=== PATIENT | male | born 1960 | race Caucasian/White ===

== ENCOUNTER → 2016-10-13 | Outpatient (CLI) | payer OTHER ==
[2016-10-13 11:02] LABS: ALT 28 U/L (21-72); AST 25 U/L (17-59); Cholesterol 231 mg/dL (<200); HDL Cholesterol 34 mg/dL (40-60); Triglycerides 453 mg/dL (<150)
== END | disposition home or self-care (01) ==
LOC: LABWHC1 10:05
PROVIDERS: ATTEND Internal Medicine Cardiovascular Disease
DX: E78.2 Mixed hyperlipidemia (principal)
CPT/HCPCS: 36415; 80061; 84450; 84460

== ENCOUNTER 2018-06-07 09:17 | Emergency (ER) | payer BC, OTHER ==
[2018-06-07 09:24] VITALS: TEMP 98.3
--- NOTE | 2018-06-07 09:54 | ED ---
General Adult HPI - General Chief complaint: Shortness of Breath Stated complaint: Diff Breathing Time Seen by Provider: 06/07/18 09:26 Source: patient, RN notes reviewed Mode of arrival: ambulatory Limitations: no limitations - History of Present Illness Initial comments: Patient is a pleasant 58-year-old male presenting to the emergency department with dyspnea. Onset of symptoms was last night while lying down. Dyspnea was worse while lying down. Patient states dyspnea is also somewhat worse with exertion. No chest pain. Patient does have a history of similar symptoms previously when he first was diagnosed with atrial fibrillation. Patient does have a history of atrial fibrillation and is on Coumadin. No chest discomfort. No chest heaviness. No leg pain or leg swelling. - Related Data Home Medications Medication Instructions Recorded Confirmed glyBURIDE [Glyburide] 2.5 mg PO BID 10/26/15 06/07/18 Warfarin [Coumadin] 5 mg PO HS 05/03/16 06/07/18 Lisinopril [Zestril] 5 mg PO HS 06/07/18 06/07/18 Previous Rx's Medication Instructions Recorded Aspirin EC [Ecotrin Low Dose] 81 mg PO DAILY #30 tablet. 10/29/15 Atenolol [Tenormin] 50 mg PO BID #60 tab 10/29/15 Atorvastatin [Lipitor] 40 mg PO HS #30 tab 10/29/15 Furosemide [Lasix] 40 mg PO BID #4 tablet 06/07/18 Allergies Allergy/AdvReac Type Severity Reaction Status Date / Time No Known Allergies Allergy Verified 06/07/18 09:51 Review of Systems ROS Statement: Those systems with pertinent positive or pertinent negative responses have been documented in the HPI. ROS Other: All systems not noted in ROS Statement are negative. Constitutional: Denies: fever Eyes: Denies: eye pain ENT: Denies: ear pain Respiratory: Reports: dyspnea. Denies: cough Cardiovascular: Reports: dyspnea on exertion, orthopnea. Denies: chest pain Endocrine: Denies: fatigue Gastrointestinal: Denies: abdominal pain Genitourinary: Denies: dysuria Musculoskeletal: Denies: back pain Skin: Denies: rash Neurological: Denies: weakness Past Medical History Past Medical History: Atrial Fibrillation, Diabetes Mellitus, Hyperlipidemia, Hypertension History of Any Multi-Drug Resistant Organisms: None Reported Past Surgical History: Heart Catheterization With Stent Past Psychological History: No Psychological Hx Reported Smoking Status: Former smoker Past Alcohol Use History: None Reported Past Drug Use History: Marijuana General Exam Limitations: no limitations General appearance: alert, in no apparent distress Head exam: Present: atraumatic Eye exam: Present: normal appearance, PERRL ENT exam: Present: normal oropharynx Neck exam: Present: normal inspection Respiratory exam: Present: normal lung sounds bilaterally Cardiovascular Exam: Present: irregular rhythm Expanded Peripheral pulses: 2+: Radial (R), Radial (L), Posterior Tibialis (R), Posterior Tibialis (L), Dorsalis Pedis (R), Dorsalis Pedis (L) GI/Abdominal exam: Present: soft. Absent: tenderness Extremities exam: Present: normal inspection. Absent: pedal edema, calf tenderness Neurological exam: Present: alert Psychiatric exam: Present: normal affect, normal mood Skin exam: Present: normal color Course Vital Signs 06/07/18 06/07/18 06/07/18 09:21 10:24 10:56 Temperature 98.3 F Pulse Rate 77 59 L 70 Respiratory 19 16 16 Rate Blood Pressure 170/98 142/104 159/91 O2 Sat by Pulse 98 98 97 Oximetry EKG Findings - EKG Comments: EKG Findings:: A. fib with rate of 73. QRS 100. QT 402. QTC 442. Normal axis. Normal QRS. Inverted T waves inferior. Medical Decision Making - Medical Decision Making Patient reevaluated and resting comfortably in bed. Patient updated on results and plan for admission. Patient is advised for admission and further evaluation and treatment. This included cardiac evaluation and cardiology consult. Despite this patient refuses. Patient is aware that symptoms could worsen and become life-threatening. Patient states he had other stuff that he needs to do. Patient does demonstrate medical decision making and will leave AGAINST MEDICAL ADVICE. Patient is agreeable to close follow-up with his doctor this week. - Lab Data Result diagrams: 06/07/18 10:00 06/07/18 10:00 Lab Results 06/07/18 06/07/18 06/07/18 Range/Units 10:00 10:00 10:00 WBC 8.7 (3.8-10.6) k/uL RBC 5.12 (4.30-5.90) m/uL Hgb 14.8 (13.0-17.5) gm/dL Hct 45.3 (39.0-53.0) % MCV 88.4 (80.0-100.0) fL MCH 28.8 (25.0-35.0) pg MCHC 32.6 (31.0-37.0) g/dL RDW 14.2 (11.5-15.5) % Plt Count 293 (150-450) k/uL Neutrophils % 69 % Lymphocytes % 19 % Monocytes % 7 % Eosinophils % 3 % Basophils % 1 % Neutrophils # 6.0 (1.3-7.7) k/uL Lymphocytes # 1.7 (1.0-4.8) k/uL Monocytes # 0.6 (0-1.0) k/uL Eosinophils # 0.2 (0-0.7) k/uL Basophils # 0.1 (0-0.2) k/uL PT (9.0-12.0) sec INR (<1.2) APTT (22.0-30.0) sec Sodium 142 (137-145) mmol/L Potassium 4.0 (3.5-5.1) mmol/L Chloride 109 H (98-107) mmol/L Carbon Dioxide 25 (22-30) mmol/L Anion Gap 8 mmol/L BUN 11 (9-20) mg/dL Creatinine 0.65 L (0.66-1.25) mg/dL Est GFR (CKD-EPI)AfAm >90 (>60 ml/min/1.73 sqM) Est GFR (CKD-EPI)NonAf >90 (>60 ml/min/1.73 sqM) Glucose 124 H (74-99) mg/dL Calcium 8.7 (8.4-10.2) mg/dL Total Bilirubin 0.6 (0.2-1.3) mg/dL AST 24 (17-59) U/L ALT 18 L (21-72) U/L Alkaline Phosphatase 67 (38-126) U/L Total Creatine Kinase 257 H (55-170) U/L CK-MB (CK-2) 6.4 H (0.0-2.4) ng/mL CK-MB (CK-2) Rel Index 2.5 Troponin I 0.013 (0.000-0.034) ng/mL NT-Pro-B Natriuret Pep pg/mL Total Protein 6.8 (6.3-8.2) g/dL Albumin 3.7 (3.5-5.0) g/dL 06/07/18 06/07/18 Range/Units 10:00 10:00 WBC (3.8-10.6) k/uL RBC (4.30-5.90) m/uL Hgb (13.0-17.5) gm/dL Hct (39.0-53.0) % MCV (80.0-100.0) fL MCH (25.0-35.0) pg MCHC (31.0-37.0) g/dL RDW (11.5-15.5) % Plt Count (150-450) k/uL Neutrophils % % Lymphocytes % % Monocytes % % Eosinophils % % Basophils % % Neutrophils # (1.3-7.7) k/uL Lymphocytes # (1.0-4.8) k/uL Monocytes # (0-1.0) k/uL Eosinophils # (0-0.7) k/uL Basophils # (0-0.2) k/uL PT 34.3 H (9.0-12.0) sec INR 3.8 H (<1.2) APTT 33.8 H (22.0-30.0) sec Sodium (137-145) mmol/L Potassium (3.5-5.1) mmol/L Chloride (98-107) mmol/L Carbon Dioxide (22-30) mmol/L Anion Gap mmol/L BUN (9-20) mg/dL Creatinine (0.66-1.25) mg/dL Est GFR (CKD-EPI)AfAm (>60 ml/min/1.73 sqM) Est GFR (CKD-EPI)NonAf (>60 ml/min/1.73 sqM) Glucose (74-99) mg/dL Calcium (8.4-10.2) mg/dL Total Bilirubin (0.2-1.3) mg/dL AST (17-59) U/L ALT (21-72) U/L Alkaline Phosphatase (38-126) U/L Total Creatine Kinase (55-170) U/L CK-MB (CK-2) (0.0-2.4) ng/mL CK-MB (CK-2) Rel Index Troponin I (0.000-0.034) ng/mL NT-Pro-B Natriuret Pep 1350 pg/mL Total Protein (6.3-8.2) g/dL Albumin (3.5-5.0) g/dL - Radiology Data Radiology results: image reviewed (Chest x-ray does show some increased interstitial markings.) Disposition Clinical Impression: Congestive heart failure Disposition: Left Against Medical Advice Instructions: Heart Failure (ER) Additional Instructions: Please follow-up with your doctor tomorrow or or no later than Tuesday. Return for chest pain, difficulty breathing, fatigue, worsening symptoms or other concerns. Prescriptions: Furosemide [Lasix] 40 mg PO BID #4 tablet Is patient prescribed a controlled substance at d/c from ED?: No Referrals: Payton Scott MD [Primary Care Provider] - 1-2 days Time of Disposition: 12:27
--- NOTE | 2018-06-07 10:29 | XR ---
EXAMINATION TYPE: XR chest 2V DATE OF EXAM: 06/07/2018 COMPARISON: Prior chest x-ray 05/03/2016 HISTORY: Difficulty breathing TECHNIQUE: Frontal and lateral views of the chest are obtained. FINDINGS: The heart is enlarged. Interstitium is increased. There is no evident pneumothorax or pleu ral effusion. Central vascularity is prominent. There are overlying cardiac leads. IMPRESSION: Findings suggest congestive heart failure, correlate. Follow-up recommended.
[2018-06-07 10:33] LABS: Basophils # (A) 0.1 k/uL (0-0.2); Basophils % (A) 1 %; Eosinophils # (A) 0.2 k/uL (0-0.7); Eosinophils % (A) 3 %; HCT 45.3 % (39.0-53.0); HGB 14.8 gm/dL (13.0-17.5); Lymphocytes # (A) 1.7 k/uL (1.0-4.8); Lymphocytes % (A) 19 %; MCH 28.8 pg (25.0-35.0); MCHC 32.6 g/dL (31.0-37.0); MCV 88.4 fL (80.0-100.0); Mean Platelet Volume 6.6; Monocytes # (A) 0.6 k/uL (0-1.0); Monocytes % (A) 7 %; Neutrophils % (A) 69 %; Platelet Count 293 k/uL (150-450); RBC 5.12 m/uL (4.30-5.90); RDW 14.2 % (11.5-15.5); WBC 8.7 k/uL (3.8-10.6)
[2018-06-07 10:46] LABS: ALT 18 U/L (21-72); AST 24 U/L (17-59); Albumin 3.7 g/dL (3.5-5.0); Alkaline Phosphatase 67 U/L (38-126); Anion Gap 8 mmol/L; Blood Urea Nitrogen 11 mg/dL (9-20); Calcium 8.7 mg/dL (8.4-10.2); Carbon Dioxide 25 mmol/L (22-30); Chloride 109 mmol/L (98-107); Glucose 124 mg/dL (74-99); Sodium 142 mmol/L (137-145); Total Bilirubin 0.6 mg/dL (0.2-1.3); Total Protein 6.8 g/dL (6.3-8.2)
[2018-06-07 10:48] LABS: INR 3.8 (<1.2); Partial Thromboplastin Time 33.8 sec (22.0-30.0); Prothrombin Time 34.3 sec (9.0-12.0)
[2018-06-07 11:03] LABS: Creatine Kinase MB 6.4 ng/mL (0.0-2.4); Troponin I 0.013 ng/mL (0.000-0.034)
[2018-06-07] MEDS ORDERED: FUROSEMIDE 10 MG/ML 4 ML VIAL IV STA (12:25)
[2018-06-07 12:41] VITALS: BP 157/107; PULSE 74; RESP 18
== END 2018-06-07 12:40 | disposition left against medical advice (07) ==
LOC: EC 09:17
DX: I50.9 Heart failure, unspecified (principal); I48.91 Unspecified atrial fibrillation; I11.0 Hypertensive heart disease with heart failure; E11.9 Type 2 diabetes mellitus without complications; Z87.891 Personal history of nicotine dependence; Z79.01 Long term (current) use of anticoagulants; Z79.84 Long term (current) use of oral hypoglycemic drugs; Z79.899 Other long term (current) drug therapy; Z95.5 Presence of coronary angioplasty implant and graft
CPT/HCPCS: 36415; 71046; 80053; 82550; 82553; 83880; 84484; 85025; 85610; 85730; 93005; 96374; 99285

== ENCOUNTER 2018-06-29 09:28 | Emergency (ER) | payer BC ==
[2018-06-29] MEDS ORDERED: MORPHINE SULFATE 2 MG/ML SYRINGE IVP STA (10:18)
[2018-06-29] MEDS ORDERED: ONDANSETRON 4 MG/2 ML VIAL IVP STA (10:18)
[2018-06-29] MEDS ORDERED: SODIUM CHLORIDE 0.9% 1,000 ML IV STA ×2 (10:18)
--- NOTE | 2018-06-29 10:49 | ED ---
Abdominal Pain HPI - General Chief Complaint: Abdominal Pain Stated Complaint: Stomach pain Time Seen by Provider: 06/29/18 09:56 Source: patient, RN notes reviewed, old records reviewed Mode of arrival: ambulatory Limitations: no limitations - History of Present Illness Initial Comments: 58-year-old male with left-sided epigastric abdominal pain radiating towards back for the past 2 days. Patient is concerning his pancreatitis. Reports he has a history of heart failure and has sent his heart. He denies a specific chest pain or shortness of breath. Patient relates that this pain is similar to his previous pains otitis episodes. Patient denies any leg swelling peripheral paresthesias, he states his pain is a 1210 while laying in bed. Denies any falls or trauma. - Related Data Home Medications Medication Instructions Recorded Confirmed glyBURIDE [Glyburide] 2.5 mg PO BID 10/26/15 06/29/18 Warfarin [Coumadin] 5 mg PO HS 05/03/16 06/29/18 Lisinopril [Zestril] 10 mg PO DAILY 06/29/18 06/29/18 Previous Rx's Medication Instructions Recorded Aspirin EC [Ecotrin Low Dose] 81 mg PO DAILY #30 tablet. 10/29/15 Atenolol [Tenormin] 50 mg PO BID #60 tab 10/29/15 Atorvastatin [Lipitor] 40 mg PO HS #30 tab 10/29/15 Furosemide [Lasix] 40 mg PO BID #4 tablet 06/07/18 Allergies Allergy/AdvReac Type Severity Reaction Status Date / Time No Known Allergies Allergy Verified 06/29/18 10:23 Review of Systems ROS Statement: Those systems with pertinent positive or pertinent negative responses have been documented in the HPI. ROS Other: All systems not noted in ROS Statement are negative. Past Medical History Past Medical History: Atrial Fibrillation, Diabetes Mellitus, Hyperlipidemia, Hypertension Additional Past Medical History / Comment(s): pancreatitis History of Any Multi-Drug Resistant Organisms: None Reported Past Surgical History: Heart Catheterization With Stent Past Psychological History: No Psychological Hx Reported Smoking Status: Former smoker Past Alcohol Use History: None Reported Past Drug Use History: Marijuana General Exam - General Exam Comments Initial Comments: Well-appearing 50-year-old male. Alert and oriented. Patient appears in acute distress. Limitations: no limitations General appearance: alert, in no apparent distress Head exam: Present: atraumatic, normocephalic, normal inspection Eye exam: Present: normal appearance, PERRL, EOMI. Absent: scleral icterus, conjunctival injection, periorbital swelling ENT exam: Present: normal exam, mucous membranes moist Neck exam: Present: normal inspection. Absent: tenderness, meningismus, lymphadenopathy Respiratory exam: Present: normal lung sounds bilaterally. Absent: respiratory distress, wheezes, rales, rhonchi, stridor Cardiovascular Exam: Present: regular rate, normal rhythm, normal heart sounds. Absent: systolic murmur, diastolic murmur, rubs, gallop, clicks GI/Abdominal exam: Present: soft, tenderness (Minimal epigastric and left upper quadrant tenderness.), normal bowel sounds. Absent: distended, guarding, rebound, rigid Extremities exam: Present: normal inspection, full ROM, normal capillary refill. Absent: tenderness, pedal edema, joint swelling, calf tenderness Back exam: Present: normal inspection Neurological exam: Present: alert Psychiatric exam: Present: normal affect, normal mood Course Vital Signs 06/29/18 06/29/18 06/29/18 09:40 11:26 13:58 Temperature 98.3 F Pulse Rate 62 70 65 Respiratory 20 18 18 Rate Blood Pressure 121/76 131/92 128/90 O2 Sat by Pulse 98 98 97 Oximetry 06/29/18 14:13 Temperature 98.0 F Pulse Rate 88 Respiratory 16 Rate Blood Pressure 135/82 O2 Sat by Pulse 98 Oximetry Medical Decision Making - Medical Decision Making Patient is a 58-year-old male presents return to the left upper quadrant abdominal pain for 2 days. Concern for pancreatitis. This time patient's labwork was reviewed and negative for any acute process. Patient labwork did show mild elevation of pancreatic enzymes. Lipase is 398. EKG was reviewed and shows A. fib. Patient has a history of A. fib. INR 2.4. Patient's white blood cell count is normal. Discussed at this time is a pancreatic enzymes are not high enough for admission. Liver enzymes are normal. Gall bladder ultrasound was reviewed and negative for any acute process. All questions answered return parameters were discussed. She has a follow-up appointment tomorrow with his PCP. - Lab Data Result diagrams: 06/29/18 10:10 06/29/18 10:10 Lab Results 10/18/18 10/18/18 10/18/18 Range/Units 10:10 10:10 10:10 WBC 9.0 (3.8-10.6) k/uL RBC 5.25 (4.30-5.90) m/uL Hgb 15.2 (13.0-17.5) gm/dL Hct 46.0 (39.0-53.0) % MCV 87.7 (80.0-100.0) fL MCH 28.9 (25.0-35.0) pg MCHC 33.0 (31.0-37.0) g/dL RDW 14.0 (11.5-15.5) % Plt Count 300 (150-450) k/uL Neutrophils % 66 % Lymphocytes % 21 % Monocytes % 7 % Eosinophils % 3 % Basophils % 1 % Neutrophils # 5.9 (1.3-7.7) k/uL Lymphocytes # 1.9 (1.0-4.8) k/uL Monocytes # 0.6 (0-1.0) k/uL Eosinophils # 0.2 (0-0.7) k/uL Basophils # 0.1 (0-0.2) k/uL PT (9.0-12.0) sec INR (<1.2) APTT (22.0-30.0) sec Sodium 142 (137-145) mmol/L Potassium 4.7 (3.5-5.1) mmol/L Chloride 111 H (98-107) mmol/L Carbon Dioxide 23 (22-30) mmol/L Anion Gap 8 mmol/L BUN 17 (9-20) mg/dL Creatinine 0.78 (0.66-1.25) mg/dL Est GFR (CKD-EPI)AfAm >90 (>60 ml/min/1.73 sqM) Est GFR (CKD-EPI)NonAf >90 (>60 ml/min/1.73 sqM) Glucose 128 H (74-99) mg/dL Plasma Lactic Acid Chris 1.6 (0.7-2.0) mmol/L Calcium 9.1 (8.4-10.2) mg/dL Total Bilirubin 0.8 (0.2-1.3) mg/dL AST 26 (17-59) U/L ALT 26 (21-72) U/L Alkaline Phosphatase 65 (38-126) U/L Troponin I (0.000-0.034) ng/mL NT-Pro-B Natriuret Pep pg/mL Total Protein 7.2 (6.3-8.2) g/dL Albumin 3.8 (3.5-5.0) g/dL Amylase 66 (30-110) U/L Lipase 396 H (23-300) U/L 06/29/18 06/29/18 06/29/18 Range/Units 10:10 10:10 10:10 WBC (3.8-10.6) k/uL RBC (4.30-5.90) m/uL Hgb (13.0-17.5) gm/dL Hct (39.0-53.0) % MCV (80.0-100.0) fL MCH (25.0-35.0) pg MCHC (31.0-37.0) g/dL RDW (11.5-15.5) % Plt Count (150-450) k/uL Neutrophils % % Lymphocytes % % Monocytes % % Eosinophils % % Basophils % % Neutrophils # (1.3-7.7) k/uL Lymphocytes # (1.0-4.8) k/uL Monocytes # (0-1.0) k/uL Eosinophils # (0-0.7) k/uL Basophils # (0-0.2) k/uL PT 21.7 H (9.0-12.0) sec INR 2.4 H (<1.2) APTT 29.5 (22.0-30.0) sec Sodium (137-145) mmol/L Potassium (3.5-5.1) mmol/L Chloride (98-107) mmol/L Carbon Dioxide (22-30) mmol/L Anion Gap mmol/L BUN (9-20) mg/dL Creatinine (0.66-1.25) mg/dL Est GFR (CKD-EPI)AfAm (>60 ml/min/1.73 sqM) Est GFR (CKD-EPI)NonAf (>60 ml/min/1.73 sqM) Glucose (74-99) mg/dL Plasma Lactic Acid Chris (0.7-2.0) mmol/L Calcium (8.4-10.2) mg/dL Total Bilirubin (0.2-1.3) mg/dL AST (17-59) U/L ALT (21-72) U/L Alkaline Phosphatase (38-126) U/L Troponin I <0.012 (0.000-0.034) ng/mL NT-Pro-B Natriuret Pep 597 pg/mL Total Protein (6.3-8.2) g/dL Albumin (3.5-5.0) g/dL Amylase (30-110) U/L Lipase (23-300) U/L 06/29/18 11:01 EKG performed at 1043 shows atrial fibrillation, T-wave abnormality considering inferior ischemia. Abnormal EKG noted. Ventricular rate 64 bpm. AL intervals and instructed. She mormonism 90 ms. QT QTc is 412/425 ms. - Radiology Data Radiology results: report reviewed Gallbladder is prominent size but no gallstones or gallbladder thickening. Correlate clinically. Chest x-rayNo acute crit primary process. Disposition Clinical Impression: Pancreatitis Disposition: HOME SELF-CARE Condition: Good Instructions: Pancreatitis (ED) Additional Instructions: Clear liquid diet for the next 1-2 days. Follow-up with your regular doctor. Return to emergency department if any alarming signs or symptoms occur. Is patient prescribed a controlled substance at d/c from ED?: No Referrals: Payton Scott MD [Primary Care Provider] - 1-2 days Time of Disposition: 13:55
[2018-06-29 11:05] LABS: Basophils # (A) 0.1 k/uL (0-0.2); Basophils % (A) 1 %; Eosinophils # (A) 0.2 k/uL (0-0.7); Eosinophils % (A) 3 %; HGB 15.2 gm/dL (13.0-17.5); Lymphocytes # (A) 1.9 k/uL (1.0-4.8); Lymphocytes % (A) 21 %; MCH 28.9 pg (25.0-35.0); MCV 87.7 fL (80.0-100.0); Mean Platelet Volume 7.1; Monocytes # (A) 0.6 k/uL (0-1.0); Monocytes % (A) 7 %; Neutrophils # (A) 5.9 k/uL (1.3-7.7); Neutrophils % (A) 66 %; Platelet Count 300 k/uL (150-450); RBC 5.25 m/uL (4.30-5.90)
[2018-06-29 11:13] LABS: Albumin 3.8 g/dL (3.5-5.0); Amylase 66 U/L (30-110); Anion Gap 8 mmol/L; Blood Urea Nitrogen 17 mg/dL (9-20); Calcium 9.1 mg/dL (8.4-10.2); Carbon Dioxide 23 mmol/L (22-30); Chloride 111 mmol/L (98-107); Glucose 128 mg/dL (74-99); Lipase 396 U/L (23-300); Sodium 142 mmol/L (137-145); Total Bilirubin 0.8 mg/dL (0.2-1.3); Total Protein 7.2 g/dL (6.3-8.2)
--- NOTE | 2018-06-29 11:15 | XR ---
EXAMINATION TYPE: XR chest 2V DATE OF EXAM: 06/29/2018 COMPARISON: 06/07/2018 HISTORY: Abdominal and chest pain TECHNIQUE: Frontal and lateral views of the chest are obtained. FINDINGS: There is no focal air space opacity, pleural effusion, or pneumothorax seen. The cardiac silhouette size is upper limits of normal. The osseous structures are intact. Mild degenerative monie nges of the thoracic spine are seen. IMPRESSION: No acute cardiopulmonary process.
--- NOTE | 2018-06-29 11:16 | XR ---
EXAMINATION TYPE: XR KUB DATE OF EXAM: 06/29/2018 11:06 AM CLINICAL HISTORY: Abdominal pain for 2 days TECHNIQUE: Single upright image of the abdomen is obtained. COMPARISON: None. FINDINGS: Scattered gas is seen in non-distended small bowel loops. Gas and fecal material is seen in non-distended colon. There is no visceromegaly, pneumoperitoneum, or abnormal calcification apprecia vivian. Phleboliths are noted within the pelvis. The lung bases are clear and the osseous structures are intact. 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 IMPRESSION: Nonobstructive bowel gas pattern.
[2018-06-29 11:30] LABS: INR 2.4 (<1.2); Partial Thromboplastin Time 29.5 sec (22.0-30.0); Prothrombin Time 21.7 sec (9.0-12.0)
[2018-06-29 11:39] LABS: ALT 26 U/L (21-72); Alkaline Phosphatase 65 U/L (38-126); Potassium 4.7 mmol/L (3.5-5.1)
[2018-06-29 11:40] LABS: AST 26 U/L (17-59)
--- NOTE | 2018-06-29 13:52 | US ---
EXAMINATION TYPE: US gallbladder DATE OF EXAM: 06/29/2018 COMPARISON: CT & US 2016 CLINICAL HISTORY: Pain. Abdomen pain, exam done portable in ER. EXAM MEASUREMENTS: Liver Length: 19.1 cm Gallbladder Wall: 0.2 cm CBD: 0.4 cm Right Kidney: 11.5 x 5.5 x 5.1 cm Pancreas: visualized portions wnl, limited by overlying midline bowel gas Liver: wnl Gallbladder: wnl CBD: wnl Right Kidney: wnl No significant abnormality seen at this time to account for patient's clinical symptoms. IMPRESSION: 1. Gallbladder prominent in size but no gallstones or gallbladder wall thickening. Correlate clinical ly..
[2018-06-29 14:14] VITALS: BP 135/82; PULSE 88; RESP 16; TEMP 98
== END 2018-06-29 14:10 | disposition home or self-care (01) ==
LOC: EC 09:28
DX: K85.90 Acute pancreatitis without necrosis or infection, unspecified (principal); I48.91 Unspecified atrial fibrillation; E11.9 Type 2 diabetes mellitus without complications; I10 Essential (primary) hypertension; Z79.01 Long term (current) use of anticoagulants; Z79.84 Long term (current) use of oral hypoglycemic drugs; Z79.899 Other long term (current) drug therapy; Z87.891 Personal history of nicotine dependence; Z95.5 Presence of coronary angioplasty implant and graft
CPT/HCPCS: 36415; 93005; 83880; 80053; 82150; 83605; 83690; 84484; 85025; 85610; 85730; 87040; 71046; 74018; 76705; 99285; 96374; 96361 ×3; J2270

== ENCOUNTER 2018-12-04 12:27 | Inpatient (IN) | payer BC ==
[2018-12-04] MEDS ORDERED: ONDANSETRON 4 MG/2 ML VIAL IVP STA (15:11)
[2018-12-04] MEDS ORDERED: MORPHINE SULFATE 4 MG/ML SYRINGE IV STA (15:11)
[2018-12-04 15:37] LABS: Appearance,Urine Clear (Clear); Bilirubin,Urine Negative (Negative); Blood,Urine Negative (Negative); Color,Urine Yellow; Glucose,Urine (UA) Negative (Negative); Ketones,Urine Negative (Negative); Leukocyte Esterase,Urine Negative (Negative); Nitrite,Urine Negative (Negative); PH, Urine 5.5 (5.0-8.0); Protein,Urine Trace (Negative); Specific Gravity,Urine 1.024 (1.001-1.035); Urobilinogen,Urine <2.0 mg/dL (<2.0)
[2018-12-04 15:39] LABS: Basophils # (A) 0.1 k/uL (0-0.2); Basophils % (A) 1 %; Eosinophils # (A) 0.1 k/uL (0-0.7); Eosinophils % (A) 0 %; HCT 46.1 % (39.0-53.0); HGB 14.9 gm/dL (13.0-17.5); Lymphocytes # (A) 1.3 k/uL (1.0-4.8); Lymphocytes % (A) 7 %; MCH 28.2 pg (25.0-35.0); MCHC 32.3 g/dL (31.0-37.0); MCV 87.1 fL (80.0-100.0); Mean Platelet Volume 7.4; Monocytes % (A) 5 %; Neutrophils # (A) 16.2 k/uL (1.3-7.7); Neutrophils % (A) 86 %; Platelet Count 384 k/uL (150-450); RBC 5.29 m/uL (4.30-5.90); WBC 18.9 k/uL (3.8-10.6)
[2018-12-04 15:48] LABS: INR 1.9 (<1.2); Partial Thromboplastin Time 30.9 sec (22.0-30.0)
[2018-12-04 15:51] LABS: ALT 26 U/L (21-72); AST 19 U/L (17-59); Albumin 4.1 g/dL (3.5-5.0); Alkaline Phosphatase 92 U/L (38-126); Amylase 41 U/L (30-110); Anion Gap 11 mmol/L; Blood Urea Nitrogen 14 mg/dL (9-20); Carbon Dioxide 24 mmol/L (22-30); Chloride 107 mmol/L (98-107); Glucose 144 mg/dL (74-99); Lipase 77 U/L (23-300); Potassium 3.9 mmol/L (3.5-5.1); Sodium 142 mmol/L (137-145); Total Bilirubin 0.9 mg/dL (0.2-1.3); Total Protein 7.3 g/dL (6.3-8.2)
--- NOTE | 2018-12-04 17:01 | CT ---
EXAMINATION TYPE: CT abdomen pelvis w con DATE OF EXAM: 12/04/2018 COMPARISON: 07/22/2016 HISTORY: Lower abdominal pain starting today. CT DLP: 1928.8 mGycm Automated exposure control for dose reduction was used. TECHNIQUE: Helical acquisition of images was performed from the lung bases through the pelvis. CONTRAST: Performed without Oral Contrast and with IV Contrast, patient injected with 100 mL of Isovu e 300. FINDINGS: LUNG BASES: No significant abnormality is appreciated. LIVER/GB: No significant abnormality is appreciated. PANCREAS: No significant abnormality is seen. SPLEEN: No significant abnormality is seen. ADRENALS: No significant abnormality is seen. KIDNEYS: No significant abnormality is seen. FREE AIR: No free air is visualized. RETROPERITONEAL ADENOPATHY: None visualized REPRODUCTIVE ORGANS: No significant abnormality is seen URINARY BLADDER: No significant abnormality is seen. PELVIC ADENOPATHY: None visualized. OSSEOUS STRUCTURES: No significant abnormality is seen. BOWEL: The striking CT finding is centered at the mid descending colon with there is a large divertic ulum which shows marked circumferential edematous reticulation of the descending mesocolon, which ext ends posteriorly to irregular thicken the anterior renal fascia and the left lateral conal fascia. Th marin inflammatory changes are associated with indistinct moderate circumferential mural descending col on thickening. There is no pneumatosis or pneumoperitoneum. No abnormal focal fluid collection. No faustino wel obstruction. The CT findings are consistent with moderate marked descending colon diverticulitis. There are scattered diverticula throughout the descending and sigmoid colon. Eventual follow-up dire ct visualization is advised to ensure a normal underlying mucosa, if not done recently. However, the differential diagnosis includes ischemic colitis as the segment of involved colon is krunal te long. Notwithstanding, the differential diagnostic consideration of diverticulitis is favored. Remainder of the colon is unremarkable. The stomach and duodenum and small bowel are unremarkable. OTHER: No acute vascular findings. IMPRESSION: MARKED PATTERN OF DESCENDING COLON DIVERTICULITIS.
--- NOTE | 2018-12-04 19:21 | ED ---
Abdominal Pain HPI - General Chief Complaint: Abdominal Pain Stated Complaint: ABd Pain Time Seen by Provider: 12/04/18 14:50 Source: patient Mode of arrival: ambulatory Limitations: no limitations - History of Present Illness Initial Comments: The patient is a 58-year-old male who presents to the emergency department with complaint of lower abdominal pain. His symptoms started today. The pain is described as a cramping sensation without radiation into his legs or groin. No history of similar pain in the past. He denies any back or flank pain. No changes in his urination to include dysuria, hematuria or difficulty voiding. He denies any changes in his stools to include melena, hematochezia, diarrhea or constipation. No fevers or chills. He denies a history of renal stones. No history of ulcerative colitis, Crohn's or diverticulitis. He did not attempt to take anything for his pain. The pain is not reproducible with movement. Denies any abdominal trauma. No ripping or tearing sensation to his back. Denies any unilateral numbness or weakness. Admits to nausea without vomiting. There are no other alleviating, precipitating or modifying factors. - Related Data Home Medications Medication Instructions Recorded Confirmed glyBURIDE [Glyburide] 2.5 mg PO BID 10/26/15 12/04/18 Warfarin [Coumadin] 5 mg PO HS 05/03/16 12/04/18 Lisinopril [Zestril] 10 mg PO DAILY 06/29/18 12/04/18 Previous Rx's Medication Instructions Recorded Aspirin EC [Ecotrin Low Dose] 81 mg PO DAILY #30 tablet. 10/29/15 Atenolol [Tenormin] 50 mg PO BID #60 tab 10/29/15 Atorvastatin [Lipitor] 40 mg PO HS #30 tab 10/29/15 Allergies Allergy/AdvReac Type Severity Reaction Status Date / Time No Known Allergies Allergy Verified 12/04/18 15:43 Review of Systems ROS Statement: Those systems with pertinent positive or pertinent negative responses have been documented in the HPI. ROS Other: All systems not noted in ROS Statement are negative. Past Medical History Past Medical History: Atrial Fibrillation, Diabetes Mellitus, Hyperlipidemia, Hypertension Additional Past Medical History / Comment(s): pancreatitis History of Any Multi-Drug Resistant Organisms: None Reported Past Surgical History: Heart Catheterization With Stent Past Psychological History: No Psychological Hx Reported Smoking Status: Former smoker Past Alcohol Use History: None Reported Past Drug Use History: Marijuana - Past Family History Father Family Medical History: Myocardial Infarction ([place]) Additional Family Medical History / Comment(s): heart disease General Exam Limitations: no limitations General appearance: alert, in no apparent distress Head exam: Present: atraumatic, normocephalic Eye exam: Present: normal appearance, PERRL, EOMI Pupils: Present: normal accommodation ENT exam: Present: normal exam, mucous membranes moist Neck exam: Present: normal inspection. Absent: tenderness Respiratory exam: Present: normal lung sounds bilaterally. Absent: respiratory distress, wheezes, rales, rhonchi Cardiovascular Exam: Present: regular rate, irregular rhythm GI/Abdominal exam: Present: soft, tenderness, normal bowel sounds, other (The patient has tenderness to palpation of the left and right lower quadrants. There are no peritoneal signs to include rebound, guarding or rigidity. No flank or periumbilical ecchymoses. No palpable masses or organomegaly). Absent: organomegaly, mass, bruit, pulsatile mass Rectal exam: Present: deferred Extremities exam: Present: normal inspection, full ROM, normal capillary refill Back exam: Present: normal inspection. Absent: CVA tenderness (R), CVA tenderness (L) Neurological exam: Present: alert, oriented X3 Psychiatric exam: Present: normal affect, normal mood Skin exam: Present: warm, dry Course Vital Signs 12/04/18 12/04/18 12/04/18 12:30 15:24 15:30 Temperature 98.6 F Pulse Rate 94 Respiratory 18 16 Rate Blood Pressure 162/99 132/96 132/96 O2 Sat by Pulse 98 95 95 Oximetry 12/04/18 12/04/18 12/04/18 16:00 17:00 18:00 Temperature Pulse Rate Respiratory 17 17 18 Rate Blood Pressure 131/79 136/87 143/93 O2 Sat by Pulse 97 97 Oximetry 12/04/18 12/04/18 19:38 19:50 Temperature 101.4 F H Pulse Rate 85 Respiratory 16 Rate Blood Pressure 136/87 O2 Sat by Pulse 100 Oximetry Procedures - [place] Protocol (Time Out) Nurse: Zenaida Venegas Medical Decision Making - Medical Decision Making The patient was seen by myself in room 11. He is hooked up to continuous pulse ox and cardiac monitoring. A 12-lead EKG is performed which demonstrates atrial fibrillation with a controlled ventricular response. There are no acute ST segment elevations or depressions concerning for ischemic changes. IV access is established. He is given 4 mg of morphine for his pain and 4 mg of Zofran for his nausea. I did recommend laboratory studies. The patient provided a urine sample. He is sent for a CT of his abdomen and pelvis. Upon return the results I did discuss them with the patient. His does present to bedside and I did discuss results with her as well. The patient does present with acute abdominal pain with CT findings of acute diverticulitis. The patient also has a white blood cell count of 18. He is informed that his INR is subtherapeutic at 1.9. I did recommend admission to the hospital for which the patient did agree. He was admitted to Dr. Xavier. I called and discussed the case with him and he accepted the admission. Blood cultures were drawn. The patient was started on Levaquin and Flagyl. I did consult Dr. Solorzano and Dr. Bolton. Bridging orders were placed. The patient was transported to the floor in stable condition. - Differential Diagnosis Colitis, diverticulitis, leukocytosis - Lab Data Result diagrams: 12/04/18 14:57 12/04/18 14:57 Lab Results 12/04/18 12/04/18 12/04/18 Range/Units 14:57 14:57 14:57 WBC 18.9 H (3.8-10.6) k/uL RBC 5.29 (4.30-5.90) m/uL Hgb 14.9 (13.0-17.5) gm/dL Hct 46.1 (39.0-53.0) % MCV 87.1 (80.0-100.0) fL MCH 28.2 (25.0-35.0) pg MCHC 32.3 (31.0-37.0) g/dL RDW 15.0 (11.5-15.5) % Plt Count 384 (150-450) k/uL Neutrophils % 86 % Lymphocytes % 7 % Monocytes % 5 % Eosinophils % 0 % Basophils % 1 % Neutrophils # 16.2 H (1.3-7.7) k/uL Lymphocytes # 1.3 (1.0-4.8) k/uL Monocytes # 1.0 (0-1.0) k/uL Eosinophils # 0.1 (0-0.7) k/uL Basophils # 0.1 (0-0.2) k/uL PT (9.0-12.0) sec INR (<1.2) APTT (22.0-30.0) sec Sodium 142 (137-145) mmol/L Potassium 3.9 (3.5-5.1) mmol/L Chloride 107 (98-107) mmol/L Carbon Dioxide 24 (22-30) mmol/L Anion Gap 11 mmol/L BUN 14 (9-20) mg/dL Creatinine 0.64 L (0.66-1.25) mg/dL Est GFR (CKD-EPI)AfAm >90 (>60 ml/min/1.73 sqM) Est GFR (CKD-EPI)NonAf >90 (>60 ml/min/1.73 sqM) Glucose 144 H (74-99) mg/dL Lactic Ac Sepsis Rflx Plasma Lactic Acid Chris 2.1 H* (0.7-2.0) mmol/L Calcium 9.0 (8.4-10.2) mg/dL Total Bilirubin 0.9 (0.2-1.3) mg/dL AST 19 (17-59) U/L ALT 26 (21-72) U/L Alkaline Phosphatase 92 (38-126) U/L Total Protein 7.3 (6.3-8.2) g/dL Albumin 4.1 (3.5-5.0) g/dL Amylase 41 (30-110) U/L Lipase 77 (23-300) U/L Urine Color Urine Appearance (Clear) Urine pH (5.0-8.0) Ur Specific [place] (1.001-1.035) Urine Protein (Negative) Urine Glucose (UA) (Negative) Urine Ketones (Negative) Urine Blood (Negative) Urine Nitrite (Negative) Urine Bilirubin (Negative) Urine Urobilinogen (<2.0) mg/dL Ur Leukocyte Esterase (Negative) 12/04/18 12/04/18 12/04/18 Range/Units 14:57 14:57 15:56 WBC (3.8-10.6) k/uL RBC (4.30-5.90) m/uL Hgb (13.0-17.5) gm/dL Hct (39.0-53.0) % MCV (80.0-100.0) fL MCH (25.0-35.0) pg MCHC (31.0-37.0) g/dL RDW (11.5-15.5) % Plt Count (150-450) k/uL Neutrophils % % Lymphocytes % % Monocytes % % Eosinophils % % Basophils % % Neutrophils # (1.3-7.7) k/uL Lymphocytes # (1.0-4.8) k/uL Monocytes # (0-1.0) k/uL Eosinophils # (0-0.7) k/uL Basophils # (0-0.2) k/uL PT 19.0 H (9.0-12.0) sec INR 1.9 H (<1.2) APTT 30.9 H (22.0-30.0) sec Sodium (137-145) mmol/L Potassium (3.5-5.1) mmol/L Chloride (98-107) mmol/L Carbon Dioxide (22-30) mmol/L Anion Gap mmol/L BUN (9-20) mg/dL Creatinine (0.66-1.25) mg/dL Est GFR (CKD-EPI)AfAm (>60 ml/min/1.73 sqM) Est GFR (CKD-EPI)NonAf (>60 ml/min/1.73 sqM) Glucose (74-99) mg/dL Lactic Ac Sepsis Rflx Y Plasma Lactic Acid Chris (0.7-2.0) mmol/L Calcium (8.4-10.2) mg/dL Total Bilirubin (0.2-1.3) mg/dL AST (17-59) U/L ALT (21-72) U/L Alkaline Phosphatase (38-126) U/L Total Protein (6.3-8.2) g/dL Albumin (3.5-5.0) g/dL Amylase (30-110) U/L Lipase (23-300) U/L Urine Color Yellow Urine Appearance Clear (Clear) Urine pH 5.5 (5.0-8.0) Ur Specific [place] 1.024 (1.001-1.035) Urine Protein Trace H (Negative) Urine Glucose (UA) Negative (Negative) Urine Ketones Negative (Negative) Urine Blood Negative (Negative) Urine Nitrite Negative (Negative) Urine Bilirubin Negative (Negative) Urine Urobilinogen <2.0 (<2.0) mg/dL Ur Leukocyte Esterase Negative (Negative) - EKG Data -: EKG Interpreted by Me EKG Comments: EKG demonstrates atrial fibrillation with a controlled ventricular response When compared to previous EKG there are: no significant change Interpretation: no acute changes - Radiology Data Radiology results: report reviewed CT of abdomen and pelvis demonstrates marked descending colon diverticulitis Disposition Clinical Impression: Diverticulitis, Atrial fibrillation Disposition: [facility] Condition: Stable Is patient prescribed a controlled substance at d/c from ED?: No Decision to Admit Reason: Admit from EC Decision Date: 12/04/18 Decision Time: 19:21
[2018-12-04] MEDS ORDERED: LEVOFLOXACIN 750MG-D5W PMX 750 MG in DEXTROSE/WATER 1 150ML.BAG IVPB STA (19:22)
[2018-12-04] MEDS ORDERED: ONDANSETRON 4 MG/2 ML VIAL IVP PRN (19:26)
[2018-12-04] MEDS ORDERED: MORPHINE SULFATE 4 MG/ML SYRINGE IV PRN (19:26)
[2018-12-04] MEDS ORDERED: NALOXONE 0.4 MG/ML 1 ML VIAL IV PRN (19:26)
[2018-12-04] MEDS ORDERED: ACETAMINOPHEN TAB 325 MG TAB PO STA (19:59)
[2018-12-04 20:56] LABS: Glucose,Whole Blood 123 mg/dL (75-99)
[2018-12-04] MEDS ORDERED: WARFARIN 5 MG TAB PO SCH (21:15)
[2018-12-04] MEDS: metroNIDAZOLE-NS PMX 500 MG in SALINE 1 100ML.BAG IVPB SCH (22:01)
[2018-12-04] MEDS: ATENOLOL 50 MG TAB PO SCH (22:01)
[2018-12-04] MEDS: LISINOPRIL 10 MG TAB PO SCH (22:01)
[2018-12-04] MEDS: glipiZIDE 5 MG TAB PO SCH (22:01)
[2018-12-04] MEDS: ATORVASTATIN 40 MG TAB PO SCH (22:01)
[2018-12-05 07:10] LABS: Glucose,Whole Blood 131 mg/dL (75-99)
[2018-12-05] MEDS: LISINOPRIL 10 MG TAB PO SCH (07:22)
[2018-12-05] MEDS: metroNIDAZOLE-NS PMX 500 MG in SALINE 1 100ML.BAG IVPB SCH ×3 (07:22→21:10)
[2018-12-05] MEDS: glipiZIDE 5 MG TAB PO SCH ×2 (07:22→17:42)
[2018-12-05] MEDS: ASPIRIN 81 MG PO SCH (07:22)
[2018-12-05] MEDS: ATENOLOL 50 MG TAB PO SCH ×2 (07:22→19:41)
[2018-12-05 09:17] LABS: Basophils # (A) 0.1 k/uL (0-0.2); Basophils % (A) 1 %; Eosinophils # (A) 0.2 k/uL (0-0.7); Eosinophils % (A) 1 %; HCT 42.6 % (39.0-53.0); Hypochromasia Slight; Lymphocytes # (A) 1.8 k/uL (1.0-4.8); Lymphocytes % (A) 14 %; MCH 28.7 pg (25.0-35.0); MCHC 32.8 g/dL (31.0-37.0); MCV 87.6 fL (80.0-100.0); Mean Platelet Volume 7.2; Monocytes # (A) 0.8 k/uL (0-1.0); Monocytes % (A) 6 %; Neutrophils # (A) 9.3 k/uL (1.3-7.7); Neutrophils % (A) 76 %; Platelet Count 343 k/uL (150-450); RBC 4.87 m/uL (4.30-5.90); RDW 14.8 % (11.5-15.5); WBC 12.2 k/uL (3.8-10.6)
[2018-12-05 09:20] LABS: Prothrombin Time 20.1 sec (9.0-12.0)
[2018-12-05 09:32] LABS: Anion Gap 6 mmol/L; Blood Urea Nitrogen 16 mg/dL (9-20); Calcium 8.5 mg/dL (8.4-10.2); Carbon Dioxide 27 mmol/L (22-30); Chloride 108 mmol/L (98-107); Glucose 124 mg/dL (74-99); Potassium 3.7 mmol/L (3.5-5.1); Sodium 141 mmol/L (137-145)
--- NOTE | 2018-12-05 10:14 | P.HPIM ---
History of Present Illness H&P Date: 12/05/18 This is a 58-year-old male patient of Dr. Valentin. Patient presented with complaints of abdominal pain for 1 day. Patient reports that he started to experience lower abdominal pain that started around 3 PM yesterday. Patient reports that he did have episodes of diarrhea with pain patient denies any nausea or vomiting. Patient does have past medical history of atrial fibrillation which she follows with Dr. Joiner for cardiology maintained on Coumadin. Additional medical history includes diabetes mellitus, hyperlipidemia, hypertension, pancreatitis and ex-smoker. CT of abdomen and pelvis completed showing marked pattern of descending colon diverticulitis. EKG completed showing atrial fibrillation with a heart rate of 100. white blood count elevated 18.9. Patient started on Levaquin and Flagyl. GI and surgical service is consulted. Blood culture ordered. At this time patient is currently resting comfortably in bed. Patient does state some improvement with abdominal discomfort. Patient denies chest pain or shortness breath. Patient denies nausea vomiting or diarrhea at this time. Patient denies any urinary burning or frequency Review of Systems Please refer to HPI otherwise unremarkable Past Medical History Past Medical History: Atrial Fibrillation, Diabetes Mellitus, Hyperlipidemia, Hypertension Additional Past Medical History / Comment(s): pancreatitis History of Any Multi-Drug Resistant Organisms: None Reported Past Surgical History: Heart Catheterization With Stent Additional Past Surgical History / Comment(s): teeth surgery Past Anesthesia/Blood Transfusion Reactions: No Reported Reaction Date of Last Stent Placement:: 2015 Past Psychological History: No Psychological Hx Reported Smoking Status: Former smoker Past Alcohol Use History: None Reported Past Drug Use History: Marijuana - Past Family History Father Family Medical History: Myocardial Infarction ([place]) Additional Family Medical History / Comment(s): heart disease Medications and Allergies Home Medications Medication Instructions Recorded Confirmed Type glyBURIDE [Glyburide] 2.5 mg PO BID 10/26/15 12/04/18 History Aspirin EC [Ecotrin Low Dose] 81 mg PO DAILY #30 tablet. 10/29/15 12/04/18 Rx Atenolol [Tenormin] 50 mg PO BID #60 tab 10/29/15 12/04/18 Rx Atorvastatin [Lipitor] 40 mg PO HS #30 tab 10/29/15 12/04/18 Rx Warfarin [Coumadin] 5 mg PO HS 05/03/16 12/04/18 History Lisinopril [Zestril] 10 mg PO DAILY 06/29/18 12/04/18 History Allergies Allergy/AdvReac Type Severity Reaction Status Date / Time No Known Allergies Allergy Verified 12/04/18 15:43 Physical Exam Vitals: Vital Signs Temp Pulse Pulse Resp BP BP Pulse Ox 12/05/18 05:16 98.5 F 64 18 104/70 100 12/04/18 21:30 99.4 F 93 16 137/79 96 12/04/18 19:50 101.4 F H 12/04/18 19:38 85 16 136/87 100 12/04/18 18:00 18 143/93 97 12/04/18 17:00 17 136/87 12/04/18 16:00 17 131/79 97 12/04/18 15:30 16 132/96 95 12/04/18 15:24 132/96 95 12/04/18 12:30 98.6 F 94 18 162/99 98 Intake and Output 12/04/18 12/05/18 12/05/18 22:59 06:59 14:59 Other: # Voids 1 Head normocephalic Neck supple Lungs clear to auscultation bilaterally no wheezing or crackles Heart regular rate and rhythm S1-S2, no rub or gallop Abdomen is soft nontender nondistended positive bowel sounds no hepatosplenomegaly. Some tenderness noted to left lower quadrant Extremities no edema Neuro alert and orientated to 3 Results CBC & Chem 7: 12/05/18 08:16 12/05/18 08:16 Labs: Abnormal Lab Results - Last 24 Hours (Table) 12/04/18 12/04/18 12/04/18 Range/Units 14:57 14:57 14:57 WBC 18.9 H (3.8-10.6) k/uL Neutrophils # 16.2 H (1.3-7.7) k/uL PT (9.0-12.0) sec INR (<1.2) APTT (22.0-30.0) sec Chloride (98-107) mmol/L Creatinine 0.64 L (0.66-1.25) mg/dL Glucose 144 H (74-99) mg/dL POC Glucose (mg/dL) (75-99) mg/dL Plasma Lactic Acid Chris 2.1 H* (0.7-2.0) mmol/L Urine Protein (Negative) 12/04/18 12/04/18 12/04/18 Range/Units 14:57 14:57 20:37 WBC (3.8-10.6) k/uL Neutrophils # (1.3-7.7) k/uL PT 19.0 H (9.0-12.0) sec INR 1.9 H (<1.2) APTT 30.9 H (22.0-30.0) sec Chloride (98-107) mmol/L Creatinine (0.66-1.25) mg/dL Glucose (74-99) mg/dL POC Glucose (mg/dL) 123 H (75-99) mg/dL Plasma Lactic Acid Chris (0.7-2.0) mmol/L Urine Protein Trace H (Negative) 12/05/18 12/05/18 12/05/18 Range/Units 06:54 08:16 08:16 WBC 12.2 H (3.8-10.6) k/uL Neutrophils # 9.3 H (1.3-7.7) k/uL PT (9.0-12.0) sec INR (<1.2) APTT (22.0-30.0) sec Chloride 108 H (98-107) mmol/L Creatinine 0.65 L (0.66-1.25) mg/dL Glucose 124 H (74-99) mg/dL POC Glucose (mg/dL) 131 H (75-99) mg/dL Plasma Lactic Acid Chris (0.7-2.0) mmol/L Urine Protein (Negative) 12/05/18 Range/Units 08:52 WBC (3.8-10.6) k/uL Neutrophils # (1.3-7.7) k/uL PT 20.1 H (9.0-12.0) sec INR 2.0 H (<1.2) APTT (22.0-30.0) sec Chloride (98-107) mmol/L Creatinine (0.66-1.25) mg/dL Glucose (74-99) mg/dL POC Glucose (mg/dL) (75-99) mg/dL Plasma Lactic Acid Chris (0.7-2.0) mmol/L Urine Protein (Negative) Thrombosis Risk Factor Assmnt - Choose All That Apply Any of the Below Risk Factors Present?: Yes Each Factor Represents 1 point: Age 41-60 years, Obesity (BMI >25) Other Risk Factors: No Other congenital or acquired thrombophilia - If yes, enter type in comment: No Thrombosis Risk Factor Assessment Total Risk Factor Score: 2 Thrombosis Risk Factor Assessment Level: Low Risk Assessment and Plan Assessment: 1. Abdominal pain with acute diverticulitis. CT of abdomen and pelvis completed showing marked pattern of descending colon diverticulitis. Patient started on Flagyl and Levaquin. Blood cultures ordered. White blood cell trending down to 12.2. Surgical and GI services consulted 2. Atrial fibrillation. Patient reports he follows with Dr. Joiner per cardiology. Patient is maintained on Coumadin 5 mg daily. Continue daily PT/INRs. Current INR 2.0. 3. Diabetes mellitus type 2. Patient maintained on glipizide. Sliding scale coverage has been added 4. Essential hypertension. Home meds resumed 5. History of pancreatitis. DVT prophylaxis Coumadin. GI prophylaxis Protonix Time with Patient: Greater than 30 (Greater than 60% of the total time spent in counseling and coordination of care. I performed an examination of the patient and discussed their management with the Nurse Practitioner. I have reviewed the Nurse Practitioner's notes and agree with the documented findings and plan of care)
[2018-12-05 11:30] LABS: Glucose,Whole Blood 128 mg/dL (75-99)
--- NOTE | 2018-12-05 11:36 | P.GSCN ---
History of Present Illness Consult date: 12/05/18 Reason for Consult: Acute diverticulitis Requesting physician: Shalonda Echols History of present illness: CHIEF COMPLAINT: abdominal pain HISTORY OF PRESENT ILLNESS: 58-year-old male who presented to the emergency room with a chief complaint of abdominal pain. Patient reports abdominal pain 1 day. He reports multiple episodes of nonbloody diarrhea. He reported nausea yesterday without episodes of emesis. Denies previous history of diverticulitis. Denies previous colonoscopy. This morning he is feeling better. Tolerating PO intake. Denies nausea or vomiting. Reports improvement in abdominal pain. No further episodes of diarrhea. PAST MEDICAL HISTORY: See list. PAST SURGICAL HISTORY: See list. SOCIAL HISTORY: No illicit drug use. REVIEW OF SYSTEMS: CONSTITUTIONAL: Denies fever or chills. HEENT: Denies blurred vision, vision changes, or eye pain. Denies hemoptysis CARDIOVASCULAR: Denies chest pain or pressure. RESPIRATORY: No shortness of breath. GASTROINTESTINAL: Refer to HPI for pertinent findings HEMATOLOGIC: Denies bleeding disorders. GENITOURINARY: Denies any blood in urine. SKIN: Denies pruitis. Denies rash. PHYSICAL EXAM: VITAL SIGNS: Reviewed. GENERAL: Well-developed in no acute distress. HEENT: No sclera icterus. Extraocular movements grossly intact. Moist buccal mucosa. Head is atraumatic, normocephalic. ABDOMEN: Obese. Soft. Nondistended. Tenderness upon palpation of left lower quadrant. NEUROLOGIC: Alert and oriented. Cranial nerves II through XII grossly intact. IMAGING: CT abdomen and pelvis: Marked pattern of descending colon diverticulitis. Differential diagnosis includes ischemic colitis as the segment involved is quite long. Not withstanding, the differential diagnostic consideration of diverticulitis is favored. No abdominal focal fluid collection. No bowel obstruction. Stomach and duodenum and small bowel are unremarkable. ASSESSMENT: 1. Abdominal pain, diarrhea, and nausea x 1 day 2. Acute diverticulitis 3. Leukocytosis PLAN: 1. Continue Levaquin and Flagyl 2. Diet as tolerated 3. Patient will require outpatient colonoscopy in 4 weeks Nurse practitioner note has been reviewed by physician. Signing provider agrees with the documented findings, assessment, and plan of care. Past Medical History Past Medical History: Atrial Fibrillation, Diabetes Mellitus, Hyperlipidemia, Hypertension Additional Past Medical History / Comment(s): pancreatitis History of Any Multi-Drug Resistant Organisms: None Reported Past Surgical History: Heart Catheterization With Stent Additional Past Surgical History / Comment(s): teeth surgery Past Anesthesia/Blood Transfusion Reactions: No Reported Reaction Date of Last Stent Placement:: 2015 Past Psychological History: No Psychological Hx Reported Smoking Status: Former smoker Past Alcohol Use History: None Reported Past Drug Use History: Marijuana - Past Family History Father Family Medical History: Myocardial Infarction ([place]) Additional Family Medical History / Comment(s): heart disease Medications and Allergies Home Medications Medication Instructions Recorded Confirmed Type glyBURIDE [Glyburide] 2.5 mg PO BID 10/26/15 12/04/18 History Aspirin EC [Ecotrin Low Dose] 81 mg PO DAILY #30 tablet. 10/29/15 12/04/18 Rx Atenolol [Tenormin] 50 mg PO BID #60 tab 10/29/15 12/04/18 Rx Atorvastatin [Lipitor] 40 mg PO HS #30 tab 10/29/15 12/04/18 Rx Warfarin [Coumadin] 5 mg PO HS 05/03/16 12/04/18 History Lisinopril [Zestril] 10 mg PO DAILY 06/29/18 12/04/18 History Allergies Allergy/AdvReac Type Severity Reaction Status Date / Time No Known Allergies Allergy Verified 12/04/18 15:43 Surgical - Exam Vital Signs Temp Pulse Resp BP Pulse Ox 98.6 F 94 18 162/99 98 12/04/18 12:30 12/04/18 12:30 12/04/18 12:30 12/04/18 12:30 12/04/18 12:30 Results - Labs 12/05/18 08:16 12/05/18 08:16 Abnormal Lab Results - Last 24 Hours (Table) 12/04/18 12/04/18 12/04/18 Range/Units 14:57 14:57 14:57 WBC 18.9 H (3.8-10.6) k/uL Neutrophils # 16.2 H (1.3-7.7) k/uL PT (9.0-12.0) sec INR (<1.2) APTT (22.0-30.0) sec Chloride (98-107) mmol/L Creatinine 0.64 L (0.66-1.25) mg/dL Glucose 144 H (74-99) mg/dL POC Glucose (mg/dL) (75-99) mg/dL Plasma Lactic Acid Chris 2.1 H* (0.7-2.0) mmol/L Urine Protein (Negative) 12/04/18 12/04/18 12/04/18 Range/Units 14:57 14:57 20:37 WBC (3.8-10.6) k/uL Neutrophils # (1.3-7.7) k/uL PT 19.0 H (9.0-12.0) sec INR 1.9 H (<1.2) APTT 30.9 H (22.0-30.0) sec Chloride (98-107) mmol/L Creatinine (0.66-1.25) mg/dL Glucose (74-99) mg/dL POC Glucose (mg/dL) 123 H (75-99) mg/dL Plasma Lactic Acid Chris (0.7-2.0) mmol/L Urine Protein Trace H (Negative) 12/05/18 12/05/18 12/05/18 Range/Units 06:54 08:16 08:16 WBC 12.2 H (3.8-10.6) k/uL Neutrophils # 9.3 H (1.3-7.7) k/uL PT (9.0-12.0) sec INR (<1.2) APTT (22.0-30.0) sec Chloride 108 H (98-107) mmol/L Creatinine 0.65 L (0.66-1.25) mg/dL Glucose 124 H (74-99) mg/dL POC Glucose (mg/dL) 131 H (75-99) mg/dL Plasma Lactic Acid Chris (0.7-2.0) mmol/L Urine Protein (Negative) 12/05/18 Range/Units 08:52 WBC (3.8-10.6) k/uL Neutrophils # (1.3-7.7) k/uL PT 20.1 H (9.0-12.0) sec INR 2.0 H (<1.2) APTT (22.0-30.0) sec Chloride (98-107) mmol/L Creatinine (0.66-1.25) mg/dL Glucose (74-99) mg/dL POC Glucose (mg/dL) (75-99) mg/dL Plasma Lactic Acid Chris (0.7-2.0) mmol/L Urine Protein (Negative) Diabetes panel 12/04/18 12/05/18 Range/Units 14:57 08:16 Sodium 142 141 (137-145) mmol/L Potassium 3.9 3.7 (3.5-5.1) mmol/L Chloride 107 108 H (98-107) mmol/L Carbon Dioxide 24 27 (22-30) mmol/L BUN 14 16 (9-20) mg/dL Creatinine 0.64 L 0.65 L (0.66-1.25) mg/dL Glucose 144 H 124 H (74-99) mg/dL Calcium 9.0 8.5 (8.4-10.2) mg/dL AST 19 (17-59) U/L ALT 26 (21-72) U/L Alkaline Phosphatase 92 (38-126) U/L Total Protein 7.3 (6.3-8.2) g/dL Albumin 4.1 (3.5-5.0) g/dL Calcium panel 12/04/18 12/05/18 Range/Units 14:57 08:16 Calcium 9.0 8.5 (8.4-10.2) mg/dL Albumin 4.1 (3.5-5.0) g/dL Pituitary panel 12/04/18 12/05/18 Range/Units 14:57 08:16 Sodium 142 141 (137-145) mmol/L Potassium 3.9 3.7 (3.5-5.1) mmol/L Chloride 107 108 H (98-107) mmol/L Carbon Dioxide 24 27 (22-30) mmol/L BUN 14 16 (9-20) mg/dL Creatinine 0.64 L 0.65 L (0.66-1.25) mg/dL Glucose 144 H 124 H (74-99) mg/dL Calcium 9.0 8.5 (8.4-10.2) mg/dL Adrenal panel 12/04/18 12/05/18 Range/Units 14:57 08:16 Sodium 142 141 (137-145) mmol/L Potassium 3.9 3.7 (3.5-5.1) mmol/L Chloride 107 108 H (98-107) mmol/L Carbon Dioxide 24 27 (22-30) mmol/L BUN 14 16 (9-20) mg/dL Creatinine 0.64 L 0.65 L (0.66-1.25) mg/dL Glucose 144 H 124 H (74-99) mg/dL Calcium 9.0 8.5 (8.4-10.2) mg/dL Total Bilirubin 0.9 (0.2-1.3) mg/dL AST 19 (17-59) U/L ALT 26 (21-72) U/L Alkaline Phosphatase 92 (38-126) U/L Total Protein 7.3 (6.3-8.2) g/dL Albumin 4.1 (3.5-5.0) g/dL
--- NOTE | 2018-12-05 12:21 | P.CONS ---
History of Present Illness - Reason for Consult Consult date: 12/05/18 Diverticulitis Requesting physician: Benedicto Xavier - Chief Complaint Abdominal pain - History of Present Illness 58-year-old male past history atrial fibrillation maintained on warfarin, nonalcoholic pancreatitis, hyperlipidemia, hypertension, diabetes, admitted with acute abdominal pain with nonbloody diarrhea without fever chills hematemesis hematochezia or melena 1-2 days. White count 18.9 presently 12.2. Hemoglobin 14. INR 2.0. CT abdomen pelvis with IV contrast reported marked pattern of descending colon diverticulitis. Receiving IV antibiotics. No history of diverticulitis. No history of colonoscopy. No weight loss. Patient was eating strawberries prior to admission. Abdominal pain improving. T-max 101.4. Review of Systems Constitutional: Denies fever, chills, sweats, weight gain, or loss. HEENT: Negative for migraines, blurred vision or loss, earaches, drainage, tinnitus, oral mucosal lesions, dysphagia, or odynophagia. Cardiac: Negative for chest pain, arrhythmias, or palpitation. Respiratory: Negative for shortness of breath, hemoptysis, cough, or sputum production. Gastrointestinal: See HPI for pertinent findings. Genitourinary: Negative for hematuria, urgency, frequency, polyuria, dysuria, or penile discharge. Musculoskeletal: Negative for muscle aches, swelling, arthritis, and arthralgias. Neurologic: Negative for stroke or TIA. Endocrine: Negative for thyroid problems. Skin: Negative for rash or itching. Psychiatric: Negative history for depression and anxiety Past Medical History Past Medical History: Atrial Fibrillation, Diabetes Mellitus, Hyperlipidemia, Hypertension Additional Past Medical History / Comment(s): pancreatitis History of Any Multi-Drug Resistant Organisms: None Reported Past Surgical History: Heart Catheterization With Stent Additional Past Surgical History / Comment(s): teeth surgery Past Anesthesia/Blood Transfusion Reactions: No Reported Reaction Date of Last Stent Placement:: 2015 Past Psychological History: No Psychological Hx Reported Smoking Status: Former smoker Past Alcohol Use History: None Reported Past Drug Use History: Marijuana - Past Family History Father Family Medical History: Myocardial Infarction ([place]) Additional Family Medical History / Comment(s): heart disease Medications and Allergies Home Medications Medication Instructions Recorded Confirmed Type glyBURIDE [Glyburide] 2.5 mg PO BID 10/26/15 12/04/18 History Aspirin EC [Ecotrin Low Dose] 81 mg PO DAILY #30 tablet. 10/29/15 12/04/18 Rx Atenolol [Tenormin] 50 mg PO BID #60 tab 10/29/15 12/04/18 Rx Atorvastatin [Lipitor] 40 mg PO HS #30 tab 10/29/15 12/04/18 Rx Warfarin [Coumadin] 5 mg PO HS 05/03/16 12/04/18 History Lisinopril [Zestril] 10 mg PO DAILY 06/29/18 12/04/18 History Allergies Allergy/AdvReac Type Severity Reaction Status Date / Time No Known Allergies Allergy Verified 12/04/18 15:43 Physical Exam Vitals: Vital Signs Temp Pulse Pulse Resp BP BP Pulse Ox 12/05/18 05:16 98.5 F 64 18 104/70 100 12/04/18 21:30 99.4 F 93 16 137/79 96 12/04/18 19:50 101.4 F H 12/04/18 19:38 85 16 136/87 100 12/04/18 18:00 18 143/93 97 12/04/18 17:00 17 136/87 12/04/18 16:00 17 131/79 97 12/04/18 15:30 16 132/96 95 12/04/18 15:24 132/96 95 12/04/18 12:30 98.6 F 94 18 162/99 98 Intake and Output 12/04/18 12/05/18 12/05/18 22:59 06:59 14:59 Other: # Voids 1 General appearance: The patient is alert, oriented, in no acute distress. HET: Head is normocephalic and atraumatic. Pupils are equal and reactive. Oropharynx is clear without lesions. Neck: Supple without lymphadenopathy. Trachea midline. Heart: S1 S2. Lungs: No crackles or wheezes are heard. Abdomen: Soft, mild tenderness to bilateral lower abdomen greater than left and right, nondistended with bowel sounds. No peritoneal signs. No palpable organomegaly or masses. Extremities: Normal skin color and turgor. No cyanosis, rash, ulceration, clubbing, or edema. Radial and pedal pulses are 2/4 bilaterally. Neurological: No focal deficits. Strength and sensation are grossly intact. Results CBC & Chem 7: 12/06/18 07:38 12/06/18 07:38 Labs: Abnormal Lab Results - Last 24 Hours (Table) 12/04/18 12/04/18 12/04/18 Range/Units 14:57 14:57 14:57 WBC 18.9 H (3.8-10.6) k/uL Neutrophils # 16.2 H (1.3-7.7) k/uL PT (9.0-12.0) sec INR (<1.2) APTT (22.0-30.0) sec Chloride (98-107) mmol/L Creatinine 0.64 L (0.66-1.25) mg/dL Glucose 144 H (74-99) mg/dL POC Glucose (mg/dL) (75-99) mg/dL Plasma Lactic Acid Chris 2.1 H* (0.7-2.0) mmol/L Urine Protein (Negative) 12/04/18 12/04/18 12/04/18 Range/Units 14:57 14:57 20:37 WBC (3.8-10.6) k/uL Neutrophils # (1.3-7.7) k/uL PT 19.0 H (9.0-12.0) sec INR 1.9 H (<1.2) APTT 30.9 H (22.0-30.0) sec Chloride (98-107) mmol/L Creatinine (0.66-1.25) mg/dL Glucose (74-99) mg/dL POC Glucose (mg/dL) 123 H (75-99) mg/dL Plasma Lactic Acid Chris (0.7-2.0) mmol/L Urine Protein Trace H (Negative) 12/05/18 12/05/18 12/05/18 Range/Units 06:54 08:16 08:16 WBC 12.2 H (3.8-10.6) k/uL Neutrophils # 9.3 H (1.3-7.7) k/uL PT (9.0-12.0) sec INR (<1.2) APTT (22.0-30.0) sec Chloride 108 H (98-107) mmol/L Creatinine 0.65 L (0.66-1.25) mg/dL Glucose 124 H (74-99) mg/dL POC Glucose (mg/dL) 131 H (75-99) mg/dL Plasma Lactic Acid Chris (0.7-2.0) mmol/L Urine Protein (Negative) 12/05/18 12/05/18 Range/Units 08:52 11:28 WBC (3.8-10.6) k/uL Neutrophils # (1.3-7.7) k/uL PT 20.1 H (9.0-12.0) sec INR 2.0 H (<1.2) APTT (22.0-30.0) sec Chloride (98-107) mmol/L Creatinine (0.66-1.25) mg/dL Glucose (74-99) mg/dL POC Glucose (mg/dL) 128 H (75-99) mg/dL Plasma Lactic Acid Chris (0.7-2.0) mmol/L Urine Protein (Negative) CT scan - abdomen: report reviewed (Dr. Solorzano) Assessment and Plan (1) Abdominal pain Narrative/Plan: 58-year-old male presents with acute abdominal pain nonbloody diarrhea CT reported descending colon acute diverticulitis without abscess or pneumoperitoneum. Current Visit: Yes Status: Acute Code(s): R10.9 - UNSPECIFIED ABDOMINAL PAIN SNOMED Code(s): 91016948 (2) Diverticulitis large intestine Current Visit: Yes Status: Acute Code(s): K57.32 - DVTRCLI OF LG INT W/O PERFORATION OR ABSCESS W/O BLEEDING SNOMED Code(s): 5850402 (3) Warfarin-induced coagulopathy Current Visit: Yes Status: Acute Code(s): D68.32 - HEMORRHAGIC DISORD D/T EXTRINSIC CIRCULATING ANTICOAGULANTS; T45.515A - ADVERSE EFFECT OF ANTICOAGULANTS, INITIAL ENCOUNTER SNOMED Code(s): 66979012 (4) Atrial fibrillation Current Visit: Yes Status: Acute Code(s): I48.91 - UNSPECIFIED ATRIAL FIBRILLATION SNOMED Code(s): 25279610 (5) Fever Current Visit: Yes Status: Acute Code(s): R50.9 - FEVER, UNSPECIFIED SNOMED Code(s): 029420830 Plan: 1. IV antibiotics; outpatient antibiotics 10-14 days. Low residue soft GI diet as tolerated. Outpatient colonoscopy 4-6 weeks. Thank you for this kind referral and the opportunity to participate in the care of your patient. This consultation was discussed with Dr. Solorzano. The impression and plan of care have been directed as dictated.
[2018-12-05] MEDS: INSULIN ASPART (NovoLOG) 100 UNIT/ML VIAL SQ SCH ×3 (12:23→20:32)
[2018-12-05] MEDS: SODIUM CHLORIDE 0.9% 1,000 ML IV SCH ×2 (12:42→21:10)
[2018-12-05 17:09] LABS: Glucose,Whole Blood 108 mg/dL (75-99)
[2018-12-05] MEDS ORDERED: WARFARIN 7.5 MG TAB PO ONE (18:00)
[2018-12-05] MEDS ORDERED: LEVOFLOXACIN 750MG-D5W PMX 750 MG in DEXTROSE/WATER 1 150ML.BAG IVPB SCH (19:00)
[2018-12-05] MEDS: ATORVASTATIN 40 MG TAB PO SCH (19:41)
[2018-12-05 20:21] LABS: Glucose,Whole Blood 127 mg/dL (75-99)
[2018-12-06 06:53] LABS: Glucose,Whole Blood 115 mg/dL (75-99)
[2018-12-06] MEDS: INSULIN ASPART (NovoLOG) 100 UNIT/ML VIAL SQ SCH ×2 (07:05→12:48)
[2018-12-06] MEDS: LISINOPRIL 10 MG TAB PO SCH (07:11)
[2018-12-06] MEDS: ASPIRIN 81 MG PO SCH (07:12)
[2018-12-06] MEDS: ATENOLOL 50 MG TAB PO SCH (07:12)
[2018-12-06] MEDS: glipiZIDE 5 MG TAB PO SCH (07:12)
[2018-12-06] MEDS: SODIUM CHLORIDE 0.9% 1,000 ML IV SCH (07:12)
[2018-12-06] MEDS: metroNIDAZOLE-NS PMX 500 MG in SALINE 1 100ML.BAG IVPB SCH (07:17)
[2018-12-06 07:54] LABS: Basophils % (A) 0 %; Eosinophils # (A) 0.3 k/uL (0-0.7); Eosinophils % (A) 4 %; HCT 43.5 % (39.0-53.0); HGB 13.5 gm/dL (13.0-17.5); Lymphocytes # (A) 1.9 k/uL (1.0-4.8); Lymphocytes % (A) 19 %; MCHC 31.2 g/dL (31.0-37.0); MCV 86.5 fL (80.0-100.0); Monocytes # (A) 0.7 k/uL (0-1.0); Monocytes % (A) 7 %; Neutrophils # (A) 6.8 k/uL (1.3-7.7); Neutrophils % (A) 69 %; Platelet Count 305 k/uL (150-450); RBC 5.02 m/uL (4.30-5.90); RDW 14.4 % (11.5-15.5); WBC 9.8 k/uL (3.8-10.6)
[2018-12-06 08:00] LABS: INR 2.2 (<1.2); Prothrombin Time 21.6 sec (9.0-12.0)
--- NOTE | 2018-12-06 08:48 | P.PN ---
Subjective Progress Note Date: 12/06/18 CHIEF COMPLAINT: abdominal pain HISTORY OF PRESENT ILLNESS: Patient examined at the bedside. He is sitting beside the bed eating breakfast. He denies nausea or vomiting. Reports formed bowel movement this morning. Stool is normal in characteristics per patient. Denies abdominal pain. WBC within normal limits. Patient is hoping to be discharged home today. PHYSICAL EXAM: VITAL SIGNS: Reviewed. GENERAL: Well-developed in no acute distress. HEENT: No sclera icterus. Extraocular movements grossly intact. Moist buccal mucosa. Head is atraumatic, normocephalic. ABDOMEN: Obese. Soft. Nondistended. Nontender. NEUROLOGIC: Alert and oriented. Cranial nerves II through XII grossly intact. IMAGING: CT abdomen and pelvis: Marked pattern of descending colon diverticulitis. Differential diagnosis includes ischemic colitis as the segment involved is quit e long. Not withstanding, the differential diagnostic consideration of diverticulitis is favored. No abdominal focal fluid collection. No bowel obstruction. Stomach and duodenum and small bowel are unremarkable. ASSESSMENT: 1. Abdominal pain, diarrhea, and nausea x 1 day 2. Acute diverticulitis 3. Leukocytosis, resolved PLAN: 1. Continue Levaquin and Flagyl 2. Diet as tolerated 3. Patient will require outpatient colonoscopy in 4 weeks 4. Patient is stable for discharge from surgical standpoint Nurse practitioner note has been reviewed by physician. Signing provider agrees with the documented findings, assessment, and plan of care. Objective - Vital Signs Vital signs: Vital Signs Temp 96.7 F L 12/06/18 05:39 Pulse 67 12/06/18 05:39 Resp 18 12/06/18 05:39 BP 132/80 12/06/18 05:39 Pulse Ox 96 12/06/18 05:39 Intake & Output 12/05/18 12/06/18 12/06/18 18:59 06:59 18:59 Intake Total 840 Balance 840 Intake: Oral 840 Other: # Voids 2 1 # Bowel Movements 1 - Labs CBC & Chem 7: 12/06/18 07:38 12/05/18 08:16 Labs: Abnormal Lab Results - Last 24 Hours (Table) 12/05/18 12/05/18 12/05/18 Range/Units 08:16 08:16 08:52 WBC 12.2 H (3.8-10.6) k/uL Neutrophils # 9.3 H (1.3-7.7) k/uL PT 20.1 H (9.0-12.0) sec INR 2.0 H (<1.2) Chloride 108 H (98-107) mmol/L Creatinine 0.65 L (0.66-1.25) mg/dL Glucose 124 H (74-99) mg/dL POC Glucose (mg/dL) (75-99) mg/dL 12/05/18 12/05/18 12/05/18 Range/Units 11:28 16:48 20:19 WBC (3.8-10.6) k/uL Neutrophils # (1.3-7.7) k/uL PT (9.0-12.0) sec INR (<1.2) Chloride (98-107) mmol/L Creatinine (0.66-1.25) mg/dL Glucose (74-99) mg/dL POC Glucose (mg/dL) 128 H 108 H 127 H (75-99) mg/dL 12/06/18 12/06/18 Range/Units 06:51 07:38 WBC (3.8-10.6) k/uL Neutrophils # (1.3-7.7) k/uL PT 21.6 H (9.0-12.0) sec INR 2.2 H (<1.2) Chloride (98-107) mmol/L Creatinine (0.66-1.25) mg/dL Glucose (74-99) mg/dL POC Glucose (mg/dL) 115 H (75-99) mg/dL Microbiology - Last 24 Hours (Table) 12/04/18 19:40 Blood Culture - Preliminary Blood No Growth after 24 hours
[2018-12-06 09:00] LABS: ALT 25 U/L (21-72); AST 19 U/L (17-59); Albumin 3.5 g/dL (3.5-5.0); Alkaline Phosphatase 77 U/L (38-126); Anion Gap 7 mmol/L; Blood Urea Nitrogen 16 mg/dL (9-20); Calcium 8.3 mg/dL (8.4-10.2); Carbon Dioxide 25 mmol/L (22-30); Chloride 112 mmol/L (98-107); Glucose 130 mg/dL (74-99); Sodium 144 mmol/L (137-145); Total Bilirubin 0.7 mg/dL (0.2-1.3); Total Protein 6.9 g/dL (6.3-8.2)
[2018-12-06] MEDS ORDERED: PANTOPRAZOLE 40 MG/10 ML VIAL IVP SCH (09:00)
--- NOTE | 2018-12-06 11:57 | P.PN ---
Subjective Progress Note Date: 12/06/18 Principal diagnosis: Acute colonic diverticulitis Feels better. White count normalized. Tolerating diet. Afebrile. Objective - Vital Signs Vital signs: Vital Signs Temp 96.7 F L 12/06/18 05:39 Pulse 67 12/06/18 05:39 Resp 18 12/06/18 05:39 BP 132/80 12/06/18 05:39 Pulse Ox 96 12/06/18 05:39 Intake & Output 12/05/18 12/06/18 12/06/18 18:59 06:59 18:59 Intake Total 840 Balance 840 Intake: Oral 840 Other: # Voids 2 1 # Bowel Movements 1 - Exam General appearance: The patient is alert, oriented, in no acute distress. HET: Head is normocephalic and atraumatic. Pupils are equal and reactive. Oropharynx is clear without lesions. Neck: Supple without lymphadenopathy. Trachea midline. Heart: S1 S2. Regular rate and rhythm. Lungs: No crackles or wheezes are heard. Abdomen: Soft, mild bilateral lower abdominal tenderness, nondistended with bowel sounds. No peritoneal signs. No palpable organomegaly or masses. Extremities: Normal skin color and turgor. No cyanosis, rash, ulceration, clubbing, or edema. Radial and pedal pulses are 2/4 bilaterally. Neurological: No focal deficits. Strength and sensation are grossly intact. - Labs CBC & Chem 7: 12/06/18 07:38 12/06/18 07:38 Labs: Abnormal Lab Results - Last 24 Hours (Table) 12/05/18 12/05/18 12/06/18 Range/Units 16:48 20:19 06:51 PT (9.0-12.0) sec INR (<1.2) Chloride (98-107) mmol/L Glucose (74-99) mg/dL POC Glucose (mg/dL) 108 H 127 H 115 H (75-99) mg/dL Calcium (8.4-10.2) mg/dL 12/06/18 12/06/18 Range/Units 07:38 07:38 PT 21.6 H (9.0-12.0) sec INR 2.2 H (<1.2) Chloride 112 H (98-107) mmol/L Glucose 130 H (74-99) mg/dL POC Glucose (mg/dL) (75-99) mg/dL Calcium 8.3 L (8.4-10.2) mg/dL Microbiology - Last 24 Hours (Table) 12/04/18 19:40 Blood Culture - Preliminary Blood No Growth after 24 hours Assessment and Plan (1) Abdominal pain Narrative/Plan: 58-year-old male presents with acute abdominal pain nonbloody diarrhea CT reported descending colon acute diverticulitis without abscess or pneumoperitoneum. Current Visit: Yes Status: Acute Code(s): R10.9 - UNSPECIFIED ABDOMINAL PAIN SNOMED Code(s): 87154260 (2) Diverticulitis large intestine Current Visit: Yes Status: Acute Code(s): K57.32 - DVTRCLI OF LG INT W/O PERFORATION OR ABSCESS W/O BLEEDING SNOMED Code(s): 3500622 (3) Warfarin-induced coagulopathy Current Visit: Yes Status: Acute Code(s): D68.32 - HEMORRHAGIC DISORD D/T EXTRINSIC CIRCULATING ANTICOAGULANTS; T45.515A - ADVERSE EFFECT OF ANTICOAGULANTS, INITIAL ENCOUNTER SNOMED Code(s): 32505339 (4) Atrial fibrillation Current Visit: Yes Status: Acute Code(s): I48.91 - UNSPECIFIED ATRIAL FIBRILLATION SNOMED Code(s): 51751819 Plan: 1. Discharge per medicine. ABX 10-14 days. Recommend outpatient colonoscopy 3-4 weeks. Assessment and plan a care discussed with Dr. Solorzano
[2018-12-06 12:18] LABS: Glucose,Whole Blood 97 mg/dL (75-99)
[2018-12-06 13:34] VITALS: BP 138/87; PULSE 82; RESP 16; TEMP 98.4
--- NOTE | 2018-12-06 14:02 | P.DS ---
Providers Date of admission: 12/04/18 19:21 Expected date of discharge: 12/06/18 Attending physician: Benedicto Xavier Consults: 12/04/18 19:28 Consult Physician Urgent Consulting Provider: Rodolfo Bolton Consult Reason/Comments: acute diverticulitis Do you want consulting provider notified?: Yes Primary care physician: Payton Scott Hospital Course: Discharge diagnosis 1. Abdominal pain with acute diverticulitis. CT of abdomen and pelvis completed showing marked pattern of descending colon diverticulitis. Patient started on Flagyl and Levaquin. Blood culture showing no growth. White blood cell improving to 9.8. Patient was evaluated by GI and surgical services. Patient has been cleared for discharge from postsurgical and GI services. Rec ommending follow-up in 4 weeks for colonoscopy. Patient will be DC'd on Levaquin and Flagyl for 10 more days 2. Atrial fibrillation. Patient reports he follows with Dr. Joiner per cardiology. Patient is maintained on Coumadin 5 mg daily. Continue daily PT/INRs. Current INR 2.2. Patient to resume home dose of Coumadin. Recheck for PT/INR in 2 days. Patient also advised to follow-up closely with his PCP for monitoring while on antibiotics. Recommend twice weekly until antibiotic completion. 3. Diabetes mellitus type 2. Patient maintained on glipizide. Sliding scale coverage has been added 4. Essential hypertension. Home meds resumed 5. History of pancreatitis. Hospital course This is a 58-year-old male patient of Dr. Valentin. Patient presented with complaints of abdominal pain for 1 day. Patient reports that he started to experience lower abdominal pain that started around 3 PM yesterday. Patient reports that he did have episodes of diarrhea with pain patient denies any nausea or vomiting. Patient does have past medical history of atrial fibrillation which she follows with Dr. Joiner for cardiology maintained on Coumadin. Additional medical history includes diabetes mellitus, hyperlipidemia, hypertension, pancreatitis and ex-smoker. CT of abdomen and pelvis completed showing marked pattern of descending colon diverticulitis. EKG completed showing atrial fibrillation with a heart rate of 100. white blood count elevated 18.9. Patient started on Levaquin and Flagyl. GI and surgical service is consulted. Blood culture ordered. At this time patient is currently resting comfortably in bed. Patient does state some improvement with abdominal discomfort. Patient denies chest pain or shortness breath. Patient denies nausea vomiting or diarrhea at this time. Patient denies any urinary burning or frequency On 12/06/2018 patient is alert and oriented 3. Patient denies any abdominal pain at this time states significant improvement. Patient has been cleared for discharge from surgical and GI services. Will discharge patient on 10 more days of Levaquin and Flagyl. Patient also to resume home Coumadin dose of 5 mg torri y. PT/INR today 2.2. Will order repeat PT/INR for 2 days due to patient being on Coumadin and Flagyl. Recommend close monitoring twice weekly until completion of antibiotic per PCP. At this time patient denies chest pain or shortness breath. Patient denies nausea vomiting or diarrhea. Patient denies any urinary burning or frequency I performed an examination of the patient and discussed their management with the Nurse Practitioner. I have reviewed the Nurse Practitioner's notes and agree with the documented findings and plan of care Patient Condition at Discharge: Stable Plan - Discharge Summary Discharge Rx Participant: No New Discharge Prescriptions: New metroNIDAZOLE [Flagyl] 500 mg PO Q8HR 10 Days #30 tab Levofloxacin [Levaquin] 500 mg PO DAILY 10 Days #10 tab Continue glyBURIDE [Glyburide] 2.5 mg PO BID Aspirin EC [Ecotrin Low Dose] 81 mg PO DAILY #30 tablet. Atenolol [Tenormin] 50 mg PO BID #60 tab Atorvastatin [Lipitor] 40 mg PO HS #30 tab Warfarin [Coumadin] 5 mg PO HS Lisinopril [Zestril] 10 mg PO DAILY Discharge Medication List glyBURIDE [Glyburide] 2.5 mg PO BID 10/26/15 [History] Aspirin EC [Ecotrin Low Dose] 81 mg PO DAILY #30 tablet. 10/29/15 [Rx] Atenolol [Tenormin] 50 mg PO BID #60 tab 10/29/15 [Rx] Atorvastatin [Lipitor] 40 mg PO HS #30 tab 10/29/15 [Rx] Warfarin [Coumadin] 5 mg PO HS 05/03/16 [History] Lisinopril [Zestril] 10 mg PO DAILY 06/29/18 [History] Levofloxacin [Levaquin] 500 mg PO DAILY 10 Days #10 tab 12/06/18 [Rx] metroNIDAZOLE [Flagyl] 500 mg PO Q8HR 10 Days #30 tab 12/06/18 [Rx] Follow up Appointment(s)/Referral(s): Payton Scott MD [Primary Care Provider] - 1-2 days Devendra Solorzano MD [STAFF PHYSICIAN] - 12/15/18 10:00 am Rodolfo Bolton MD [STAFF PHYSICIAN] - 1 Week Ambulatory/Diagnostic Orders: Prothrombin Time INR [LAB.AMB] Time Frame: 2 Days, Location: None Selected Activity/Diet/Wound Care/Special Instructions: Activity as tolerated Diet heart healthy Discharge Disposition: HOME SELF-CARE
[2018-12-06] MEDS ORDERED: WARFARIN 5 MG TAB PO ONE (18:00)
== END 2018-12-06 15:12 | disposition home or self-care (01) | DRG 392 ==
LOC: EC 12:27 → 4MS4W 19:21
PROVIDERS: ADMIT Internal Medicine; ATTEND Internal Medicine
DX: K57.32 Diverticulitis of large intestine without perforation or abscess without bleeding (principal); I48.91 Unspecified atrial fibrillation; D72.829 Elevated white blood cell count, unspecified; E11.9 Type 2 diabetes mellitus without complications; E78.5 Hyperlipidemia, unspecified; I10 Essential (primary) hypertension; R79.1 Abnormal coagulation profile; I25.10 Atherosclerotic heart disease of native coronary artery without angina pectoris; Z79.01 Long term (current) use of anticoagulants; Z79.82 Long term (current) use of aspirin; Z79.84 Long term (current) use of oral hypoglycemic drugs; Z79.899 Other long term (current) drug therapy; Z87.891 Personal history of nicotine dependence; Z82.49 Family history of ischemic heart disease and other diseases of the circulatory system; Z95.5 Presence of coronary angioplasty implant and graft
CPT/HCPCS: 36415; 74177; 80048; 80053; 81003; 82150; 83605; 83690; 85025; 85610; 85730; 87040; 93005; 94660; 96365; 96375; 99285

== ENCOUNTER 2019-08-29 12:42 | Observation (INO) | payer BC ==
--- NOTE | 2019-08-29 13:02 | ED ---
Nausea/Vomiting/Diarrhea HPI - General Chief complaint: Nausea/Vomiting/Diarrhea Stated complaint: nausea, vomiting Time Seen by Provider: 08/29/19 12:42 Source: patient, EMS, RN notes reviewed Mode of arrival: EMS Limitations: no limitations - History of Present Illness Initial comments: this is a 59-year-old male with a history of pancreatitis it is not alcohol induced who states he's had nausea vomiting some abdominal discomfort for the past 2 days he did markedly decrease oral intake pain in the midepigastric area is 8/10 severity he did have a green emesis. He has a history chronic A. fib. He was brought in by EMS. He does feel somewhat better after IV fluids and Zofran that. He was noted have a markedly elevated blood pressure upon arrival likely on the basis of pain and dehydration. No other new factors MD complaint: nausea, vomiting - Related Data Home Medications Medication Instructions Recorded Confirmed glyBURIDE [Glyburide] 2.5 mg PO BID 10/26/15 08/29/19 Apixaban [Eliquis] 5 mg PO BID 08/29/19 08/29/19 Atorvastatin Calcium [Lipitor] 80 mg PO HS 08/29/19 08/29/19 Lisinopril 20 mg PO DAILY 08/29/19 08/29/19 Previous Rx's Medication Instructions Recorded Aspirin EC [Ecotrin Low Dose] 81 mg PO DAILY #30 tablet. 10/29/15 Atenolol [Tenormin] 50 mg PO BID #60 tab 10/29/15 Allergies Allergy/AdvReac Type Severity Reaction Status Date / Time No Known Allergies Allergy Verified 08/29/19 13:45 Review of Systems ROS Statement: Those systems with pertinent positive or pertinent negative responses have been documented in the HPI. ROS Other: All systems not noted in ROS Statement are negative. Past Medical History Past Medical History: Atrial Fibrillation, Diabetes Mellitus, Hyperlipidemia, Hypertension Additional Past Medical History / Comment(s): pancreatitis History of Any Multi-Drug Resistant Organisms: None Reported Past Surgical History: Heart Catheterization With Stent Additional Past Surgical History / Comment(s): teeth surgery Past Anesthesia/Blood Transfusion Reactions: No Reported Reaction Date of Last Stent Placement:: 2015 Past Psychological History: No Psychological Hx Reported Smoking Status: Former smoker Past Alcohol Use History: None Reported Past Drug Use History: Marijuana - Past Family History Father Family Medical History: Myocardial Infarction ([place]) Additional Family Medical History / Comment(s): heart disease General Exam - General Exam Comments Initial Comments: is a well-developed well-nourished awake alert oriented times 3male Limitations: no limitations General appearance: alert, anxious, in distress Head exam: Present: atraumatic, normocephalic, normal inspection Eye exam: Present: normal appearance, PERRL, EOMI. Absent: scleral icterus, conjunctival injection, periorbital swelling ENT exam: Present: mucous membranes dry Neck exam: Present: normal inspection. Absent: tenderness, meningismus, lymphadenopathy Respiratory exam: Present: normal lung sounds bilaterally. Absent: respiratory distress, wheezes, rales, rhonchi, stridor Cardiovascular Exam: Present: regular rate, normal rhythm, normal heart sounds. Absent: systolic murmur, diastolic murmur, rubs, gallop, clicks GI/Abdominal exam: Present: soft, tenderness ( no masses or bruits), normal bowel sounds. Absent: distended, guarding, rebound, rigid Extremities exam: Present: normal inspection, full ROM, normal capillary refill. Absent: tenderness, pedal edema, joint swelling, calf tenderness Back exam: Present: normal inspection Neurological exam: Present: alert, oriented X3, CN II-XII intact Psychiatric exam: Present: normal affect, normal mood Skin exam: Present: warm, dry, intact, normal color. Absent: rash Course Vital Signs 08/29/19 08/29/19 08/29/19 12:46 16:01 16:34 Temperature 97.5 F L Pulse Rate 83 92 89 Respiratory 22 18 18 Rate Blood Pressure 195/143 224/126 153/109 O2 Sat by Pulse 100 100 96 Oximetry 08/29/19 08/29/19 08/29/19 17:17 18:26 19:00 Temperature Pulse Rate 90 81 88 Respiratory 18 18 18 Rate Blood Pressure 157/92 152/109 138/108 O2 Sat by Pulse 97 100 97 Oximetry Medical Decision Making - Medical Decision Making H and does feel somewhat better after the initial presentation and treatment. He will however be admitted for continued IV fluids pain control.the case is discussed with Dr. Xavier - Lab Data Result diagrams: 08/29/19 16:30 08/29/19 16:30 Lab Results 12/18/19 12/18/19 12/18/19 Range/Units 15:10 16:30 16:30 WBC 8.5 (3.8-10.6) k/uL RBC 5.35 (4.30-5.90) m/uL Hgb 17.5 (13.0-17.5) gm/dL Hct 47.3 (39.0-53.0) % MCV 88.5 (80.0-100.0) fL MCH 32.8 (25.0-35.0) pg MCHC 37.0 (31.0-37.0) g/dL RDW 13.8 (11.5-15.5) % Plt Count 292 (150-450) k/uL Neutrophils % 87 % Lymphocytes % 9 % Monocytes % 2 % Eosinophils % 0 % Basophils % 0 % Neutrophils # 7.4 (1.3-7.7) k/uL Lymphocytes # 0.8 L (1.0-4.8) k/uL Monocytes # 0.2 (0-1.0) k/uL Eosinophils # 0.0 (0-0.7) k/uL Basophils # 0.0 (0-0.2) k/uL Sodium 142 (137-145) mmol/L Potassium 4.0 (3.5-5.1) mmol/L Chloride 116 H (98-107) mmol/L Carbon Dioxide 14 L (22-30) mmol/L Anion Gap 12 mmol/L BUN 14 (9-20) mg/dL Creatinine 0.62 L (0.66-1.25) mg/dL Est GFR (CKD-EPI)AfAm >90 (>60 ml/min/1.73 sqM) Est GFR (CKD-EPI)NonAf >90 (>60 ml/min/1.73 sqM) Glucose 191 H (74-99) mg/dL Calcium 9.3 (8.4-10.2) mg/dL Magnesium 1.6 (1.6-2.3) mg/dL Total Bilirubin 0.9 (0.2-1.3) mg/dL AST 36 (17-59) U/L ALT 28 (4-49) U/L Alkaline Phosphatase 103 (38-126) U/L Creatine Kinase 342 H (55-170) U/L Troponin I (0.000-0.034) ng/mL Total Protein 7.9 (6.3-8.2) g/dL Albumin 4.3 (3.5-5.0) g/dL Lipase 99 (23-300) U/L Urine Color Yellow Urine Appearance Clear (Clear) Urine pH 5.5 (5.0-8.0) Ur Specific [place] 1.021 (1.001-1.035) Urine Protein 1+ H (Negative) Urine Glucose (UA) 1+ H (Negative) Urine Ketones 1+ H (Negative) Urine Blood Small H (Negative) Urine Nitrite Negative (Negative) Urine Bilirubin Negative (Negative) Urine Urobilinogen <2.0 (<2.0) mg/dL Ur Leukocyte Esterase Negative (Negative) Urine WBC 1 (0-5) /hpf Hyaline Casts 1 (0-2) /lpf Urine Mucus Rare H (None) /hpf 08/29/19 Range/Units 16:30 WBC (3.8-10.6) k/uL RBC (4.30-5.90) m/uL Hgb (13.0-17.5) gm/dL Hct (39.0-53.0) % MCV (80.0-100.0) fL MCH (25.0-35.0) pg MCHC (31.0-37.0) g/dL RDW (11.5-15.5) % Plt Count (150-450) k/uL Neutrophils % % Lymphocytes % % Monocytes % % Eosinophils % % Basophils % % Neutrophils # (1.3-7.7) k/uL Lymphocytes # (1.0-4.8) k/uL Monocytes # (0-1.0) k/uL Eosinophils # (0-0.7) k/uL Basophils # (0-0.2) k/uL Sodium (137-145) mmol/L Potassium (3.5-5.1) mmol/L Chloride (98-107) mmol/L Carbon Dioxide (22-30) mmol/L Anion Gap mmol/L BUN (9-20) mg/dL Creatinine (0.66-1.25) mg/dL Est GFR (CKD-EPI)AfAm (>60 ml/min/1.73 sqM) Est GFR (CKD-EPI)NonAf (>60 ml/min/1.73 sqM) Glucose (74-99) mg/dL Calcium (8.4-10.2) mg/dL Magnesium (1.6-2.3) mg/dL Total Bilirubin (0.2-1.3) mg/dL AST (17-59) U/L ALT (4-49) U/L Alkaline Phosphatase (38-126) U/L Creatine Kinase (55-170) U/L Troponin I <0.012 (0.000-0.034) ng/mL Total Protein (6.3-8.2) g/dL Albumin (3.5-5.0) g/dL Lipase (23-300) U/L Urine Color Urine Appearance (Clear) Urine pH (5.0-8.0) Ur Specific [place] (1.001-1.035) Urine Protein (Negative) Urine Glucose (UA) (Negative) Urine Ketones (Negative) Urine Blood (Negative) Urine Nitrite (Negative) Urine Bilirubin (Negative) Urine Urobilinogen (<2.0) mg/dL Ur Leukocyte Esterase (Negative) Urine WBC (0-5) /hpf Hyaline Casts (0-2) /lpf Urine Mucus (None) /hpf - Radiology Data Radiology results: report reviewed (I did review the imaging and report no acute findings.), image reviewed Disposition Clinical Impression: Abdominal pain, Nausea & vomiting, Dehydration, History of pancreatitis, Acidosis Disposition: ADMITTED IP TO THIS [facility] Condition: Fair Referrals: Payton Scott MD [Primary Care Provider] - 1-2 days
[2019-08-29] MEDS ORDERED: SODIUM CHLORIDE 0.9% 1,000 ML IV STA ×2 (14:40)
[2019-08-29 15:31] LABS: Appearance,Urine Clear (Clear); Bilirubin,Urine Negative (Negative); Blood,Urine Small (Negative); Color,Urine Yellow; Glucose,Urine (UA) 1+ (Negative); Hyaline Casts,Urine 1 /lpf (0-2); Ketones,Urine 1+ (Negative); Leukocyte Esterase,Urine Negative (Negative); Mucus,Urine Rare /hpf; Nitrite,Urine Negative (Negative); PH, Urine 5.5 (5.0-8.0); Protein,Urine 1+ (Negative); Specific Gravity,Urine 1.021 (1.001-1.035); Urobilinogen,Urine <2.0 mg/dL (<2.0); WBC,Urine 1 /hpf (0-5)
--- NOTE | 2019-08-29 15:40 | XR ---
EXAMINATION TYPE: XR KUB DATE OF EXAM: 08/29/2019 3:31 PM CLINICAL HISTORY: Nausea and vomiting today. Pain. TECHNIQUE: Three Upright KUB images of the abdomen are obtained. COMPARISON: CT abdomen and pelvis December 04, 2018 FINDINGS: Air-fluid level and slightly prominent stomach. Scattered gas is seen in nondistended small and large bowel loops with some paucity. Gas and fecal material seen in nondistended rectum. Bilater al pelvic phleboliths. Multilevel spurring in the thoracolumbar spine. Moderate axial joint space los s and acetabular spurring both hips. Lung bases are clear. IMPRESSION: Overall nonspecific but favor nonobstructive bowel gas pattern.
[2019-08-29] MEDS ORDERED: ONDANSETRON 4 MG/2 ML VIAL IVP STA (15:59)
[2019-08-29] MEDS ORDERED: HYDROmorphone 1 MG/ML 1 ML SYRINGE IVP STA (16:23)
[2019-08-29 16:45] LABS: Basophils % (A) 0 %; Eosinophils % (A) 0 %; HCT 47.3 % (39.0-53.0); HGB 17.5 gm/dL (13.0-17.5); Lymphocytes # (A) 0.8 k/uL (1.0-4.8); Lymphocytes % (A) 9 %; MCH 32.8 pg (25.0-35.0); MCV 88.5 fL (80.0-100.0); Mean Platelet Volume 7.2; Monocytes # (A) 0.2 k/uL (0-1.0); Monocytes % (A) 2 %; Neutrophils # (A) 7.4 k/uL (1.3-7.7); Neutrophils % (A) 87 %; Platelet Count 292 k/uL (150-450); RBC 5.35 m/uL (4.30-5.90); RDW 13.8 % (11.5-15.5); WBC 8.5 k/uL (3.8-10.6)
[2019-08-29 16:51] LABS: ALT 28 U/L (4-49); AST 36 U/L (17-59); African American GFR (CKD) >90 (>60 ml/min/1.73 sqM); Albumin 4.3 g/dL (3.5-5.0); Alkaline Phosphatase 103 U/L (38-126); Anion Gap 12 mmol/L; Blood Urea Nitrogen 14 mg/dL (9-20); Calcium 9.3 mg/dL (8.4-10.2); Carbon Dioxide 14 mmol/L (22-30); Chloride 116 mmol/L (98-107); Creatine Kinase 342 U/L (55-170); Glucose 191 mg/dL (74-99); Magnesium 1.6 mg/dL (1.6-2.3); Non-African American GFR(CKD) >90 (>60 ml/min/1.73 sqM); Sodium 142 mmol/L (137-145); Total Bilirubin 0.9 mg/dL (0.2-1.3); Total Protein 7.9 g/dL (6.3-8.2)
[2019-08-29] MEDS ORDERED: NALOXONE 0.4 MG/ML 1 ML VIAL IV PRN (19:32)
[2019-08-29] MEDS ORDERED: HYDROmorphone 0.5 MG/0.5 ML SYRINGE IVP PRN (19:32)
[2019-08-29] MEDS ORDERED: ONDANSETRON 4 MG/2 ML VIAL IVP PRN (19:32)
[2019-08-29] MEDS: SODIUM CHLORIDE 0.9% 1,000 ML IV SCH (20:00)
[2019-08-29] MEDS ORDERED: ATORVASTATIN 80 MG TAB PO SCH (21:00)
[2019-08-29] MEDS ORDERED: LISINOPRIL 20 MG TAB PO STA (21:40)
--- NOTE | 2019-08-29 22:03 | P.HPIM ---
History of Present Illness H&P Date: 08/29/19 Chief Complaint: refractory nausea vomiting and diarrhea 59-year-old male with history of diabetes mellitus on oral hypoglycemics, chronic A. fib on Eliquis, recent history of diverticulitis Patient comes in today due to refractory nausea vomiting for the past 2 days his symptoms started over the weekend 45 days ago with generalized weakness and malaise denies any sore throat coughing or muscle aches. However over the past 2 days progressed into repeated vomiting consisted of stomach food contents and then just stomach juices. Nonbilious nonbloody. Associated with belly cramps and diarrhea very frequent denies any black stool or bloody stool. Patient denies any fevers but he is having chills every time he throws up. He felt very sick couldn't keep anything down he is not even taking his medications for the past day or 2. Decided come to the hospital today as he was feeling progressively weak and couldn't eat or drink and he was worried that he will get dehydrated. Otherwise he denies any sick contact denies any recent traveling denies any coughing denies any upper respiratory infection like symptoms denies any unsanitary food or drink denies any chest pain or shortness of breath In the ED abdominal x-ray showed nonobstructive gas pattern. Patient initially was reporting epigastric abdominal pain this has resolved now. He described the pain as colicky sharp pain comes and goes 8 out of 10 in severity mainly epigastric nonradiating. He also mentions history of pancreatitis in the past which felt similar this time. His lipase level was normal liver enzymes were normal. Labs showed non-anion gap metabolic acidosis. CBC was normal. Patient admitted for close monitoring and IV fluid hydration and supportive care Review of Systems Pertinent positives as noted in HPI. All other systems were reviewed and are negative Past Medical History Past Medical History: Atrial Fibrillation, Diabetes Mellitus, Hyperlipidemia, Hypertension Additional Past Medical History / Comment(s): pancreatitis, diverticulitis History of Any Multi-Drug Resistant Organisms: None Reported Past Surgical History: Heart Catheterization With Stent Additional Past Surgical History / Comment(s): teeth surgery Past Anesthesia/Blood Transfusion Reactions: No Reported Reaction Date of Last Stent Placement:: 2015 Past Psychological History: No Psychological Hx Reported Smoking Status: Former smoker Past Alcohol Use History: None Reported Past Drug Use History: Marijuana - Past Family History Father Family Medical History: Myocardial Infarction ([place]) Additional Family Medical History / Comment(s): heart disease Medications and Allergies Home Medications Medication Instructions Recorded Confirmed Type glyBURIDE [Glyburide] 2.5 mg PO BID 10/26/15 08/29/19 History Aspirin EC [Ecotrin Low Dose] 81 mg PO DAILY #30 tablet. 10/29/15 08/29/19 Rx Atenolol [Tenormin] 50 mg PO BID #60 tab 10/29/15 08/29/19 Rx Apixaban [Eliquis] 5 mg PO BID 08/29/19 08/29/19 History Atorvastatin Calcium [Lipitor] 80 mg PO HS 08/29/19 08/29/19 History Lisinopril 20 mg PO DAILY 08/29/19 08/29/19 History Allergies Allergy/AdvReac Type Severity Reaction Status Date / Time No Known Allergies Allergy Verified 08/29/19 13:45 Physical Exam Vitals: Vital Signs Temp Pulse Resp BP Pulse Ox 08/29/19 20:00 89 191 H 145/105 98 08/29/19 19:00 88 18 138/108 97 08/29/19 18:26 81 18 152/109 100 08/29/19 17:17 90 18 157/92 97 08/29/19 16:34 89 18 153/109 96 08/29/19 16:01 92 18 224/126 100 08/29/19 12:46 97.5 F L 83 22 195/143 100 Intake and Output 08/29/19 08/29/19 08/29/19 06:59 14:59 22:59 Other: Weight 113.398 kg Constitutional: No acute distress, conversant, pleasant Eyes: Anicteric sclerae, moist conjunctiva, no lid-lag Pupils equal round reactive to light ENMT: NC/AT Oropharynx clear, no erythema, exudates Neck: Supple, FROM, no masses, or JVD No carotid bruits No thyromegaly Lungs: Clear to auscultation Clear to percussion Normal respiratory effort, no accessory muscle use Cardiovascular: Heart regular in rate and rhythm, No murmurs, gallops, or rubs No peripheral edema Abdominal: Soft Nontender, no guarding, rebound or rigidity Abdomen moving with respiration Normoactive bowel sounds No hepatomegaly, No splenomegaly No palpable mass periumbilical hernia reducible Skin: Normal temperature, tone, texture, turgor No induration No subcutaneous nodules No rash, lesions No ulcers Extremities: No digital cyanosis No clubbing Pedal pulses intact and symmetrical Radial pulses intact and symmetrical No calf tenderness Psychiatric: Alert and oriented to person, place and time Appropriate affect fair judgment Neuro Muscles Strength 5/5 in all 4 extremities Sensation to light touch grossly present throughout Cranial nerves II-XII grossly intact No focal sensory deficits Lymphatics: no palpable cervical or supraclavicular , or inguinal lymph nodes Results CBC & Chem 7: 08/29/19 16:30 08/29/19 16:30 Labs: Abnormal Lab Results - Last 24 Hours (Table) 08/29/19 08/29/19 08/29/19 Range/Units 15:10 16:30 16:30 Lymphocytes # 0.8 L (1.0-4.8) k/uL Chloride 116 H (98-107) mmol/L Carbon Dioxide 14 L (22-30) mmol/L Creatinine 0.62 L (0.66-1.25) mg/dL Glucose 191 H (74-99) mg/dL Creatine Kinase 342 H (55-170) U/L Urine Protein 1+ H (Negative) Urine Glucose (UA) 1+ H (Negative) Urine Ketones 1+ H (Negative) Urine Blood Small H (Negative) Urine Mucus Rare H (None) /hpf Assessment and Plan Assessment: 59 year old male with HTN , afib on eliquis, DM, h/o pancreatitis, and recent admission for diverticulitis. comes in today with repeated nausea and vomiting and diarrhea fo 2 days duration. patient felt weak and tired. admitted under observation for monitoring and rehydration with supportive care. anticipated length of stay <2 midnights Plan: hypertensive urgency , 2/2 poor PO intake and inability to take his meds dehydration with refractory nausea and vomiting gastroenteritis none anion gap metabolic acidosis chronic conditions DM, insulin sliding scale chronic afib, on eliquis hyperlipidemia hypertension h/o pancreatitis h/o diverticulitis resume home meds plan aggressive IVF hydration supportive care abd xray showed none obstructive gas pattern if symptoms worsens , or spikes fever , then consider CT abd to rule out recurrence of diverticulitis fiollow up electrolytes and replace as needed resume home meds clear liquid diet , advance as tolerated Preformed a thorough record review from recent hospitalization admitted for diverticulitis treated with antibiotics conservatively CODE STATUS:full code DVT prophylaxis: on Eliquis for A. fib Discussed with: Patient, ER, RN Anticipated length of stay < than [address]: home A total of 60 minutes was spent on the care of this complex patient more than 50% of the time was spent in counseling and care coordination.
[2019-08-29 22:25] LABS: Glucose,Whole Blood 131 mg/dL (75-99)
[2019-08-29] MEDS: INSULIN ASPART (NovoLOG) 100 UNIT/ML VIAL SQ SCH (22:28)
[2019-08-29] MEDS: APIXABAN 5 MG TAB PO SCH (22:31)
[2019-08-29] MEDS: ATENOLOL 50 MG TAB PO SCH (22:32)
[2019-08-30] MEDS: SODIUM CHLORIDE 0.9% 1,000 ML IV SCH ×2 (04:34→07:41)
[2019-08-30 07:24] LABS: Glucose,Whole Blood 128 mg/dL (75-99)
[2019-08-30] MEDS: INSULIN ASPART (NovoLOG) 100 UNIT/ML VIAL SQ SCH ×2 (07:36→12:43)
[2019-08-30] MEDS: APIXABAN 5 MG TAB PO SCH (07:40)
[2019-08-30] MEDS: ATENOLOL 50 MG TAB PO SCH (07:40)
[2019-08-30 07:45] LABS: Basophils # (A) 0.1 k/uL (0-0.2); Basophils % (A) 1 %; Eosinophils # (A) 0.1 k/uL (0-0.7); Eosinophils % (A) 1 %; HCT 49.5 % (39.0-53.0); HGB 16.1 gm/dL (13.0-17.5); Lymphocytes # (A) 1.6 k/uL (1.0-4.8); Lymphocytes % (A) 19 %; MCH 29.1 pg (25.0-35.0); MCHC 32.5 g/dL (31.0-37.0); MCV 89.7 fL (80.0-100.0); Mean Platelet Volume 7.2; Monocytes # (A) 0.7 k/uL (0-1.0); Monocytes % (A) 8 %; Neutrophils % (A) 69 %; Platelet Count 328 k/uL (150-450); RBC 5.51 m/uL (4.30-5.90); RDW 14.2 % (11.5-15.5); WBC 8.6 k/uL (3.8-10.6)
[2019-08-30 07:55] LABS: ALT 24 U/L (4-49); AST 31 U/L (17-59); African American GFR (CKD) >90 (>60 ml/min/1.73 sqM); Albumin 3.6 g/dL (3.5-5.0); Alkaline Phosphatase 73 U/L (38-126); Anion Gap 8 mmol/L; Blood Urea Nitrogen 15 mg/dL (9-20); Calcium 8.7 mg/dL (8.4-10.2); Carbon Dioxide 20 mmol/L (22-30); Chloride 114 mmol/L (98-107); Glucose 112 mg/dL (74-99); Non-African American GFR(CKD) >90 (>60 ml/min/1.73 sqM); Potassium 4.2 mmol/L (3.5-5.1); Sodium 142 mmol/L (137-145); Total Bilirubin 0.8 mg/dL (0.2-1.3); Total Protein 6.7 g/dL (6.3-8.2)
[2019-08-30] MEDS ORDERED: ASPIRIN 81 MG PO SCH (09:00)
[2019-08-30] MEDS ORDERED: PANTOPRAZOLE 40 MG/10 ML VIAL IV SCH (09:00)
[2019-08-30] MEDS ORDERED: LISINOPRIL 20 MG TAB PO SCH (09:00)
[2019-08-30 12:24] LABS: Glucose,Whole Blood 93 mg/dL (75-99)
[2019-08-30 15:24] VITALS: BP 111/72; PULSE 64; RESP 16; TEMP 97.2
[2019-08-30] MEDS ORDERED: DIPHENOX-ATROP 2.5-0.025 MG 1 EACH TAB PO STA (15:42)
--- NOTE | 2019-08-30 18:31 | P.DS ---
Providers Date of admission: 08/29/19 19:32 Expected date of discharge: 08/30/19 Attending physician: Rob Cheek MD Primary care physician: Payton Scott Hospital Course: discharge diagnosis hypertensive urgency dehydration with refractory nausea and vomiting Acute gastroenteritis none anion gap metabolic acidosis chronic A. fib on DOACS Insulin-dependent diabetes Hyperlipidemia hospital course The patient is a 59-year-old maleThat presented with intractable nausea vomiting and diarrhea for 2 days was admitted with dehydration secondary to acute gastroenteritis, patient's lab did not suggest sepsis as he had no leukocytosis reaction remained afebrile throughout his hospitalization. KUB was ordered that showed overall nonspecific bowel gas pattern, the patient was treated with supportive management with antiemetics Zofran, and analgesic therapy with morphine as needed, his lipase and liver enzymes are normal, labs did show non-anion gap metabolic acidosis likely secondary to dehydration. the patient had no known electrolyte abnormalities, C. diff was checked and was negative. With supportive therapies the patient improved and felt like he was ready to go home. He was cleared for discharge with prescriptions for Zofran and Lomotil sent to his pharmacy and discharge. This discharge process took approximately 30 minutes Focused exam Abdomen: soft nontender nondistended normoactive bowel sounds in all 4 quadrants Patient Condition at Discharge: Good Plan - Discharge Summary New Discharge Prescriptions: New Diphenox-Atrop 2.5-0.025 mg [Lomotil] 1 each PO QID PRN #12 tab PRN Reason: Diarrhea Ondansetron HCl [Zofran] 4 mg PO AC-TID PRN #12 tablet PRN Reason: Nausea Continue glyBURIDE [Glyburide] 2.5 mg PO BID Aspirin EC [Ecotrin Low Dose] 81 mg PO DAILY #30 tablet. Atenolol [Tenormin] 50 mg PO BID #60 tab Apixaban [Eliquis] 5 mg PO BID Lisinopril 20 mg PO DAILY Atorvastatin Calcium [Lipitor] 80 mg PO HS Discharge Medication List glyBURIDE [Glyburide] 2.5 mg PO BID 10/26/15 [History] Aspirin EC [Ecotrin Low Dose] 81 mg PO DAILY #30 tablet. 10/29/15 [Rx] Atenolol [Tenormin] 50 mg PO BID #60 tab 10/29/15 [Rx] Apixaban [Eliquis] 5 mg PO BID 12/18/19 [History] Atorvastatin Calcium [Lipitor] 80 mg PO HS 08/29/19 [History] Lisinopril 20 mg PO DAILY 08/29/19 [History] Diphenox-Atrop 2.5-0.025 mg [Lomotil] 1 each PO QID PRN #12 tab 08/30/19 [Rx] Ondansetron HCl [Zofran] 4 mg PO AC-TID PRN #12 tablet 08/30/19 [Rx] Follow up Appointment(s)/Referral(s): Payton Scott MD [Primary Care Provider] - 1-2 days Patient Instructions/Handouts: Dehydration (DC) Discharge Disposition: HOME SELF-CARE
[2019-08-30] MEDS ORDERED: DIPHENOX-ATROP 2.5-0.025 MG 1 EACH TAB PO SCH (22:00)
== END 2019-08-30 16:41 | disposition home or self-care (01) ==
LOC: EC 12:42 → 6NMEDSUR 19:32
PROVIDERS: ADMIT Internal Medicine; ATTEND Internal Medicine
DX: E86.0 Dehydration (principal); E87.2 Acidosis; K52.9 Noninfective gastroenteritis and colitis, unspecified; I48.20 Chronic atrial fibrillation, unspecified; I16.0 Hypertensive urgency; E11.9 Type 2 diabetes mellitus without complications; E78.5 Hyperlipidemia, unspecified; I10 Essential (primary) hypertension; Z79.01 Long term (current) use of anticoagulants; Z79.4 Long term (current) use of insulin; Z79.82 Long term (current) use of aspirin; Z79.899 Other long term (current) drug therapy; Z82.49 Family history of ischemic heart disease and other diseases of the circulatory system; Z87.891 Personal history of nicotine dependence
CPT/HCPCS: 96361 ×3; 96375 ×2; 96374; 99285; 36415; 80053 ×2; 82550; 83690; 83735; 84484; 85025 ×2; 81001; 87324; 74018; G0378 ×2; J2405; J1170; C9113

== ENCOUNTER 2020-01-20 03:38 | Inpatient (IN) | payer BC ==
[2020-01-20 03:46] LABS: Glucose,Whole Blood 231 mg/dL (75-99)
[2020-01-20] MEDS ORDERED: HYDROmorphone 1 MG/ML 1 ML SYRINGE IVP STA ×3 (03:52→06:20)
[2020-01-20] MEDS ORDERED: ONDANSETRON 4 MG/2 ML VIAL IVP STA (03:52)
--- NOTE | 2020-01-20 04:00 | ED ---
Abdominal Pain HPI - General Chief Complaint: Abdominal Pain Stated Complaint: Vomitting Time Seen by Provider: 01/20/20 03:44 Source: patient, EMS Mode of arrival: EMS Limitations: no limitations - History of Present Illness Initial Comments: This patient is a 59-year-old man who presents by ambulance to be evaluated for abdominal pain. He states that it came on between 1 and 2 hours ago. He had been sleeping and it woke him. He indicates the area between the umbilicus and epigastric area. He describes as constant, aching, severe intensity. He has not noted worsening or relieving factors. The patient also has been nauseated and had a number of episodes of vomiting without seeing blood. MD Complaint: abdominal pain Onset/Timin -: hour(s) Location: periumbilical Radiation: none Severity: severe Severity scale (1-10): 8 Quality: aching Consistency: constant Improves With: nothing Worsens With: nothing Associated Symptoms: nausea, vomiting - Related Data Home Medications Medication Instructions Recorded Confirmed glyBURIDE [Glyburide] 2.5 mg PO BID 10/26/15 08/29/19 Apixaban [Eliquis] 5 mg PO BID 08/29/19 08/29/19 Atorvastatin Calcium [Lipitor] 80 mg PO HS 08/29/19 08/29/19 Lisinopril 20 mg PO DAILY 08/29/19 08/29/19 Previous Rx's Medication Instructions Recorded Aspirin EC [Ecotrin Low Dose] 81 mg PO DAILY #30 tablet. 10/29/15 Atenolol [Tenormin] 50 mg PO BID #60 tab 10/29/15 Diphenox-Atrop 2.5-0.025 mg 1 each PO QID PRN #12 tab 08/30/19 [Lomotil] Ondansetron HCl [Zofran] 4 mg PO AC-TID PRN #12 tablet 08/30/19 Allergies Allergy/AdvReac Type Severity Reaction Status Date / Time No Known Allergies Allergy Verified 08/29/19 13:45 Review of Systems ROS Statement: Those systems with pertinent positive or pertinent negative responses have been documented in the HPI. ROS Other: All systems not noted in ROS Statement are negative. Constitutional: Denies: fever, chills Respiratory: Denies: cough, dyspnea Cardiovascular: Denies: chest pain, palpitations, edema, syncope Gastrointestinal: Reports: abdominal pain, nausea, vomiting Genitourinary: Denies: dysuria, hematuria, testicular pain Musculoskeletal: Denies: back pain Skin: Denies: rash Neurological: Denies: headache, weakness Past Medical History Past Medical History: Atrial Fibrillation, Diabetes Mellitus, Hyperlipidemia, Hypertension Additional Past Medical History / Comment(s): pancreatitis, diverticulitis History of Any Multi-Drug Resistant Organisms: None Reported Past Surgical History: Heart Catheterization With Stent Additional Past Surgical History / Comment(s): teeth surgery Past Anesthesia/Blood Transfusion Reactions: No Reported Reaction Date of Last Stent Placement:: 2015 Past Psychological History: No Psychological Hx Reported Smoking Status: Never smoker Past Alcohol Use History: None Reported Past Drug Use History: Marijuana - Past Family History Father Family Medical History: Myocardial Infarction ([place]) Additional Family Medical History / Comment(s): heart disease General Exam Limitations: no limitations General appearance: alert, in no apparent distress Head exam: Present: atraumatic, normocephalic Eye exam: Present: normal appearance. Absent: scleral icterus, conjunctival injection ENT exam: Present: normal oropharynx Neck exam: Present: normal inspection Respiratory exam: Present: normal lung sounds bilaterally. Absent: respiratory distress, wheezes, rales, rhonchi, stridor Cardiovascular Exam: Present: regular rate, normal rhythm, normal heart sounds. Absent: systolic murmur, diastolic murmur, rubs, gallop GI/Abdominal exam: Present: soft, tenderness, hernia (Umbilical hernia). Absent: distended, guarding, rebound, rigid, mass, pulsatile mass Extremities exam: Present: normal inspection, normal capillary refill. Absent: pedal edema, calf tenderness Back exam: Present: normal inspection. Absent: CVA tenderness (R), CVA tenderness (L) Neurological exam: Present: alert Skin exam: Present: warm, dry, intact, normal color. Absent: rash Course Vital Signs 01/20/20 01/20/20 01/20/20 03:43 03:48 04:46 Temperature 97.6 F Pulse Rate 107 H 93 81 Respiratory 24 22 20 Rate Blood Pressure 222/130 186/95 186/118 O2 Sat by Pulse 100 100 98 Oximetry 01/20/20 01/20/20 05:17 06:26 Temperature Pulse Rate 75 83 Respiratory 18 20 Rate Blood Pressure 164/122 182/107 O2 Sat by Pulse 98 98 Oximetry Medical Decision Making - Lab Data Result diagrams: 01/20/20 03:45 01/20/20 03:45 Lab Results 01/20/20 01/20/20 01/20/20 Range/Units 03:44 03:45 03:45 WBC 11.9 H (3.8-10.6) k/uL RBC 5.74 (4.30-5.90) m/uL Hgb 16.9 (13.0-17.5) gm/dL Hct 51.4 (39.0-53.0) % MCV 89.5 (80.0-100.0) fL MCH 29.4 (25.0-35.0) pg MCHC 32.9 (31.0-37.0) g/dL RDW 14.1 (11.5-15.5) % Plt Count 341 (150-450) k/uL Neutrophils % 76 % Lymphocytes % 13 % Monocytes % 4 % Eosinophils % 4 % Basophils % 1 % Neutrophils # 9.0 H (1.3-7.7) k/uL Lymphocytes # 1.5 (1.0-4.8) k/uL Monocytes # 0.5 (0-1.0) k/uL Eosinophils # 0.4 (0-0.7) k/uL Basophils # 0.1 (0-0.2) k/uL Sodium (137-145) mmol/L Potassium (3.5-5.1) mmol/L Chloride (98-107) mmol/L Carbon Dioxide (22-30) mmol/L Anion Gap mmol/L BUN (9-20) mg/dL Creatinine (0.66-1.25) mg/dL Est GFR (CKD-EPI)AfAm (>60 ml/min/1.73 sqM) Est GFR (CKD-EPI)NonAf (>60 ml/min/1.73 sqM) Glucose (74-99) mg/dL POC Glucose (mg/dL) 231 H (75-99) mg/dL POC Glu Recruiter Shellie Mcbride Plasma Lactic Acid Chris (0.7-2.0) mmol/L Calcium (8.4-10.2) mg/dL Total Bilirubin (0.2-1.3) mg/dL AST (17-59) U/L ALT (4-49) U/L Alkaline Phosphatase (38-126) U/L Troponin I (0.000-0.034) ng/mL Total Protein (6.3-8.2) g/dL Albumin (3.5-5.0) g/dL Amylase (30-110) U/L Lipase (23-300) U/L Urine Color Light Yellow Urine Appearance Clear (Clear) Urine pH 5.5 (5.0-8.0) Ur Specific Imperial 1.012 (1.001-1.035) Urine Protein Trace H (Negative) Urine Glucose (UA) 1+ H (Negative) Urine Ketones 1+ H (Negative) Urine Blood Small H (Negative) Urine Nitrite Negative (Negative) Urine Bilirubin Negative (Negative) Urine Urobilinogen <2.0 (<2.0) mg/dL Ur Leukocyte Esterase Negative (Negative) Urine RBC 8 H (0-5) /hpf Urine WBC 1 (0-5) /hpf Urine Mucus Rare H (None) /hpf 01/20/20 01/20/20 01/20/20 Range/Units 03:45 03:45 03:45 WBC (3.8-10.6) k/uL RBC (4.30-5.90) m/uL Hgb (13.0-17.5) gm/dL Hct (39.0-53.0) % MCV (80.0-100.0) fL MCH (25.0-35.0) pg MCHC (31.0-37.0) g/dL RDW (11.5-15.5) % Plt Count (150-450) k/uL Neutrophils % % Lymphocytes % % Monocytes % % Eosinophils % % Basophils % % Neutrophils # (1.3-7.7) k/uL Lymphocytes # (1.0-4.8) k/uL Monocytes # (0-1.0) k/uL Eosinophils # (0-0.7) k/uL Basophils # (0-0.2) k/uL Sodium 141 (137-145) mmol/L Potassium 4.2 (3.5-5.1) mmol/L Chloride 107 (98-107) mmol/L Carbon Dioxide 20 L (22-30) mmol/L Anion Gap 14 mmol/L BUN 17 (9-20) mg/dL Creatinine 0.79 (0.66-1.25) mg/dL Est GFR (CKD-EPI)AfAm >90 (>60 ml/min/1.73 sqM) Est GFR (CKD-EPI)NonAf >90 (>60 ml/min/1.73 sqM) Glucose 202 H (74-99) mg/dL POC Glucose (mg/dL) (75-99) mg/dL POC Glu Recruiter ID Plasma Lactic Acid Chris 5.9 H* (0.7-2.0) mmol/L Calcium 9.2 (8.4-10.2) mg/dL Total Bilirubin 0.7 (0.2-1.3) mg/dL AST 37 (17-59) U/L ALT 31 (4-49) U/L Alkaline Phosphatase 93 (38-126) U/L Troponin I <0.012 (0.000-0.034) ng/mL Total Protein 8.0 (6.3-8.2) g/dL Albumin 4.5 (3.5-5.0) g/dL Amylase 63 (30-110) U/L Lipase 175 (23-300) U/L Urine Color Urine Appearance (Clear) Urine pH (5.0-8.0) Ur Specific [place] (1.001-1.035) Urine Protein (Negative) Urine Glucose (UA) (Negative) Urine Ketones (Negative) Urine Blood (Negative) Urine Nitrite (Negative) Urine Bilirubin (Negative) Urine Urobilinogen (<2.0) mg/dL Ur Leukocyte Esterase (Negative) Urine RBC (0-5) /hpf Urine WBC (0-5) /hpf Urine Mucus (None) /hpf - EKG Data -: EKG Interpreted by Tx EKG shows normal: axis (Rightward axis), intervals (Normal), QRS complexes (Normal), ST-T waves (T inversions in lateral and inferior leads) Rate: tachycardia (101 bpm) Interpretation: other (Atrial fibrillation) Disposition Clinical Impression: Nausea & vomiting, Abdominal pain, Calculus of kidney, HTN (hypertension), Lactic acidosis Disposition: ADMITTED IP TO THIS [facility] Condition: Good Referrals: Payton Scott MD [Primary Care Provider] - 1-2 days
[2020-01-20 04:03] LABS: Basophils # (A) 0.1 k/uL (0-0.2); Basophils % (A) 1 %; Eosinophils # (A) 0.4 k/uL (0-0.7); Eosinophils % (A) 4 %; HCT 51.4 % (39.0-53.0); HGB 16.9 gm/dL (13.0-17.5); Lymphocytes # (A) 1.5 k/uL (1.0-4.8); Lymphocytes % (A) 13 %; MCH 29.4 pg (25.0-35.0); MCHC 32.9 g/dL (31.0-37.0); MCV 89.5 fL (80.0-100.0); Mean Platelet Volume 6.9; Monocytes # (A) 0.5 k/uL (0-1.0); Monocytes % (A) 4 %; Neutrophils % (A) 76 %; Platelet Count 341 k/uL (150-450); RBC 5.74 m/uL (4.30-5.90); RDW 14.1 % (11.5-15.5); WBC 11.9 k/uL (3.8-10.6)
[2020-01-20 04:06] LABS: Appearance,Urine Clear (Clear); Bilirubin,Urine Negative (Negative); Blood,Urine Small (Negative); Color,Urine Light Yellow; Glucose,Urine (UA) 1+ (Negative); Ketones,Urine 1+ (Negative); Leukocyte Esterase,Urine Negative (Negative); Mucus,Urine Rare /hpf; Nitrite,Urine Negative (Negative); PH, Urine 5.5 (5.0-8.0); Protein,Urine Trace (Negative); RBC,Urine 8 /hpf (0-5); Specific Gravity,Urine 1.012 (1.001-1.035); Urobilinogen,Urine <2.0 mg/dL (<2.0); WBC,Urine 1 /hpf (0-5)
[2020-01-20 04:14] LABS: African American GFR (CKD) >90 (>60 ml/min/1.73 sqM); Albumin 4.5 g/dL (3.5-5.0); Amylase 63 U/L (30-110); Anion Gap 14 mmol/L; Calcium 9.2 mg/dL (8.4-10.2); Carbon Dioxide 20 mmol/L (22-30); Chloride 107 mmol/L (98-107); Glucose 202 mg/dL (74-99); Non-African American GFR(CKD) >90 (>60 ml/min/1.73 sqM); Sodium 141 mmol/L (137-145); Total Bilirubin 0.7 mg/dL (0.2-1.3)
[2020-01-20 04:32] LABS: ALT 31 U/L (4-49); AST 37 U/L (17-59); Alkaline Phosphatase 93 U/L (38-126); Blood Urea Nitrogen 17 mg/dL (9-20); Potassium 4.2 mmol/L (3.5-5.1)
--- NOTE | 2020-01-20 04:42 | CT ---
EXAMINATION TYPE: CT angio thor/abd pel aorta DATE OF EXAM: 01/20/2020 COMPARISON: 12/04/2018. 10/26/2015 HISTORY: pain CT DLP: 2224.3 mGycm Automated exposure control for dose reduction was used. CONTRAST: Performed with IV Contrast, patient injected with 100 mL of Isovue 370. There are 3-D post processed images. There is mild atheromatous change in the thoracic aorta. There is no aneurysm or dissection. The asce nding aorta measures 3.8 cm. There are a few mediastinal lymph nodes that measure up to 1 cm. There a re no hilar masses. There is no pericardial effusion. Heart is borderline enlarged. There is no pleur al effusion. There is some linear infiltrate and atelectasis in the lingula left upper lobe. There is no pneumothorax. Liver spleen stomach pancreas gallbladder appear intact. Bile ducts are not dilated. There is no adre nal mass. Kidneys have normal size. There is mild left-sided hydronephrosis. There is 5 mm calculus i n the proximal left ureter. There is 1.5 cm cyst in the interpolar left kidney. There is no retroperi toneal adenopathy. Bladder distends smoothly. There is no inguinal hernia. There is no free fluid in the pelvis. There are multiple sigmoid diverticula. There is minimal fat stranding around the proxima l sigmoid colon. Appendix appears normal. There is umbilical hernia that contains fat. There is no fr ee air. There is no ascites. There is no evidence of a bowel obstruction. Lumbar vertebra have normal alignment. Thoracic vertebra have normal alignment. There is spurring of the endplates. There is no evidence of vertebral compression fracture. The bony pelvis is intact. The re is developmentally small spinal canal involving the lumbar spine with multilevel bony spinal steno sis. Abdominal aorta is intact. There is no aneurysm or dissection. There is patency of the celiac artery and superior mesenteric artery. There is bilateral arterial flow in the renal arteries. There is raimundo rial flow in the iliac and femoral arteries. I see no evidence of hemodynamic stenosis. IMPRESSION: No evidence of arterial aneurysm or dissection. No evidence of pulmonary embolism. Calculus obstructing the left kidney at the proximal left ureter. Colonic diverticulosis with evidence of mild diverticulitis proximal sigmoid colon.
[2020-01-20] MEDS ORDERED: LABETALOL 5 MG/ML VIAL MDV IVP STA (04:50)
[2020-01-20] MEDS ORDERED: APIXABAN 5 MG TAB PO STA (04:53)
[2020-01-20] MEDS ORDERED: KETOROLAC 30 MG/ML 1 ML VIAL IVP STA (05:20)
[2020-01-20] MEDS ORDERED: PROMETHAZINE INJ 25 MG in SODIUM CHLORIDE 0.9% 50 ML IVPB STA (06:20)
[2020-01-20] MEDS ORDERED: TAMSULOSIN 0.4 MG CAP.ER.24H PO STA (06:22)
[2020-01-20] MEDS ORDERED: HYDROmorphone 1 MG/ML 1 ML SYRINGE IVP PRN (06:42)
[2020-01-20] MEDS ORDERED: ONDANSETRON 4 MG/2 ML VIAL IVP PRN (06:42)
[2020-01-20] MEDS ORDERED: NALOXONE 0.4 MG/ML 1 ML VIAL IV PRN (06:42)
[2020-01-20] MEDS ORDERED: ACETAMINOPHEN TAB 325 MG TAB PO PRN (06:42)
[2020-01-20] MEDS ORDERED: LEVOFLOXACIN 750MG-D5W PMX 750 MG in DEXTROSE/WATER 1 150ML.BAG IVPB STA (06:45)
[2020-01-20] MEDS: SODIUM CHLORIDE 0.9% 1,000 ML IV SCH ×3 (06:49→20:06)
[2020-01-20] MEDS ORDERED: ENALAPRILAT 1.25 MG/ML 1 ML VIAL IVP STA ×2 (07:33→08:21)
[2020-01-20] MEDS ORDERED: METOPROLOL SUCCINATE (ER) 50 MG TAB.ER.24H PO STA (09:32)
[2020-01-20] MEDS: LISINOPRIL 20 MG TAB PO SCH ×2 (10:05→10:41)
[2020-01-20] MEDS: FAMOTIDINE 20 MG/2 ML VIAL IV SCH ×2 (10:05→16:57)
[2020-01-20] MEDS: ATENOLOL 50 MG TAB PO SCH ×3 (10:05→20:05)
[2020-01-20] MEDS ORDERED: DILTIAZEM DRIP BOLUS FROM BAG 1 MG SOLN IV ONE (10:07)
[2020-01-20 10:24] LABS: Glucose,Whole Blood 246 mg/dL (75-99)
[2020-01-20 10:26] LABS: Magnesium 1.6 mg/dL (1.6-2.3)
--- NOTE | 2020-01-20 10:29 | P.GSHP ---
History of Present Illness H&P Date: 01/20/20 Chief Complaint: Abdominal pain secondary to left ureteral calculus The patient is a 59-year-old male who developed the abrupt onset of mid abdominal pain associated with nausea and vomiting early this morning. He rated his pain as an 8 out of 10. He came to the emergency room where he was evaluated. He was noted to have a white blood count of 11,300. BUN/creatinine were 17/0.79. Urinalysis showed 8 red cells and 1 white blood cell/hpf. Lactic acid was 5.9. There was initially some concern in regard to a ruptured aneurysm due to the severity of the pain and for that reason a thoracal abdominal CT scan was obtained. This identified a 5 x 8 mm bilobed calculus in the proximal left ureter with mild to moderate hydronephrosis. No other significant abnormality was noted. He also had hypertension and atrial fibrillation with tachycardia. The patient's pain persisted and it was elected to admit him for further evaluation. Since that time he says his pain has decreased and he now rates it as a 3-5 out of 10. He is still nauseated. The patient says that he was told he had a kidney stone several years ago. CT scan of the abdomen and pelvis with IV contrast on 12/04/2018 performed with IV contrast showed a 3 x 5 mm nonobstructive calculus in a left mid pole calyx. The patient has never actually passed a stone. There is no known family history of urolithiasis. He says he did have some left flank pain last week. The patient has no history of urinary tract infection or gross hematuria. He says he usually voids every 4 hours during the day and twice at night. - Constitutional Constitutional: Reports anorexia, Denies chills, Denies fever - Cardiovascular Cardiovascular: Reports high blood pressure, Reports irregular heart beat, Reports rapid heart beat, Denies chest pain, Denies edema, Denies leg edema, Denies shortness of breath - Respiratory Respiratory: Denies cough, Denies wheezing - Gastrointestinal Gastrointestinal: Reports as per HPI, Denies constipation, Denies heartburn - Genitourinary (Male) Genitourinary: Reports as per HPI Past Medical History Past Medical History: Atrial Fibrillation, Diabetes Mellitus, Hyperlipidemia, Hypertension Additional Past Medical History / Comment(s): pancreatitis, diverticulitis History of Any Multi-Drug Resistant Organisms: None Reported Past Surgical History: Heart Catheterization With Stent (around 2026) Additional Past Surgical History / Comment(s): teeth surgery Past Anesthesia/Blood Transfusion Reactions: No Reported Reaction Date of Last Stent Placement:: 2015 Past Psychological History: No Psychological Hx Reported Smoking Status: Former smoker (smoked 10-15 years and quit 20 years ago) Past Alcohol Use History: None Reported Past Drug Use History: Marijuana - Past Family History Father Family Medical History: Coronary Artery Disease (CAD), Diabetes Mellitus, Myocardial Infarction ([place]) Additional Family Medical History / Comment(s): heart disease Medications and Allergies Home Medications Medication Instructions Recorded Confirmed Type glyBURIDE [Glyburide] 2.5 mg PO BID 10/26/15 01/20/20 History Aspirin EC [Ecotrin Low Dose] 81 mg PO DAILY #30 tablet. 10/29/15 01/20/20 Rx Atenolol [Tenormin] 50 mg PO BID #60 tab 10/29/15 01/20/20 Rx Apixaban [Eliquis] 5 mg PO BID 08/29/19 01/20/20 History Lisinopril 20 mg PO DAILY 08/29/19 01/20/20 History Allergies Allergy/AdvReac Type Severity Reaction Status Date / Time No Known Allergies Allergy Verified 01/20/20 08:23 Surgical - Exam Vital Signs Temp Pulse Resp BP Pulse Ox 97.6 F 107 H 24 222/130 100 01/20/20 03:43 01/20/20 03:43 01/20/20 03:43 01/20/20 03:43 01/20/20 03:43 - General well developed, well nourished, moderate distress, obese - ENT no hearing loss - Neck no masses, no bruits, no lymphadectomy - Respiratory normal expansion, normal respiratory effort - Cardiovascular Rhythm: irregularly irregular Abnormal Heart Sounds: no systolic murmur, no diastolic murmur - Abdomen Abdomen: soft, no organomegaly Hernia: no inguinal, umbilical - Genitourinary normal penis with no external lesions, testicles non-tender Results - Labs 01/20/20 03:45 01/20/20 03:45 Abnormal Lab Results - Last 24 Hours (Table) 01/20/20 01/20/20 01/20/20 Range/Units 03:44 03:45 03:45 WBC 11.9 H (3.8-10.6) k/uL Neutrophils # 9.0 H (1.3-7.7) k/uL Carbon Dioxide (22-30) mmol/L Glucose (74-99) mg/dL POC Glucose (mg/dL) 231 H (75-99) mg/dL Plasma Lactic Acid Chris (0.7-2.0) mmol/L Urine Protein Trace H (Negative) Urine Glucose (UA) 1+ H (Negative) Urine Ketones 1+ H (Negative) Urine Blood Small H (Negative) Urine RBC 8 H (0-5) /hpf Urine Mucus Rare H (None) /hpf 01/20/20 01/20/20 01/20/20 Range/Units 03:45 03:45 07:12 WBC (3.8-10.6) k/uL Neutrophils # (1.3-7.7) k/uL Carbon Dioxide 20 L (22-30) mmol/L Glucose 202 H (74-99) mg/dL POC Glucose (mg/dL) (75-99) mg/dL Plasma Lactic Acid Chris 5.9 H* 3.9 H* (0.7-2.0) mmol/L Urine Protein (Negative) Urine Glucose (UA) (Negative) Urine Ketones (Negative) Urine Blood (Negative) Urine RBC (0-5) /hpf Urine Mucus (None) /hpf Diabetes panel 01/20/20 Range/Units 03:45 Sodium 141 (137-145) mmol/L Potassium 4.2 (3.5-5.1) mmol/L Chloride 107 (98-107) mmol/L Carbon Dioxide 20 L (22-30) mmol/L BUN 17 (9-20) mg/dL Creatinine 0.79 (0.66-1.25) mg/dL Glucose 202 H (74-99) mg/dL Calcium 9.2 (8.4-10.2) mg/dL AST 37 (17-59) U/L ALT 31 (4-49) U/L Alkaline Phosphatase 93 (38-126) U/L Total Protein 8.0 (6.3-8.2) g/dL Albumin 4.5 (3.5-5.0) g/dL Calcium panel 01/20/20 Range/Units 03:45 Calcium 9.2 (8.4-10.2) mg/dL Albumin 4.5 (3.5-5.0) g/dL Pituitary panel 01/20/20 Range/Units 03:45 Sodium 141 (137-145) mmol/L Potassium 4.2 (3.5-5.1) mmol/L Chloride 107 (98-107) mmol/L Carbon Dioxide 20 L (22-30) mmol/L BUN 17 (9-20) mg/dL Creatinine 0.79 (0.66-1.25) mg/dL Glucose 202 H (74-99) mg/dL Calcium 9.2 (8.4-10.2) mg/dL Adrenal panel 01/20/20 Range/Units 03:45 Sodium 141 (137-145) mmol/L Potassium 4.2 (3.5-5.1) mmol/L Chloride 107 (98-107) mmol/L Carbon Dioxide 20 L (22-30) mmol/L BUN 17 (9-20) mg/dL Creatinine 0.79 (0.66-1.25) mg/dL Glucose 202 H (74-99) mg/dL Calcium 9.2 (8.4-10.2) mg/dL Total Bilirubin 0.7 (0.2-1.3) mg/dL AST 37 (17-59) U/L ALT 31 (4-49) U/L Alkaline Phosphatase 93 (38-126) U/L Total Protein 8.0 (6.3-8.2) g/dL Albumin 4.5 (3.5-5.0) g/dL Assessment and Plan (1) Hydronephrosis with urinary obstruction due to ureteral calculus Narrative/Plan: The patient's abdominal pain appears to be related to a 5 x 8 mm bilobed calc ulus in the proximal left ureter which is producing hydronephrosis. A similar shaped calculus was present in the left kidney on a CT scan in 11/2018. The patient's pain has improved since he was in the emergency room. I discussed options including further observation with the use of tamsulosin, ESWL or ureteroscopy with lithotripsy. Due to the patient's obesity ESWL may not be the optimal treatment. For the time being the patient will be started on tamsulosin. He will be seen by cardiology due to his history of coronary artery disease and atrial fibrillation. His tachycardia and hypertension noted in the emergency room may have been related to his abdominal pain. The patient has a history of diabetes but says that he ran out of his Glyburide 3 weeks ago and was unable to have his prescription refilled. He will be continued on Eliquis for the time being. Current Visit: Yes Status: Acute Code(s): N13.2 - HYDRONEPHROSIS WITH RENAL AND URETERAL CALCULOUS OBSTRUCTION SNOMED Code(s): 471041000
--- NOTE | 2020-01-20 10:42 | CONS ---
CONSULTATION Mr. Castorena is a 59-year-old male who presented with symptoms of abdominal discomfort and was diagnosed with ureteral calculus. Cardiology consultation was requested because of the episode of atrial fibrillation. The patient has a known history of coronary artery disease status post percutaneous revascularization of his LAD in 2016. At that time, he had a totally occluded OM and right coronary artery, attempt to recanalize the obtuse marginal branch were unsuccessful. The patient has also history of chronic atrial fibrillation, hypertension, and diabetes mellitus. His breathing has been stable. He has some dyspnea on exertion. No chest pain. He denies any dizziness or palpitation. No syncope. He ran out of his medication depending on his story from a few days to week. The patient denies any other changes. He denies any fever or cough. He has no PND, orthopnea, or peripheral edema. MEDICATION: At home included glabrata 2.5 mg twice a day, lisinopril 20 mg daily, atenolol 50 mg twice a day, aspirin 81 mg daily, and Eliquis 5 mg twice a day. REVIEW OF SYSTEMS: The patient had dyspnea on exertion. No recent wheezing or cough. GI system: No recent GI bleeding. No peptic ulcer disease. system: He had the known renal stone with calculus in the ureter on the left side today. No clear hematuria. NERVOUS SYSTEM: No history of stroke or seizure. SOCIAL HISTORY: He denies any alcohol intake. He drinks decaffeinated beverages and smokes marijuana on a daily basis. PHYSICAL EXAMINATION: 59-year-old male, appears older than stated age, in moderate discomfort. Blood pressure running in the 140s and 160s over 100 with a heart rate in the 90s to 140. HEAD: Normocephalic. EYES: Sclerae anicteric. NECK: Good carotid upstroke. No bruit. No jugular venous distention. LUNGS: No wheezes or rales. Clear. HEART irregularly irregular, tachycardic, S1, S2. No S3. No rub. ABDOMEN: Soft, obese. Positive bowel sounds. No organomegaly. EXTREMITIES: No edema. Intact distal pulses. LAB DATA: Lab data revealed a troponin less than 0.012. BUN and creatinine 17 and 0.79. Hemoglobin of 16.9, white blood cell of 11.9. EKG revealed atrial fibrillation with intraventricular conduction delay and right axis deviation, nonspecific ST-T wave changes. His thoracic aortic CT revealed no evidence of aneurysm with calculus obstructive left kidney at the proximal left ureter with evidence of colonic diverticulosis. IMPRESSION: 1. Atrial fibrillation with rapid ventricular response, could be worsened by the pain in addition to the fact that the patient has not been taking his medication. 2. History of coronary artery disease status post percutaneous revascularization. 3. Left ureter calculus. 4. History of hypertension. 5. Diabetes mellitus. RECOMMENDATIONS: I will re-initiate the beta yessica as well as the SAURAV inhibitor. I will obtain echocardiogram with Doppler. Patient will be continued on anticoagulation. If his heart rate does not improve, then I will add IV Cardizem. Depending on his progress, further recommendations will be made. Thank you for this consult. We will follow with you. CARLOS / IJN: [id number] /
[2020-01-20] MEDS: DILTIAZEM 125 MG in SODIUM CHLORIDE 0.9% 100 ML IV SCH ×2 (10:43→18:26)
[2020-01-20 11:33] LABS: Glucose,Whole Blood 294 mg/dL (75-99)
[2020-01-20] MEDS ORDERED: Magnesium Replacement Protocol 1 EACH MISC MISCELLANE PRN (11:46)
[2020-01-20] MEDS: MAGNESIUM SULFATE-D5W PMX 1 GM in DEXTROSE/WATER 1 100ML.BAG IVPB SCH ×2 (11:54→14:40)
[2020-01-20] MEDS: INSULIN ASPART (NovoLOG) 100 UNIT/ML VIAL SQ SCH ×3 (11:54→20:05)
[2020-01-20] MEDS ORDERED: AMPICILLIN-SULBACTAM 1.5 GM in SODIUM CHLORIDE 0.9% 50 ML IVPB SCH (14:45)
--- NOTE | 2020-01-20 16:07 | P.CONS ---
History of Present Illness - Reason for Consult Consult date: 01/20/20 - Chief Complaint Medical management - History of Present Illness This is a pleasant 59-year-old male with a past medical history of A. fib, nephrolithiasis, diabetes mellitus, hypertension, hyperlipidemia, CAD with PTCA x 1, and systolic CHF who presents to [facility] with sudden onset abdominal pain, nausea, and vomiting morning before admission. CT of the abdomen revealed a 5 x 8 mm bilobed calculus in the proximal left ureter with mild to moderate hydronephrosis. During hospital stay patient's A. fib became uncontrolled and he was placed on a Cardizem drip by cardiology. Patient was given Levaquin this morning secondary to concern for urosepsis. Patient's lactic acid is 5.0. Levaquin will be changed to Unasyn. Abdominal pain has improved with pain medications. Due to the patient's obesity ESWL was decided not to be optimal treatment. Patient will be treated with tamsulosin by urology. Patient denies chest pain,shortness of breath, fevers and chills. Wes hale's nausea and vomiting have improved. Per patient he is supposed be taking glyburide, however, he ran out 3 weeks ago and hasn't had it refilled. Patient is currently on a sliding scale. Review of Systems A 12 point review of systems was assessed patient was only positive for those pertinent in HPI Past Medical History Past Medical History: Atrial Fibrillation, Coronary Artery Disease (CAD), Heart Failure, Diabetes Mellitus, Hyperlipidemia, Hypertension Additional Past Medical History / Comment(s): pancreatitis, diverticulitis, systolic heart failure History of Any Multi-Drug Resistant Organisms: None Reported Past Surgical History: Heart Catheterization With Stent (around 2026) Additional Past Surgical History / Comment(s): teeth surgery Past Anesthesia/Blood Transfusion Reactions: No Reported Reaction Date of Last Stent Placement:: 2015 Past Psychological History: No Psychological Hx Reported Smoking Status: Former smoker (smoked 10-15 years and quit 20 years ago) Past Alcohol Use History: None Reported Past Drug Use History: Marijuana - Past Family History Father Family Medical History: Coronary Artery Disease (CAD), Diabetes Mellitus, Myocardial Infarction (MA) Additional Family Medical History / Comment(s): heart disease Medications and Allergies Home Medications Medication Instructions Recorded Confirmed Type glyBURIDE [Glyburide] 2.5 mg PO BID 10/26/15 01/20/20 History Aspirin EC [Ecotrin Low Dose] 81 mg PO DAILY #30 tablet. 10/29/15 01/20/20 Rx Atenolol [Tenormin] 50 mg PO BID #60 tab 10/29/15 01/20/20 Rx Apixaban [Eliquis] 5 mg PO BID 08/29/19 01/20/20 History Lisinopril 20 mg PO DAILY 08/29/19 01/20/20 History Allergies Allergy/AdvReac Type Severity Reaction Status Date / Time No Known Allergies Allergy Verified 01/20/20 08:23 Physical Exam Osteopathic Statement: *. No significant issues noted on an osteopathic structural exam other than those noted in the History and Physical/Consult. Vitals: Vital Signs Temp Pulse Pulse Resp BP BP Pulse Ox 01/20/20 15:00 75 13 150/89 99 01/20/20 14:30 75 10 L 104/78 100 01/20/20 14:00 69 13 120/80 97 01/20/20 13:30 68 13 123/84 01/20/20 13:00 64 13 134/82 96 01/20/20 12:30 67 14 118/82 01/20/20 12:00 97.5 F L 75 13 132/76 96 01/20/20 11:30 80 10 L 169/117 98 01/20/20 11:00 78 12 177/137 99 01/20/20 10:30 165 H 21 172/125 99 01/20/20 10:11 154 H 17 172/125 97 01/20/20 08:55 97.0 F L 137 H 20 191/143 99 01/20/20 08:22 93 18 149/100 98 01/20/20 07:39 81 18 200/121 99 01/20/20 06:26 83 20 182/107 98 01/20/20 05:17 75 18 164/122 98 01/20/20 04:46 81 20 186/118 98 01/20/20 03:48 93 22 186/95 100 01/20/20 03:43 97.6 F 107 H 24 222/130 100 Intake and Output 01/20/20 01/20/20 01/20/20 06:59 14:59 22:59 Intake Total 980 380 Output Total 700 600 Balance 280 -220 Intake: Intake, IV Titration 980 380 Amount Ampicillin-Sulbactam 1.5 50 gm In Sodium Chloride 0.9 % 50 ml @ 100 mls/hr IVPB Q6HR [facility] Rx#:[id number] Levofloxacin 750Mg-D5w 230 Pmx 750 mg In Dextrose/ Water 1 150ml.bag @ 100 mls/hr IVPB ONCE [facility] Rx#: [id number] Magnesium Sulfate-D5w Pmx 100 200 1 gm In Dextrose/Water 1 100ml.bag @ 100 mls/hr IVPB Q1H [facility] Rx#: [id number] Sodium Chloride 0.9% 1, 650 130 000 ml @ 130 mls/hr IV . Q7H42M [facility] Rx#:[id number] Output: Urine 700 600 Other: Voiding Method Urinal Urinal # Bowel Movements 1 Weight 113.398 kg 113.398 kg General: [non toxic], [no distress], [appears at stated age] Morbid obesity Derm: [warm], [dry] Head: [atraumatic], [normocephalic], [symmetric] Eyes: [EOMI], [no lid lag], [anicteric sclera] Mouth: [no lip lesion], [mucus membranes moist] Cardiovascular: [irreg], [no murmur], [positive posterior tibial pulse bilateral], Lungs: [CTA bilateral], [no rhonchi, no rales] , [no accessory muscle use] Abdominal: [soft], [ nontender to palpation], [no guarding], [no appreciable organomegaly] Ext: [no gross muscle atrophy], [no edema], [no contractures] Neuro: [ CN II-XI grossly intact], [no focal neuro deficits] Psych: [Alert], [oriented], [appropriate affect] Results CBC & Chem 7: 01/20/20 03:45 01/20/20 03:45 Labs: Abnormal Lab Results - Last 24 Hours (Table) 01/20/20 01/20/20 01/20/20 Range/Units 03:44 03:45 03:45 WBC 11.9 H (3.8-10.6) k/uL Neutrophils # 9.0 H (1.3-7.7) k/uL Carbon Dioxide (22-30) mmol/L Glucose (74-99) mg/dL POC Glucose (mg/dL) 231 H (75-99) mg/dL Plasma Lactic Acid Chris (0.7-2.0) mmol/L Urine Protein Trace H (Negative) Urine Glucose (UA) 1+ H (Negative) Urine Ketones 1+ H (Negative) Urine Blood Small H (Negative) Urine RBC 8 H (0-5) /hpf Urine Mucus Rare H (None) /hpf 01/20/20 01/20/20 01/20/20 Range/Units 03:45 03:45 07:12 WBC (3.8-10.6) k/uL Neutrophils # (1.3-7.7) k/uL Carbon Dioxide 20 L (22-30) mmol/L Glucose 202 H (74-99) mg/dL POC Glucose (mg/dL) (75-99) mg/dL Plasma Lactic Acid Chris 5.9 H* 3.9 H* (0.7-2.0) mmol/L Urine Protein (Negative) Urine Glucose (UA) (Negative) Urine Ketones (Negative) Urine Blood (Negative) Urine RBC (0-5) /hpf Urine Mucus (None) /hpf 01/20/20 01/20/20 01/20/20 Range/Units 10:22 10:57 11:31 WBC (3.8-10.6) k/uL Neutrophils # (1.3-7.7) k/uL Carbon Dioxide (22-30) mmol/L Glucose (74-99) mg/dL POC Glucose (mg/dL) 246 H 294 H (75-99) mg/dL Plasma Lactic Acid Chris 5.4 H* (0.7-2.0) mmol/L Urine Protein (Negative) Urine Glucose (UA) (Negative) Urine Ketones (Negative) Urine Blood (Negative) Urine RBC (0-5) /hpf Urine Mucus (None) /hpf 01/20/20 Range/Units 15:03 WBC (3.8-10.6) k/uL Neutrophils # (1.3-7.7) k/uL Carbon Dioxide (22-30) mmol/L Glucose (74-99) mg/dL POC Glucose (mg/dL) (75-99) mg/dL Plasma Lactic Acid Chris 5.0 H* (0.7-2.0) mmol/L Urine Protein (Negative) Urine Glucose (UA) (Negative) Urine Ketones (Negative) Urine Blood (Negative) Urine RBC (0-5) /hpf Urine Mucus (None) /hpf Assessment and Plan Assessment: Leukocytosis with lactic acidosis secondary to urosepsis -Unasyn IV piggyback added -Cultures ordered -IV hydration -Monitor white blood cell count and lactic acid A. fib with RVR -Management by cardiology -Patient is currently on a Cardizem drip -Eliquis for anticoagulation Type 2 diabetes mellitus with uncontrolled blood sugars -Check hemoglobin A1c -Insulin sliding scale -Hold glyburide Abdominal pain secondary to 5 x 8 mm bilobed calculus in the proximal left ureter with hydronephrosis -Currently managed by urology -Flomax Chronic conditions: Hypertension, hyperlipidemia, CAD with PTCA x1, CHF, morbid obesity GI DVT prophylaxis A.m. labs Thank you for this consult. Greater than 30 minutes spent coordinating care. Time with Patient: Greater than 30
[2020-01-20 16:46] LABS: Glucose,Whole Blood 177 mg/dL (75-99)
[2020-01-20 20:02] LABS: Glucose,Whole Blood 147 mg/dL (75-99)
[2020-01-20] MEDS: APIXABAN 5 MG TAB PO SCH (20:05)
[2020-01-21 04:39] LABS: Basophils % (A) 0 %; Eosinophils # (A) 0.2 k/uL (0-0.7); Eosinophils % (A) 2 %; HCT 43.3 % (39.0-53.0); HGB 14.2 gm/dL (13.0-17.5); Lymphocytes # (A) 2.1 k/uL (1.0-4.8); Lymphocytes % (A) 15 %; MCH 29.6 pg (25.0-35.0); MCHC 32.9 g/dL (31.0-37.0); Mean Platelet Volume 7.3; Monocytes # (A) 0.7 k/uL (0-1.0); Monocytes % (A) 5 %; Neutrophils # (A) 10.3 k/uL (1.3-7.7); Neutrophils % (A) 76 %; Platelet Count 371 k/uL (150-450); RBC 4.81 m/uL (4.30-5.90); RDW 14.8 % (11.5-15.5); WBC 13.6 k/uL (3.8-10.6)
[2020-01-21 04:51] LABS: Potassium 4.1 mmol/L (3.5-5.1)
[2020-01-21 04:52] LABS: ALT 22 U/L (4-49); AST 22 U/L (17-59); African American GFR (CKD) >90 (>60 ml/min/1.73 sqM); Albumin 3.4 g/dL (3.5-5.0); Alkaline Phosphatase 64 U/L (38-126); Anion Gap 8 mmol/L; Blood Urea Nitrogen 20 mg/dL (9-20); Calcium 8.1 mg/dL (8.4-10.2); Carbon Dioxide 21 mmol/L (22-30); Chloride 108 mmol/L (98-107); Glucose 128 mg/dL (74-99); Magnesium 1.9 mg/dL (1.6-2.3); Non-African American GFR(CKD) >90 (>60 ml/min/1.73 sqM); Sodium 137 mmol/L (137-145); Total Bilirubin 0.3 mg/dL (0.2-1.3); Total Protein 6.2 g/dL (6.3-8.2)
[2020-01-21 06:43] LABS: Glucose,Whole Blood 132 mg/dL (75-99)
[2020-01-21] MEDS: INSULIN ASPART (NovoLOG) 100 UNIT/ML VIAL SQ SCH ×4 (07:49→20:00)
[2020-01-21] MEDS ORDERED: AMPICILLIN-SULBACTAM 3 GM in SODIUM CHLORIDE 0.9% 100 ML IVPB SCH (08:00)
[2020-01-21] MEDS: FAMOTIDINE 20 MG/2 ML VIAL IV SCH ×2 (08:27→19:03)
[2020-01-21] MEDS: LISINOPRIL 20 MG TAB PO SCH (08:28)
[2020-01-21] MEDS: ATORVASTATIN 40 MG TAB PO SCH (08:28)
[2020-01-21] MEDS: APIXABAN 5 MG TAB PO SCH ×2 (08:28→20:00)
[2020-01-21] MEDS: ATENOLOL 50 MG TAB PO SCH ×2 (08:28→20:00)
[2020-01-21] MEDS: TAMSULOSIN 0.4 MG CAP.ER.24H PO SCH (08:28)
--- NOTE | 2020-01-21 10:36 | P.PN ---
Progress Note - Text Progress Note Date: 01/21/20 Mr. Castorena is asymptomatic. Specifically, he denies flank pain, nausea, and vomiting. He is afebrile with stable vital signs. Urinalysis showed no evidence of infection. A urine culture is pending. The WBC count today is 13.6; the lactic acid level has normalized. Leukocytosis is frequently seen in cases of renal colic, in the absence of infection, and I question the need for IV antibiotics. He was undergoing a 2-D echocardiogram when I saw him this morning. I would recommend continued conservative therapy as long as he remains asymptomatic.
--- NOTE | 2020-01-21 11:38 | ECHOF ---
Referral Reason:cad MEASUREMENTS -------- HEIGHT: 180.3 cm WEIGHT: 112.5 kg BP: 97/71 RVIDd: 3.3 cm (< 3.3) IVSd: 1.4 cm (0.6 - 1.1) LVIDd: 4.9 cm (3.9 - 5.3) LVPWd: 1.4 cm (0.6 - 1.1) IVSs: 1.9 cm LVIDs: 3.5 cm LVPWs: 1.8 cm LAESV Index (A-L): 46.87 ml/m Ao Diam: 3.5 cm (2.0 - 3.7) AV Cusp: 1.9 cm (1.5 - 2.6) LA Diam: 4.2 cm (2.7 - 3.8) MV EXCURSION: 23.080 mm (> 18.000) MV EF SLOPE: 192 mm/s (70 - 150) EPSS: 0.9 cm MV E Nic: 1.30 m/s MV DecT: 234 ms MV A Nic: 0.54 m/s MV E/A Ratio: 2.39 RAP: 5.00 mmHg RVSP: 9.27 mmHg FINDINGS -------- Sinus rhythm. This was a technically difficult study with suboptimal views. The left ventricular size is normal. There is moderate concentric left ventricular hypertrophy. O verall left ventricular systolic function is normal with, an EF between 55 - 60 %. Normal LAP Grade 1 Diastolic Dysfunction. The right ventricle is mildly enlarged. LA is severely dilated >40 ml/m2 The right atrial size is normal. Lumason used The aortic valve is trileaflet and appears structurally normal. The mitral valve is normal. Mild mitral regurgitation is present. The tricuspid valve appears structurally normal. Trace tricuspid regurgitation present. Right bernadette tricular systolic pressure is normal at < 35 mmHg. There is no pulmonic regurgitation present. The aortic root size is normal. IVC Not well visulized. There is no pericardial effusion. CONCLUSIONS -------- 1. Sinus rhythm. 2. This was a technically difficult study with suboptimal views. 3. The left ventricular size is normal. 4. There is moderate concentric left ventricular hypertrophy. 5. Overall left ventricular systolic function is normal with, an EF between 55 - 60 %. 6. Normal LAP Grade 1 Diastolic Dysfunction. 7. The right ventricle is mildly enlarged. 8. LA is severely dilated >40 ml/m2 9. The right atrial size is normal. 10. Lumason used 11. The aortic valve is trileaflet and appears structurally normal. 12. The mitral valve is normal. 13. Mild mitral regurgitation is present. 14. The tricuspid valve appears structurally normal. 15. Trace tricuspid regurgitation present. 16. Right ventricular systolic pressure is normal at < 35 mmHg. 17. There is no pulmonic regurgitation present. 18. The aortic root size is normal. 19. IVC Not well visulized. 20. There is no pericardial effusion. CLOTHING EXAMINER: Sherie Proctor RDCS
[2020-01-21 11:58] LABS: Hemoglobin A1C 6.9 % (4.0-6.0)
[2020-01-21 12:05] LABS: Glucose,Whole Blood 143 mg/dL (75-99)
[2020-01-21] MEDS: DILTIAZEM 125 MG in SODIUM CHLORIDE 0.9% 100 ML IV SCH (12:11)
--- NOTE | 2020-01-21 13:37 | CDI ---
Documentation Clarification Form Date: 01/21/2020 01:15:39 PM From: Sandy Cummings RN CCDS Admit Date: 01/20/2020 06:42:00 AM Patient Name: Rian Castorena Visit Number: [id number] Discharge Date: ATTENTION: The Clinical Documentation Specialists (CDI) and [facility] Coding Staff appreciate your assistance in clarifying documentation. Please respond to the clarification below the line at the bottom and electronically sign. The CDI & [facility] Coding staff will review the response and follow-up if needed. Please note: Queries are made part of the Legal Health Record. If you have any questions, please contact the author of this message via ITS. Dr. Robbin Hayward Leukocytosis with lactic acidosis secondary to urosepsis. History/Risk Factors: 59-year-old male presents to the ED for nausea, vomiting and abdominal pain. Medical History Atrial Fib, CAD, Heart Failure, DM, HLD, HTN Clinical Indicators: 01/19 WBC: 11.9 01/19 Lactic acid: 5.9 01/19 UA: Urine protein trace, ketones 1+, Rbc 8, Wbc 1, Urine Culture Pending. 01/19 Vital signs on admission: 222/130 107 97.9 24 100% ra Other Clinical Indicators: Treatment: Antibiotics:01/19 Ampicillin Ivpb x1, 01/20 Ampicillin Ivpb Q 8hrs d/cd IV Fluids: 01/19 0.9ns 75cc/hr In your professional opinion, please clarify if these findings signify one of the following conditions, whether the condition is POA, and cause, if known: Sepsis Ruled out Sepsis Poa (secondary to please specify) Other, please specify Unable to determine SIRS Criteria (2 or more of the following may indicate SIRS): -Temperature < 96.8F (36C) or > 101.0F (38.3C) -Heart Rate > 90 bpm -Respiratory Rate > 20 breaths/min or PaCO2 < 32 mmHg -White Blood Cell Count > 12,000 or < 4,000 cells/mm3 or > 10% bands -Lactate >2.0 mmol/L (>4.0 is equivalent to septic shock) Documented in Medical Mgt Progress note Sepsis Ruled Out by Dr Zacarias (Last Revision: December 2017) MTDD
--- NOTE | 2020-01-21 14:45 | P.PN ---
Subjective Progress Note Date: 01/21/20 (delayed charting seen at 1205) Principal diagnosis: abdominal pain Patient is a 59 yo male with diabetes controlled on oral medications, A fib on anticoagulation with A fib, HTN and HLD who presented with abdominal pain. He was diagnosed with Renal colic due to left sided ureteral calculus. He went into A fib and need a cardizem gtt for a short while and then was rate controlled on his oral medications. Patient seen and examined at bedside. No chest pain, palpitations, shortness of breath, nausea, vomiting, or abdominal pain. He lost his glucometer about a year ago and he does not know how his sugars have been running. Objective - Vital Signs Vital signs: Vital Signs Temp 98.3 F 01/21/20 12:00 Pulse 65 01/21/20 14:00 Resp 17 01/21/20 14:00 BP 123/78 01/21/20 14:00 Pulse Ox 94 L 01/21/20 14:00 Intake & Output 01/20/20 01/21/20 01/21/20 18:59 06:59 18:59 Intake Total 1847.167 926.667 700 Output Total 1300 550 300 Balance 547.167 376.667 400 Weight 113.398 kg 112.9 kg Intake: Intake, IV Titration 1847.167 926.667 700 Amount Ampicillin-Sulbactam 1.5 50 100 gm In Sodium Chloride 0.9 % 50 ml @ 100 mls/hr IVPB Q6HR [facility] Rx#:[id number] Diltiazem 125 mg In 77.167 101.667 Sodium Chloride 0.9% 100 ml @ 10 MG/HR 10 mls/hr IV .[id number] [facility] Rx#: [id number] Levofloxacin 750Mg-D5w 230 Pmx 750 mg In Dextrose/ Water 1 150ml.bag @ 100 mls/hr IVPB ONCE [facility] Rx#: [id number] Magnesium Sulfate-D5w Pmx 300 1 gm In Dextrose/Water 1 100ml.bag @ 100 mls/hr IVPB Q1H [facility] Rx#: [id number] Sodium Chloride 0.9% 1, 1190 825 600 000 ml @ 75 mls/hr IV . [id number] [facility] Rx#:[id number] Output: Urine 1300 550 300 Other: Voiding Method Urinal Urinal Urinal # Bowel Movements 1 - Labs CBC & Chem 7: 01/21/20 04:15 01/21/20 04:15 Labs: Abnormal Lab Results - Last 24 Hours (Table) 01/20/20 01/20/20 01/20/20 Range/Units 15:03 16:44 18:57 WBC (3.8-10.6) k/uL Neutrophils # (1.3-7.7) k/uL Chloride (98-107) mmol/L Carbon Dioxide (22-30) mmol/L Glucose (74-99) mg/dL POC Glucose (mg/dL) 177 H (75-99) mg/dL Hemoglobin A1c (4.0-6.0) % Plasma Lactic Acid Chris 5.0 H* 3.9 H* (0.7-2.0) mmol/L Calcium (8.4-10.2) mg/dL Total Protein (6.3-8.2) g/dL Albumin (3.5-5.0) g/dL 01/20/20 01/21/20 01/21/20 Range/Units 20:00 04:15 04:15 WBC (3.8-10.6) k/uL Neutrophils # (1.3-7.7) k/uL Chloride 108 H (98-107) mmol/L Carbon Dioxide 21 L (22-30) mmol/L Glucose 128 H (74-99) mg/dL POC Glucose (mg/dL) 147 H (75-99) mg/dL Hemoglobin A1c 6.9 H (4.0-6.0) % Plasma Lactic Acid Chris (0.7-2.0) mmol/L Calcium 8.1 L (8.4-10.2) mg/dL Total Protein 6.2 L (6.3-8.2) g/dL Albumin 3.4 L (3.5-5.0) g/dL 01/21/20 01/21/20 01/21/20 Range/Units 04:15 06:41 12:04 WBC 13.6 H (3.8-10.6) k/uL Neutrophils # 10.3 H (1.3-7.7) k/uL Chloride (98-107) mmol/L Carbon Dioxide (22-30) mmol/L Glucose (74-99) mg/dL POC Glucose (mg/dL) 132 H 143 H (75-99) mg/dL Hemoglobin A1c (4.0-6.0) % Plasma Lactic Acid Chris (0.7-2.0) mmol/L Calcium (8.4-10.2) mg/dL Total Protein (6.3-8.2) g/dL Albumin (3.5-5.0) g/dL Microbiology - Last 24 Hours (Table) 01/20/20 15:17 Urine Culture - Preliminary Urine,Clean Catch Assessment and Plan Assessment: Patient is here with Left ureteral calculus. Managed by urology on IVF and Flomax Leukocytosis - suspect due to stress from renal colic - off abx - repeat CBC in AM and follow fever profile - UA not consistent with infection DM2 controlled on oral medications - A1C 6.9 - SSI follow blood sugars - hold oral medications - new script for glucometer on discharge. Paroxysmal A fib with RVR - Cardio recs appreciated - Atenolol - Eliquis - echo reviewed EF 55-60%, LVH, Lactic acidosis, improving - IVF - Repeat in AM Sepsis ruled out DVT prophylaxis: Tonio Discussed with: Patient, nursing Anticipated discharge: per urology Anticipated discharge place: per urology A total of 25 minutes was spent on the care of this complex patient more than 50% of the time was spent in counseling and care coordination.
--- NOTE | 2020-01-21 15:44 | PN ---
PROGRESS NOTE Rian is a 59-year-old gentleman who was admitted to hospital with atrial fibrillation with rapid ventricular rate, also had hypertension and diabetes. Patient was on Eliquis, Tenormin, lisinopril and glyburide, had run out of his medications prior to coming in. On his presentation, he was in atrial fibrillation with RVR, was on Cardizem that was stopped after his heart rate dropped in the early hours of this morning. At the time of my evaluation, he appears comfortable at rest and is free of symptoms. On exam, the heart rate is 80 beats per minute. Blood pressure is 138/80, respiratory rate is 18. Chest exam reveals diminished air entry at the bases. Heart exam reveals first and second heart sounds. No gallop. No murmur. No rub. Abdomen is soft. Exam of extremities did not reveal any edema. Peripheral pulses are felt. LABS: Show that the hemoglobin is 14.2, platelet count is 370. Potassium is 4.1, creatinine is 0.7. ASSESSMENT: 1. Prominent atrial fibrillation with well-controlled ventricular rate. 2. Renal stones. 3. Hypertension. 4. Diabetes. PLAN: Patient is doing well. He is stable for discharge. MMODL / IJN: [id number] /
[2020-01-21 16:35] LABS: Glucose,Whole Blood 158 mg/dL (75-99)
[2020-01-21 17:19] LABS: Glucose,Whole Blood 134 mg/dL (75-99)
[2020-01-21] MEDS: SODIUM CHLORIDE 0.9% 1,000 ML IV SCH (17:20)
[2020-01-21 19:40] LABS: Glucose,Whole Blood 149 mg/dL (75-99)
[2020-01-22] MEDS: SODIUM CHLORIDE 0.9% 1,000 ML IV SCH (00:24)
[2020-01-22 06:51] LABS: Glucose,Whole Blood 144 mg/dL (75-99)
[2020-01-22] MEDS: FAMOTIDINE 20 MG/2 ML VIAL IV SCH (07:09)
[2020-01-22] MEDS: INSULIN ASPART (NovoLOG) 100 UNIT/ML VIAL SQ SCH ×2 (07:09→12:34)
[2020-01-22] MEDS: TAMSULOSIN 0.4 MG CAP.ER.24H PO SCH (08:26)
[2020-01-22] MEDS: APIXABAN 5 MG TAB PO SCH (08:26)
[2020-01-22] MEDS: ATORVASTATIN 40 MG TAB PO SCH (08:27)
[2020-01-22] MEDS: ATENOLOL 50 MG TAB PO SCH (08:27)
[2020-01-22] MEDS: LISINOPRIL 20 MG TAB PO SCH (08:27)
[2020-01-22 11:52] LABS: Glucose,Whole Blood 118 mg/dL (75-99)
[2020-01-22 13:01] LABS: HGB 15.2 gm/dL (13.0-17.5); MCH 30.3 pg (25.0-35.0); MCHC 33.8 g/dL (31.0-37.0); MCV 89.6 fL (80.0-100.0); Mean Platelet Volume 7.1; Platelet Count 328 k/uL (150-450); RBC 5.03 m/uL (4.30-5.90); RDW 14.6 % (11.5-15.5); WBC 10.5 k/uL (3.8-10.6)
[2020-01-22 13:19] LABS: African American GFR (CKD) >90 (>60 ml/min/1.73 sqM); Anion Gap 6 mmol/L; Blood Urea Nitrogen 15 mg/dL (9-20); Calcium 8.5 mg/dL (8.4-10.2); Carbon Dioxide 25 mmol/L (22-30); Chloride 107 mmol/L (98-107); Glucose 113 mg/dL (74-99); Non-African American GFR(CKD) >90 (>60 ml/min/1.73 sqM); Potassium 4.2 mmol/L (3.5-5.1); Sodium 138 mmol/L (137-145)
--- NOTE | 2020-01-22 13:52 | P.PN ---
Subjective Progress Note Date: 01/22/20 (delayed charting seen at 1215) Principal diagnosis: abdominal pain Patient is a 59 yo male with diabetes controlled on oral medications, A fib on anticoagulation with A fib, HTN and HLD who presented with abdominal pain. He was diagnosed with Renal colic due to left sided ureteral calculus. He went into A fib and need a cardizem gtt for a short while and then was rate controlled on his oral medications. Patient seen and examined at bedside. He denies any nausea, vomiting, abdominal pain. He is tolerating his diet well. We discussed that his hemoglobin A1c is 6.9 likely maintain off of oral diabetic medications and just watch his carbohydrate intake if he has already been without medications for 4 weeks. Initially his blood sugar is elevated on arrival which was likely reactive and has been well maintained without any insulin therapy since then. We discussed getting him a glucometer and he is in agreement as well as close follow-up with his PCP. Objective - Vital Signs Vital signs: Vital Signs Temp 97.9 F 01/22/20 08:00 Pulse 72 01/22/20 11:00 Resp 20 01/22/20 11:00 BP 146/105 01/22/20 11:00 Pulse Ox 94 L 01/22/20 11:00 Intake & Output 01/21/20 01/22/20 01/22/20 18:59 06:59 18:59 Intake Total 9613 533 4724 Output Total 600 500 600 Balance 400 400 880 Weight 114 kg Intake: Intake, IV Titration 1000 900 450 Amount Ampicillin-Sulbactam 1.5 100 gm In Sodium Chloride 0.9 % 50 ml @ 100 mls/hr IVPB Q6HR [facility] Rx#:[id number] Sodium Chloride 0.9% 1, 900 900 450 000 ml @ 75 mls/hr IV . [id number] [facility] Rx#:[id number] Oral 1030 Output: Urine 600 500 600 Other: Voiding Method Urinal Urinal Urinal # Bowel Movements 1 - Exam General: non toxic, no distress, appears at stated age, obese Derm: warm, dry Head: atraumatic, normocephalic, symmetric Eyes: EOMI, no lid lag, anicteric sclera Mouth: no lip lesion, mucus membranes moist Cardiovascular: S1S2 irreg, no murmur, positive posterior tibial pulse bilateral, Lungs: CTA bilateral, no rhonchi, no rales , no accessory muscle use Abdominal: soft, nontender to palpation, no guarding, no appreciable organomegaly Ext: no gross muscle atrophy, no edema, no contractures Neuro: CN II-XI grossly intact, no focal neuro deficits Psych: Alert, oriented, appropriate affect - Labs CBC & Chem 7: 01/22/20 12:39 01/22/20 12:39 Labs: Abnormal Lab Results - Last 24 Hours (Table) 01/21/20 01/21/20 01/21/20 Range/Units 16:34 17:18 19:38 Creatinine (0.66-1.25) mg/dL Glucose (74-99) mg/dL POC Glucose (mg/dL) 158 H 134 H 149 H (75-99) mg/dL 01/22/20 01/22/20 01/22/20 Range/Units 06:50 11:50 12:39 Creatinine 0.65 L (0.66-1.25) mg/dL Glucose 113 H (74-99) mg/dL POC Glucose (mg/dL) 144 H 118 H (75-99) mg/dL Microbiology - Last 24 Hours (Table) 01/20/20 18:57 Blood Culture - Preliminary Blood No Growth after 24 hours 01/20/20 15:17 Urine Culture - Final Urine,Clean Catch Assessment and Plan Assessment: Patient is here with Left ureteral calculus. Managed by urology on IVF and Flomax DM2 controlled on oral medications - A1C 6.9 - SSI follow blood sugars - hold oral medications, does not need to resume on discharge as A1C <7 off medications, Follow-up with PCP. - instructions given: Check blood sugars every morning and make a log for Dr. Scott if morning blood sugar is greater than 200 for 2 days in a row resume glyburide - new script for glucometer signed and case management aware Paroxysmal A fib with RVR - Cardio recs appreciated - Atenolol - Eliquis - echo reviewed EF 55-60%, LVH Lactic acidosis, improved Sepsis, ruled out Leukocytosis, resolved Medically optimized for discharge at the discretion of Urology. Glucometer o rdered. Refill for Eliquis, Lisinopril, atenolol sent to pharmacy. PCP Follow- up on discharge tab. DVT prophylaxis: Eliquis Discussed with: Patient, nursing Anticipated discharge: per urology Anticipated discharge place: per urology A total of 25 minutes was spent on the care of this complex patient more than 50% of the time was spent in counseling and care coordination.
--- NOTE | 2020-01-22 15:04 | PN ---
PROGRESS NOTE A 59-year-old gentleman admitted to hospital with atrial fibrillation. Heart rate is well controlled. He is currently doing well and is ready to go home. On exam, heart rate is 78 beats per minute, irregular. Blood pressure is 140/102, respiratory rate is 18. Chest exam reveals diminished air entry at the bases. Heart exam reveals first and second heart sounds, irregular rhythm. Exam of extremities did not reveal any edema. ASSESSMENT: 1. Permanent atrial fibrillation with controlled ventricular rate. 2. Urinary tract infection. 3. Hypertension. PLAN: Patient is doing well. Will continue the Eliquis, atenolol, Lipitor, Zestril. Followup with me in a week's time. MMODL / IJN: [id number] /
[2020-01-22 16:18] VITALS: TEMP 98.3
[2020-01-22 16:55] LABS: Glucose,Whole Blood 145 mg/dL (75-99)
[2020-01-22 17:07] VITALS: BP 152/101; PULSE 86; RESP 15
--- NOTE | 2020-01-22 18:01 | P.DS ---
Providers Date of admission: 01/20/20 06:42 Expected date of discharge: 01/22/20 Attending physician: Robbin Hayward Consults: 01/20/20 06:43 Consult Physician Routine Consulting Provider: Elvi Mcneil Consult Reason/Comments: medical management Do you want consulting provider notified?: Yes 01/20/20 09:18 Consult Physician Routine Consulting Provider: Aureliano Sebastian Consult Reason/Comments: a fib, not taking medication, elevated heart rate Do you want consulting provider notified?: Already Contacted Primary care physician: Payton Scott [facility] Course: The patient was admitted to the ICU for management of his atrial fibrillation. He was treated with a Cardizem drip, and his oral medications were resumed. The atrial fibrillation resolved. He was admitted with renal colic, but was comfortable throughout the hospitalization. He is being discharged home per medicine, and arrangements will be made for him to undergo outpatient ureteroscopic removal of his left proximal ureteral calculus. Pertinent Studies: 2D-Echo Patient Condition at Discharge: Good Plan - Discharge Summary New Discharge Prescriptions: New Atorvastatin [Lipitor] 40 mg PO DAILY #30 tab glyBURIDE [Diabeta] 2.5 mg PO AC-BRKFST #30 tablet Tamsulosin [Flomax] 0.4 mg PO DAILY #30 cap Hydrocodone/Acetaminophen [[place] 5-325] 1 - 2 each PO Q4HR PRN #10 tab PRN Reason: Pain Continue Atenolol [Tenormin] 50 mg PO BID #60 tab Apixaban [Eliquis] 5 mg PO BID #60 tab Lisinopril 20 mg PO DAILY #30 tab Discontinued glyBURIDE [Glyburide] 2.5 mg PO BID Aspirin EC [Ecotrin Low Dose] 81 mg PO DAILY #30 tablet.dr Discharge Medication List Atenolol [Tenormin] 50 mg PO BID #60 tab 10/29/15 [Rx] Apixaban [Eliquis] 5 mg PO BID #60 tab 01/22/20 [Rx] Atorvastatin [Lipitor] 40 mg PO DAILY #30 tab 01/22/20 [Rx] Hydrocodone/Acetaminophen [[place] 5-325] 1 - 2 each PO Q4HR PRN #10 tab 01/22/20 [Rx] Lisinopril 20 mg PO DAILY #30 tab 01/22/20 [Rx] Tamsulosin [Flomax] 0.4 mg PO DAILY #30 cap 01/22/20 [Rx] glyBURIDE [Diabeta] 2.5 mg PO AC-BRKFST #30 tablet 01/22/20 [Rx] Follow up Appointment(s)/Referral(s): Payton Scott MD [Primary Care Provider] - 1-2 days Estuardo Oliver MD [STAFF PHYSICIAN] - 1 Week Activity/Diet/Wound Care/Special Instructions: Special Instructions: Check blood sugars every morning and make a log for Dr. Scott if morning blood sugar is greater than 200 for 2 days in a row resume glyburide Strain urine. Activity as tolerated. Drink plenty of fluids. Patient will be contacted by Dr. Hayward regarding follow-up. Discharge Disposition: HOME SELF-CARE
--- NOTE | 2020-01-24 08:00 | CDI ---
Documentation Clarification Form Date: 01/24/20 From: Kimberley Ortiz Phone: If you have a question about this query, please contact Solange Arellano, Licensed [employer] at [phone] between 8am and 5pm. Admit Date: 01/20/20 Discharge Date: 01/22/20 Patient Name: GLORIA CROUCH Visit Number: [id number] ATTENTION: The Clinical Documentation Specialists (CDI) and [facility] Coding Staff appreciate your assistance in clarifying documentation. Please respond to the clarification below the line at the bottom and electronically sign. The CDI & [facility] Coding staff will review the response and follow-up if needed. Please note: Queries are made part of the Legal Health Record. If you have any questions, please contact the author of this message via ITS. Dear Dr. Mary Amin, The patient has uncontrolled Type II diabetes, as indicated in your consult.. POC Glucose: 231, 246, 294, 177, 147, 132, 143, 158, 134, 149, 144, 118, 145 Glucose: 202, 128, 113 A1c: 6.9 Treatment: NovoLOG sliding scale, consistent carbohydrate diet Per [facility] 2016 - query the provider for clarification whether the patient has hyperglycemia or hypoglycemia so that the appropriate code may be reported - uncontrolled diabetes indicates that the patient's blood sugar is not at an acceptable level, because it is either too high or too low. In order to capture the severity of Illness and necessary documentation specificity, please clarify if Type 2 uncontrolled diabetes is: Hyperglycemia Other, please specify Unable to Determine MTDD
--- NOTE | 2020-02-01 09:33 | CDI ---
Documentation Clarification Form Date: 01/24/20 From: Kimberley Ortiz Phone: If you have a question about this query, please contact Solange Arellano, [employer] Sales Representative at [phone] between 8am and 5pm. Admit Date: 01/20/20 Discharge Date: 01/22/20 Patient Name: GLORIA CROUCH Visit Number: [id number] ATTENTION: The Clinical Documentation Specialists (CDI) and [facility] Coding Staff appreciate your assistance in clarifying documentation. Please respond to the clarification below the line at the bottom and electronically sign. The CDI & [facility] Coding staff will review the response and follow-up if needed. Please note: Queries are made part of the Legal Health Record. If you have any questions, please contact the author of this message via ITS. Dear Dr. Mary Amin, The patient has uncontrolled Type II diabetes, as indicated in your consult.. POC Glucose: 231, 246, 294, 177, 147, 132, 143, 158, 134, 149, 144, 118, 145 Glucose: 202, 128, 113 A1c: 6.9 Treatment: NovoLOG sliding scale, consistent carbohydrate diet Per [facility] 2016 - query the provider for clarification whether the patient has hyperglycemia or hypoglycemia so that the appropriate code may be reported - uncontrolled diabetes indicates that the patient's blood sugar is not at an acceptable level, because it is either too high or too low. In order to capture the severity of Illness and necessary documentation specificity, please clarify if Type 2 uncontrolled diabetes is: Hyperglycemia Other, please specify Unable to Determine Uncontrolled Diabetes during hospital stay secondary to hyperglycemia MTDD
== END 2020-01-22 18:59 | disposition home or self-care (01) | DRG 694 ==
LOC: EC 03:38 → 2SICU 06:42
PROVIDERS: ADMIT Urology; ATTEND Urology
DX: N13.2 Hydronephrosis with renal and ureteral calculous obstruction (principal); E87.2 Acidosis; I48.21 Permanent atrial fibrillation; I50.22 Chronic systolic (congestive) heart failure; I11.0 Hypertensive heart disease with heart failure; E66.01 Morbid (severe) obesity due to excess calories; E11.65 Type 2 diabetes mellitus with hyperglycemia; I25.82 Chronic total occlusion of coronary artery; E78.5 Hyperlipidemia, unspecified; Z20.828 Contact with and (suspected) exposure to other viral communicable diseases; I25.10 Atherosclerotic heart disease of native coronary artery without angina pectoris; K57.30 Diverticulosis of large intestine without perforation or abscess without bleeding; T50.906A Underdosing of unspecified drugs, medicaments and biological substances, initial encounter; Z91.128 Patient's intentional underdosing of medication regimen for other reason; Z68.35 Body mass index [BMI] 35.0-35.9, adult; Z79.01 Long term (current) use of anticoagulants; Z79.82 Long term (current) use of aspirin; Z79.84 Long term (current) use of oral hypoglycemic drugs; Z79.899 Other long term (current) drug therapy; Z87.442 Personal history of urinary calculi; Z87.891 Personal history of nicotine dependence; Z95.5 Presence of coronary angioplasty implant and graft; Z87.19 Personal history of other diseases of the digestive system; Z98.890 Other specified postprocedural states; Y63.6 Underdosing and nonadministration of necessary drug, medicament or biological substance; Z82.49 Family history of ischemic heart disease and other diseases of the circulatory system; Z83.3 Family history of diabetes mellitus
CPT/HCPCS: 36415; 71275; 74174; 80048; 80053; 81001; 82150; 83036; 83605; 83690; 83735; 84443; 84484; 85025; 85027; 87040; 87086; 87324; 87635; 93005; 93306; 96365; 96367; 96374; 96375; 96376; 99285

== ENCOUNTER → 2020-03-03 | Outpatient (CLI) | payer BC ==
--- NOTE | 2020-03-03 11:23 | US ---
EXAMINATION TYPE: US kidneys/renal and bladder DATE OF EXAM: 03/03/2020 COMPARISON: CTA aorta January 20, 2020. CLINICAL HISTORY: N13.30 Hx Left hydronephrosis. EXAM MEASUREMENTS: Right Kidney: 13.7 x 5.8 x 5.4 cm Left Kidney: 14.1 x 6.3 x 6.0 cm Patient of large body habitus. Right Kidney: No hydronephrosis or masses seen Left Kidney: cyst with ?calcified wall measuring 1.5 x 1.4 x 1.7cm Bladder: wnl There is no evidence for hydronephrosis at this point in time. Left kidney shows 1.5 cm simple appear ing thin-walled cyst laterally mid to lower pole level. The urinary bladder is not greatly. Bilater al ureteral jets are not seen. When scanning right kidney adjacent liver is heterogeneously hyperecho ic consistent with diffuse fatty infiltration. IMPRESSION: Interval resolution of left-sided obstructive hydronephrosis.
== END | disposition home or self-care (01) ==
LOC: RADUSWWP 10:42
PROVIDERS: ATTEND Urology
DX: N13.30 Unspecified hydronephrosis (principal)
CPT/HCPCS: 76770

== ENCOUNTER 2021-07-01 07:55 | Emergency (ER) | payer BC ==
[2021-07-01 08:02] VITALS: RESP 18; TEMP 97.8
[2021-07-01] MEDS ORDERED: MORPHINE SULFATE 4 MG/ML SYRINGE IV STA (08:19)
[2021-07-01] MEDS ORDERED: SODIUM CHLORIDE 0.9% 1,000 ML IV STA (08:19)
[2021-07-01] MEDS ORDERED: ONDANSETRON 4 MG/2 ML VIAL IVP STA (08:22)
--- NOTE | 2021-07-01 08:22 | ED ---
General Adult HPI - General Chief complaint: Abdominal Pain Stated complaint: Abdominal Pain Time Seen by Provider: 07/01/21 08:09 Source: patient Mode of arrival: ambulatory Limitations: no limitations - History of Present Illness Initial comments: Dictation was produced using [employer] dictation software. please excuse any grammatical, word or spelling errors. Chief Complaint: 61-year-old male with past medical history of diverticulitis presents with severe abdominal pain History of Present Illness: This 61-year-old male since yesterday he's been having worsening abdominal pain. Patient states his pain to his whole abdomen worse in the suprapubic area. Patient has history of diverticulitis. He also has history of hernia. He states that his hernia hurts more. Patient reports mild constitutional symptoms. No diarrhea. No dysuria. Takes and a coagulation medications for A. fib. Patient's pain is constant and nonradia ting. He reports that it feels like diverticulitis he's been diagnosed within the past. The ROS documented in this emergency department record has been reviewed and confirmed by me. Those systems with pertinent positive or negative responses have been documented in the HPI. All other systems are other negative and/or noncontributory. PHYSICAL EXAM: General Impression: Alert and oriented x3, acute distress due to pain, mild diaphoresis HEENT: Normocephalic atraumatic, extra-ocular movements intact, pupils equal and reactive to light bilaterally, mucous membranes moist. Cardiovascular: Heart regular rate and rhythm Chest: Able to complete full sentences, no retractions, no tachypnea Abdomen: abdomen soft, diffuse tenderness worse in the suprapubic area, there is a umbilical hernia with very mild erythema to the overlying skin, reduction of umbilical hernia is unsuccessful though patient tolerated manipulation of that area well, non-distended, no organomegaly Musculoskeletal: Pulses present and equal in all extremities, no peripheral edema Motor: no focal deficits noted Neurological: CN II-XII grossly intact, no focal motor or sensory deficits noted Skin: Intact with no visualized rashes Psych: Normal affect and mood ED course: 61-year-old male presents with severe abdominal pain since yesterday. Vital signs upon arrival are within acceptable limits. Laboratory evaluation obtained. Mild leukocytosis of 11.4. Metabolic panel shows potassium 5.2. Lipase of 492. Urinalysis is negative. Computed tomography scan abdomen and pelvis shows findings concerning for diverticulitis versus underlying neoplasm. Clinical presentation concerning for diverticulitis. Patient reevaluated at bedside at 10:45 AM. Patient's pain is controlled. He is no longer nauseated and vomiting. He is well-appearing. Disposition options were discussed. Patient is agreeable for discharge. Return precautions discussed patient is understandable and agreeable with plan. Advised follow-up with primary care doctor. - Related Data Previous Rx's Medication Instructions Recorded atenoloL [Tenormin] 50 mg PO BID #60 tab 10/29/15 Apixaban [Eliquis] 5 mg PO BID #60 tab 01/22/20 Atorvastatin [Lipitor] 40 mg PO DAILY #30 tab 01/22/20 Hydrocodone/Acetaminophen [[place] 1 - 2 each PO Q4HR PRN #10 tab 01/22/20 5-325] Tamsulosin [Flomax] 0.4 mg PO DAILY #30 cap 01/22/20 glyBURIDE [Diabeta] 2.5 mg PO AC-BRKFST #30 tablet 01/22/20 lisinopriL 20 mg PO DAILY #30 tab 01/22/20 Amoxic-Pot Clav 875-125Mg 1 tab PO Q8H 14 Days #42 tab 07/01/21 [Augmentin 875-125] HYDROcodone/APAP 5-325MG [[place] 1 tab PO Q6HR PRN 3 Days #12 tab 07/01/21 5-325] Ondansetron Odt [Zofran Odt] 4 mg PO Q8HR PRN #12 tab 07/01/21 Allergies Allergy/AdvReac Type Severity Reaction Status Date / Time No Known Allergies Allergy Verified 07/01/21 07:59 Review of Systems ROS Statement: Those systems with pertinent positive or pertinent negative responses have been documented in the HPI. ROS Other: All systems not noted in ROS Statement are negative. Past Medical History Past Medical History: Atrial Fibrillation, Coronary Artery Disease (CAD), Heart Failure, Diabetes Mellitus, Hyperlipidemia, Hypertension Additional Past Medical History / Comment(s): pancreatitis, diverticulitis, systolic heart failure History of Any Multi-Drug Resistant Organisms: None Reported Past Surgical History: Heart Catheterization With Stent Additional Past Surgical History / Comment(s): teeth surgery Past Anesthesia/Blood Transfusion Reactions: No Reported Reaction Date of Last Stent Placement:: 2015 Past Psychological History: No Psychological Hx Reported Smoking Status: Never smoker Past Alcohol Use History: None Reported Past Drug Use History: Marijuana - Past Family History Father Family Medical History: Coronary Artery Disease (CAD), Diabetes Mellitus, Myocardial Infarction ([place]) Additional Family Medical History / Comment(s): heart disease General Exam Limitations: no limitations Course Vital Signs 07/01/21 08:00 Temperature 97.8 F Pulse Rate 89 Respiratory 18 Rate Blood Pressure 179/99 O2 Sat by Pulse 99 Oximetry Medical Decision Making - Lab Data Result diagrams: 07/01/21 08:30 07/01/21 08:30 Lab Results 07/01/21 07/01/21 07/01/21 Range/Units 08:30 08:30 08:30 WBC 11.4 H (3.8-10.6) k/uL RBC 5.52 (4.30-5.90) m/uL Hgb 16.1 (13.0-17.5) gm/dL Hct 49.3 (39.0-53.0) % MCV 89.4 (80.0-100.0) fL MCH 29.2 (25.0-35.0) pg MCHC 32.7 (31.0-37.0) g/dL RDW 13.8 (11.5-15.5) % Plt Count 300 (150-450) k/uL MPV 7.6 Neutrophils % 74 % Lymphocytes % 15 % Monocytes % 7 % Eosinophils % 2 % Basophils % 1 % Neutrophils # 8.4 H (1.3-7.7) k/uL Lymphocytes # 1.8 (1.0-4.8) k/uL Monocytes # 0.8 (0-1.0) k/uL Eosinophils # 0.2 (0-0.7) k/uL Basophils # 0.1 (0-0.2) k/uL Sodium 141 (137-145) mmol/L Potassium 5.2 H (3.5-5.1) mmol/L Chloride 109 H (98-107) mmol/L Carbon Dioxide 21 L (22-30) mmol/L Anion Gap 11 mmol/L BUN 13 (9-20) mg/dL Creatinine 0.75 (0.66-1.25) mg/dL Est GFR (CKD-EPI)AfAm >90 (>60 ml/min/1.73 sqM) Est GFR (CKD-EPI)NonAf >90 (>60 ml/min/1.73 sqM) Glucose 194 H (74-99) mg/dL Calcium 9.4 (8.4-10.2) mg/dL Total Bilirubin 0.9 (0.2-1.3) mg/dL AST 20 (17-59) U/L ALT 14 (4-49) U/L Alkaline Phosphatase 95 (38-126) U/L Total Protein 7.2 (6.3-8.2) g/dL Albumin 4.0 (3.5-5.0) g/dL Lipase 492 H (23-300) U/L Urine Color Light Yellow Urine Appearance Clear (Clear) Urine pH 5.5 (5.0-8.0) Ur Specific [place] 1.013 (1.001-1.035) Urine Protein Trace H (Negative) Urine Glucose (UA) Trace H (Negative) Urine Ketones Negative (Negative) Urine Blood Negative (Negative) Urine Nitrite Negative (Negative) Urine Bilirubin Negative (Negative) Urine Urobilinogen <2.0 (<2.0) mg/dL Ur Leukocyte Esterase Negative (Negative) Disposition Clinical Impression: Diverticulitis Disposition: HOME SELF-CARE Condition: Fair Instructions (If sedation given, give patient instructions): Diverticulitis (ED), Diverticulitis Diet (ED) Additional Instructions: Please seek immediate medical attention if you have inability to tolerate oral medications, worsening pain or fever. These may be signs of worsening abdominal infection Prescriptions: Amoxic-Pot Clav 875-125Mg [Augmentin 875-125] 1 tab PO Q8H 14 Days #42 tab HYDROcodone/APAP 5-325MG [[place] 5-325] 1 tab PO Q6HR PRN 3 Days #12 tab PRN Reason: Severe Pain Ondansetron Odt [Zofran Odt] 4 mg PO Q8HR PRN #12 tab PRN Reason: Nausea Is patient prescribed a controlled substance at d/c from ED?: Yes If prescribed controlled substance>3 days was MAPS reviewed?: Prescribed <3 Days Referrals: Payton Scott MD [Primary Care Provider] - 1-2 days
[2021-07-01 09:18] LABS: ALT 14 U/L (4-49); AST 20 U/L (17-59); African American GFR (CKD) >90 (>60 ml/min/1.73 sqM); Alkaline Phosphatase 95 U/L (38-126); Anion Gap 11 mmol/L; Blood Urea Nitrogen 13 mg/dL (9-20); Calcium 9.4 mg/dL (8.4-10.2); Carbon Dioxide 21 mmol/L (22-30); Chloride 109 mmol/L (98-107); Glucose 194 mg/dL (74-99); Lipase 492 U/L (23-300); Non-African American GFR(CKD) >90 (>60 ml/min/1.73 sqM); Potassium 5.2 mmol/L (3.5-5.1); Sodium 141 mmol/L (137-145); Total Bilirubin 0.9 mg/dL (0.2-1.3); Total Protein 7.2 g/dL (6.3-8.2)
[2021-07-01 09:21] LABS: Basophils # (A) 0.1 k/uL (0-0.2); Basophils % (A) 1 %; Eosinophils # (A) 0.2 k/uL (0-0.7); Eosinophils % (A) 2 %; HCT 49.3 % (39.0-53.0); HGB 16.1 gm/dL (13.0-17.5); Lymphocytes # (A) 1.8 k/uL (1.0-4.8); Lymphocytes % (A) 15 %; MCH 29.2 pg (25.0-35.0); MCHC 32.7 g/dL (31.0-37.0); MCV 89.4 fL (80.0-100.0); Mean Platelet Volume 7.6; Monocytes # (A) 0.8 k/uL (0-1.0); Monocytes % (A) 7 %; Neutrophils # (A) 8.4 k/uL (1.3-7.7); Neutrophils % (A) 74 %; Platelet Count 300 k/uL (150-450); RBC 5.52 m/uL (4.30-5.90); RDW 13.8 % (11.5-15.5); WBC 11.4 k/uL (3.8-10.6)
[2021-07-01 10:17] LABS: Appearance,Urine Clear (Clear); Bilirubin,Urine Negative (Negative); Blood,Urine Negative (Negative); Color,Urine Light Yellow; Glucose,Urine (UA) Trace (Negative); Ketones,Urine Negative (Negative); Leukocyte Esterase,Urine Negative (Negative); Nitrite,Urine Negative (Negative); PH, Urine 5.5 (5.0-8.0); Protein,Urine Trace (Negative); Specific Gravity,Urine 1.013 (1.001-1.035); Urobilinogen,Urine <2.0 mg/dL (<2.0)
--- NOTE | 2021-07-01 10:35 | CT ---
EXAMINATION TYPE: CT abdomen pelvis w con DATE OF EXAM: 07/01/2021 COMPARISON: 12/04/2018 HISTORY: Abd pain CT DLP: 1945.5 mGycm CONTRAST: CT scan of the abdomen and pelvis is performed without Oral Contrast and with IV Contrast, patient in jected with 100 mL of Isovue 300. FINDINGS: LUNG BASES-: No visible nodule. No infiltrate. LIVER/GB: No calcified gallstones. No space occupying hepatic lesion. Biliary tree is of normal ca liber. PANCREAS: No inflammation. No distinct mass. SPLEEN: No splenic enlargement. No lesion seen. ADRENALS: No nodule. No thickening. KIDNEYS/BLADDER: No hydronephrosis. No nephrolithiasis. Renal cortical cyst left kidney measures 1. 5 cm. Urinary bladder grossly unremarkable. BOWEL: Normal appendix. Wall thickening and surrounding inflammatory change involving the proximal si gmoid colon which may reflect acute diverticulitis. Underlying neoplasm is not excluded. Correlate cl inically. The remaining small and large bowel are of normal caliber. GENITAL ORGANS: No gross abnormality. LYMPH NODES: Several mildly prominent periportal lymph nodes measuring up to 1.1 cm. No additional ly mph nodes greater than 1 cm seen. AORTA: No significant abnormality. OSSEOUS STRUCTURES: No significant abnormality is seen. OTHER: Fat-containing umbilical hernia noted. IMPRESSION: 1. Wall thickening and inflammatory change involving the proximal sigmoid colon may reflect diverticu litis. Underlying neoplasm is not excluded. Correlate clinically and consider direct visualization wh en appropriate. 2. Nonspecific mildly prominent periportal lymph nodes.
[2021-07-01 10:52] VITALS: BP 154/99; PULSE 82
== END 2021-07-01 10:51 | disposition home or self-care (01) ==
LOC: EC 07:55
DX: K57.92 Diverticulitis of intestine, part unspecified, without perforation or abscess without bleeding (principal); E11.9 Type 2 diabetes mellitus without complications; E78.5 Hyperlipidemia, unspecified; I11.0 Hypertensive heart disease with heart failure; I25.10 Atherosclerotic heart disease of native coronary artery without angina pectoris; I48.91 Unspecified atrial fibrillation; I50.9 Heart failure, unspecified; F12.90 Cannabis use, unspecified, uncomplicated
CPT/HCPCS: 36415; 80053; 83690; 85025; 81003; 74177; 99284; 96374; 96375; 96361; J2270; J2405; 99285